=== PATIENT | male | born 1960 | race Caucasian/White ===

== ENCOUNTER 2017-07-21 03:07 | Inpatient (IN) | payer MEDICAID, OTHER ==
[~2017-07-21] VITALS: Ht 180.3 cm; Wt 60.1 kg
[~2017-07-21 03:07] MED LIST: COMBAER INH; COUM10TA PO; HYDR12.56 PO; IBUP-238 PO; METO100T PO; PRIL40CA PO
[2017-07-21 03:18] VITALS: BP 138/74; PULSE 88; RESP 22; O2SAT 100
--- NOTE | 2017-07-21 03:24 | PD ---
HPI Chief Complaint: Miller act Time Seen by Provider: 03:22 Travel History International Travel<30 days: No Contact w/Intl Traveler<30days: No Traveled to known affect area: No History of Present Illness HPI 56-year-old male presents under Miller act initiated by the Police Department. According to his paperwork the patient was seen in a parking lot. The patient said that he has been out of his medication and he has been having auditory hallucinations which have been telling him to kill himself. He has also had visual hallucinations in which she sees viral area was chasing him. He reportedly said that he was going to cut his throat with a knife. The patient was initially transported to [facility] but because he is on lifelong Coumadin he was felt to be outside of their scope of care. His only medical complaint at this time is of a productive cough with green sputum production for the past 2-3 days. He has no other complaints at this time. PFSH Past Medical History Arthritis: No Asthma: No Autoimmune Disease: No Blood Disorders: Yes (CLOTTING DISORDERS) Bipolar Disorder: Yes Anxiety: Yes Depression: Yes Heart Rhythm Problems: No Cancer: No Cardiovascular Problems: No High Cholesterol: No Chemotherapy: No Chest Pain: No Congestive Heart Failure: No COPD: Yes Cerebrovascular Accident: No Diabetes: No Diminished Hearing: Yes (PT STS BILATERAL) Endocrine: No Gastrointestinal Disorders: Yes (RECENT GASTRITIS) GERD: Yes Glaucoma: No Genitourinary: No Headaches: No Hepatitis: No Hiatal Hernia: No Hypertension: Yes Immune Disorder: No Kidney Stones: No Musculoskeletal: No Neurologic: No Psychiatric: Yes Reproductive: No Respiratory: Yes (STS HAD A COLLAPSED LUNG REPAIRED.) Migraines: No Myocardial Infarction: No Radiation Therapy: No Renal Failure: No Schizophrenia: Yes Seizures: No Sickle Cell Disease: No Sleep Apnea: No Thyroid Disease: No Ulcer: No Past Surgical History Abdominal Surgery: No AICD: No Appendectomy: No Arteriovenous Shunt: No Cholecystectomy: No Ear Surgery: No Endocrine Surgery: No Eye Surgery: No Genitourinary Surgery: No Gynecologic Surgery: No Insulin Pump: No Joint Replacement: No Oral Surgery: No Pacemaker: No Thoracic Surgery: Yes (STS HAD A COLLAPSED LUNG) Other Surgery: Yes (AMPUTATION OF FINGERS OF LEFT HAND) Social History Alcohol Use: Yes (12 PACK A DAY) Tobacco Use: Yes (PT STS 1 PPD) Substance Use: Yes (CRACK COCAINE RECENT 10 DAYS AGO) Allergies-Medications (Allergen,Severity, Reaction): Coded Allergies: morphine (Unverified Allergy, Unknown, STS MAKES HIM SICK, 03/22/17) Reported Meds & Prescriptions Reported Meds & Active Scripts Active Reported Zoloft (Sertraline HCl) 25 Mg Tab 20 Mg PO DAILY Latuda (Lurasidone) 60 Mg Tab 60 Mg PO DAILY Atrovent HFA 12.9 GM Inh (Ipratropium [place]) 17 Mcg/Actuation Aer 2 Puff INH Q6HR PRN Symbicort Inh (Budesonide/Formoterol Fumarate) 160-4.5 Mcg/Act Aero 2 Puff INH Q12HR Folic Acid 1 Mg Tablet PO DAILY Nitroglycerin SL (Nitroglycerin) 0.4 Mg Subl 0.4 Mg SL DIRECTED PRN ONE TABLET UNDER THE TONGUE NEEDED FOR CHEST PAIN, MAY REPEAT EVERY FIVE MINUTES FOR A TOTAL OF 3 DOSES OR CALL 911 IF NO RELIEF Atorvastatin (Atorvastatin Calcium) 20 Mg Tab 20 Mg PO HS Hydrochlorothiazide 12.5 Mg Cap 12.5 Mg PO DAILY Trazodone (Trazodone HCl) 100 Mg Tablet 200 Mg PO HS Diltiazem ER 24 HR 240 Mg Caper 120 Mg PO DAILY Aspirin 81 Mg Chew 81 Mg CHEW DAILY Omeprazole 40 Mg Cap 40 Mg PO DAILY Warfarin 5 Mg Tab 5 Mg PO DAILY Oxycodone (Oxycodone HCl) 5 Mg Cap 5 Mg PO Q6H PRN Lisinopril 5 Mg Tab 5 Mg PO DAILY Review of Systems Except as stated in HPI: all other systems reviewed are Neg Physical Exam Narrative GENERAL: Well-developed well-nourished male in no acute distress SKIN: Warm and dry. HEAD: Atraumatic. Normocephalic. EYES: Pupils equal and round. No scleral icterus. No injection or drainage. ENT: No nasal bleeding or discharge. Mucous membranes pink and moist. NECK: Trachea midline. No JVD. CARDIOVASCULAR: Regular rate and rhythm. No murmur appreciated. RESPIRATORY: No accessory muscle use. Clear to auscultation. Breath sounds equal bilaterally. GASTROINTESTINAL: Abdomen soft, non-tender, nondistended. Hepatic and splenic margins not palpable. MUSCULOSKELETAL: Previous left hand surgery noted. NEUROLOGICAL: Awake and alert. No obvious cranial nerve deficits. Motor grossly within normal limits. Normal speech. PSYCHIATRIC: Appropriate mood and affect Data Data Last Documented VS Vital Signs Date Time Temp Pulse Resp B/P (MAP) Pulse Ox O2 Delivery O2 Flow Rate FiO2 07/21/17 03:18 88 22 138/74 (95) 100 Orders Orders Complete Blood Count With Diff (07/21/17 03:21) Comprehensive Metabolic Panel (07/21/17 03:21) Psych Screen (07/21/17 03:21) Drug Screen, Random Urine (07/21/17 03:21) Alcohol (Ethanol) (07/21/17 03:21) Chest, Single Ap (07/21/17 ) Prothrombin Time / Inr (Pt) (07/21/17 03:21) Potassium Chloride (Kcl) (07/21/17 05:00) Warfarin (Coumadin) (07/21/17 05:00) Labs Laboratory Tests Test 07/21/17 03:45 White Blood Count 11.0 TH/MM3 Red Blood Count 4.62 MIL/MM3 Hemoglobin 14.6 GM/DL Hematocrit 43.3 % Mean Corpuscular Volume 93.8 FL Mean Corpuscular Hemoglobin 31.6 PG Mean Corpuscular Hemoglobin Concent 33.7 % Red Cell Distribution Width 15.4 % Platelet Count 223 TH/MM3 Mean Platelet Volume 7.3 FL Neutrophils (%) (Auto) 94.1 % Lymphocytes (%) (Auto) 4.7 % Monocytes (%) (Auto) 1.0 % Eosinophils (%) (Auto) 0.1 % Basophils (%) (Auto) 0.1 % Neutrophils # (Auto) 10.3 TH/MM3 Lymphocytes # (Auto) 0.5 TH/MM3 Monocytes # (Auto) 0.1 TH/MM3 Eosinophils # (Auto) 0.0 TH/MM3 Basophils # (Auto) 0.0 TH/MM3 CBC Comment AUTO DIFF Differential Comment AUTO DIFF CONFIRMED Platelet Estimate NORMAL Platelet Morphology Comment NORMAL Prothrombin Time 13.2 SEC Prothromb Time International Ratio 1.3 RATIO Blood Urea Nitrogen 7 MG/DL Creatinine 0.75 MG/DL Random Glucose 119 MG/DL Total Protein 7.3 GM/DL Albumin 3.4 GM/DL Calcium Level 8.5 MG/DL Alkaline Phosphatase 201 U/L Aspartate Amino Transf (AST/SGOT) 278 U/L Alanine Aminotransferase (ALT/SGPT) 738 U/L Total Bilirubin 0.4 MG/DL Sodium Level 135 MEQ/L Potassium Level 3.2 MEQ/L Chloride Level 100 MEQ/L Carbon Dioxide Level 28.6 MEQ/L Anion Gap 6 MEQ/L Estimat Glomerular Filtration Rate 108 ML/MIN Ethyl Alcohol Level 169 MG/DL MDM Medical Decision Making Medical Screen Exam Complete: Yes Emergency Medical Condition: Yes Medical Record Reviewed: Yes Differential Diagnosis Substance induced mood disorder, acute psychosis, schizophrenia, schizoaffective disorder, adjustment reaction, major depressive disorder Narrative Course 56-year-old male here under Miller act for psychiatric evaluation. Lab work is been reviewed. Potassium 3.2, oral potassium has been ordered. Elevated liver enzymes, he has a history of hepatitis C. Alcohol level is elevated at 169. INR subtherapeutic at 1.3, he reports that he has been compliant with his Coumadin, last use yesterday. Mental health screening discussed with the patient. Psychiatric screen ordered. Likely he will require medicine consultation during his hospitalization. Medically cleared for psychiatric disposition. Diagnosis Primary Impression: Medical clearance for psychiatric admission Antoine Conway Jul 21, 2017 03:24
[2017-07-21] MEDS ORDERED: ASPI-516 CHEW (03:29)
[2017-07-21] MEDS ORDERED: FOLI1TAB6 PO (03:29)
[2017-07-21] MEDS ORDERED: IPRA17I INH (03:29)
[2017-07-21] MEDS ORDERED: OMEP40CA2 PO (03:29)
[2017-07-21] MEDS ORDERED: NITR1SUB3 SL (03:29)
[2017-07-21] MEDS ORDERED: TRAZ100T10 PO (03:29)
[2017-07-21] MEDS ORDERED: LISI-519 PO (03:29)
[2017-07-21] MEDS ORDERED: SYMB160A INH (03:29)
[2017-07-21] MEDS ORDERED: DILT-48 PO (03:29)
[2017-07-21] MEDS ORDERED: WARF-23 PO (03:29)
[2017-07-21] MEDS ORDERED: ATOR20TA15 PO (03:29)
[2017-07-21] MEDS ORDERED: HYDR12.57 PO (03:29)
[2017-07-21] MEDS ORDERED: OXYC1CAP PO (03:29)
[2017-07-21] MEDS ORDERED: LURA1TAB2 PO (03:30)
[2017-07-21] MEDS ORDERED: ZOLO25TA PO (03:30)
[2017-07-21 04:04] LABS: AUTOMATED NEUTROPHIL # 10.3 TH/MM3 (1.8-7.7); BASOPHIL % 0.1 % (0.0-2.0); EOSINOPHIL % 0.1 % (0.0-4.0); HEMATOCRIT 43.3 % (39.0-51.0); LYMPH % 4.7 % (9.0-44.0); LYMPHOCYTE # 0.5 TH/MM3 (1.0-4.8); MEAN CELL VOLUME 93.8 FL (80.0-100.0); MEAN CORPUSCULAR HEMOGLOBIN 31.6 PG (27.0-34.0); MEAN CORPUSCULAR HGB CONC 33.7 % (32.0-36.0); NEUT % 94.1 % (16.0-70.0); PLATELET COUNT 223 TH/MM3 (150-450); RED BLOOD COUNT 4.62 MIL/MM3 (4.50-5.90); RED CELL DISTRIBUTION WIDTH 15.4 % (11.6-17.2)
[2017-07-21 04:05] LABS: HEMO FLAGS AUTO DIFF
[2017-07-21 04:14] LABS: INTERNATIONAL NORMALIZED RATIO 1.3 RATIO; PROTHROMBIN TIME - PATIENT 13.2 SEC (9.8-11.6)
--- NOTE | 2017-07-21 04:17 | RADRPT ---
EXAM DATE/TIME: 07/21/2017 03:50 [place] COMPARISON: No previous studies available for comparison. INDICATIONS : Shortness of breath, cough for 3 days MEDICAL HISTORY : Chronic obstructive pulmonary disease. SURGICAL HISTORY : Stent placement ENCOUNTER: Initial ACUITY: 3 days PAIN SCORE: 0/10 LOCATION: Bilateral chest FINDINGS: A single view of the chest demonstrates the lungs to be symmetrically aerated without evidence of mas s, infiltrate or effusion. No evidence of pneumothorax. The cardiomediastinal contours are unremark able. Osseous structures are intact. CONCLUSION: The lungs are clear. Manish Neal MD on July 21, 2017 at 4:15 Board Certified Radiologist. This report was verified electronically.
[2017-07-21 04:28] LABS: ALT (GPT) 738 U/L (12-78); ANION GAP 6 MEQ/L (5-15); AST (GOT) 278 U/L (15-37); BICARBONATE 28.6 MEQ/L (21.0-32.0); BLOOD UREA NITROGEN 7 MG/DL (7-18); CHLORIDE 100 MEQ/L (98-107); GLOMERULAR FILTRATION RATE 108 ML/MIN (>89); POTASSIUM 3.2 MEQ/L (3.5-5.1); SODIUM (NA) 135 MEQ/L (136-145)
[2017-07-21 04:30] LABS: ALKALINE PHOSPHATASE 201 U/L (45-117); TOTAL BILIRUBIN ADULT 0.4 MG/DL (0.2-1.0)
[2017-07-21 04:31] LABS: ALCOHOL 169 MG/DL (0-5)
[2017-07-21 04:51] LABS: PLATELET ESTIMATE SMEAR NORMAL (NORMAL); PLATELET MORPHOLOGY NORMAL (NORMAL); SCAN/DIFF AUTO DIFF CONFIRMED
[2017-07-21] MEDS ORDERED: WARFARIN SOD 5 MG TAB PO ONE (05:00)
[2017-07-21] MEDS ORDERED: POTASSIUM CHLORIDE 20 MEQ CONTROLLED RELEASE TAB PO ONE (05:00)
[2017-07-21] MEDS ORDERED: traMADol HCL 50 MG TAB PO ONE (05:45)
[2017-07-21 06:44] VITALS: BP 120/74; PULSE 100; RESP 16; TEMP 96.8; O2SAT 100
[2017-07-21 10:00] VITALS: BP 118/61; PULSE 103; RESP 18
[2017-07-21] MEDS ORDERED: FLUMAZENIL 0.5 MG/5 ML VIAL IV PUSH PRN (16:00)
[2017-07-21] MEDS ORDERED: diphenhydrAMINE HCL 50 MG CAP PO PRN (16:00)
[2017-07-21] MEDS ORDERED: LORazepam 2 MG TAB PO PRN (16:00)
[2017-07-21] MEDS ORDERED: MAGNESIUM HYDROXIDE SUSP 30 ML CUP PO PRN (16:00)
[2017-07-21] MEDS ORDERED: ALUMINUM/MAGNESIUM/SIMETH 30 ML CUP PO PRN (16:00)
[2017-07-21] MEDS ORDERED: LORazepam 1 MG TAB PO PRN (16:00)
[2017-07-21] MEDS ORDERED: diphenhydrAMINE HCL 50 MG/ML VIAL IM PRN (16:00)
[2017-07-21] MEDS: WARFARIN SOD 5 MG TAB PO SCH (16:15)
[2017-07-21] MEDS ORDERED: IPRATROPIUM BROMIDE 17 MCG/ACT 12.9 GM INHALER INH PRN (16:15)
[2017-07-21] MEDS ORDERED: NITROGLYCERIN 0.4 MG SL 25 TABS/BTL SL PRN (16:15)
--- NOTE | 2017-07-21 16:17 | HHI.HP ---
Provisional Diagnosis Admission Date Jul 21, 2017 at 16:00 [place] I. Schizoaffective disorder, depressive type Certification of Person's Competence To Provide Express and Informed Consent I have personally examined Raheel Tamez , a person being served at [facility] on, Jul 21, 2017 16:06. Express and informed consent means consent voluntarily given in writing, by a competent person, after sufficient explanation and disclosure of the subject matter involved to enable the person to make a knowing and willful decision without any element of force, fraud, deceit, duress, or other form of constraint or coercion. This person is 18 years of age or older, is not now known to be incompetent to consent to treatment with a guardian advocate, and does not have a health care surrogate or proxy currently making medical treatment decisions. I have found this person to be one of the following: [X] Competent to provide express and informed consent, as defined above, for voluntary admission to this facility and is competent to provide express and informed consent for treatment. He/she has the consistent capacity to make well reasoned, willful, and knowing decisions concerning his or her medical or mental health treatment. The person fully and consistently understands the purpose of the admission for examination/placement and is fully capable of personally exercising all rights [place] Incompetent to provide express and informed consent to voluntary admission, and this is incompetent to provide express and informed consent to treatment. The person must be transferred to involuntary status and a petition for a guardian advocate filed with the Circuit Court. [] Refusing to provide express and informed consent to voluntary admission but is competent to provide express and informed consent for treatment. The person must be discharged or transferred to involuntary status. Form shall be completed within 24 hours of a person's arrival at the receiving facility and filed in the clinical record of each person: 1. Admitted on a voluntary basis 2. Permitted to provide express and informed consent to his/her own treatment 3. Allowed to transfer from involuntary to voluntary status 4. Prior to permitting a person to consent to his or her own treatment after having been previously found incompetent to consent to treatment. History of Present Illness Capacity: Has Capacity HPI 56-year-old male brought in under a Miller act for suicidal ideation with plan. Patient describes a multiyear history of psychotic illness which has been variously described as schizophrenia or schizoaffective disorder or bipolar disorder. He is normally treated on an outpatient basis at [facility], and [facility]. He was unable to make his last appointment there due to transportation problems and he has run out of antipsychotic and antidepressant medications. He states over the last several days he has been increasingly depressed with increasing frequency of auditory hallucinations. The auditory hallucinations are telling him to kill himself and he has ideas of cutting his own throat. Apparently he was evaluated by law enforcement and the parking lot and Miller acted to this hospital. He is on anticoagulant therapy for a blood clotting disorder and cannot be treated at [facility]. In addition to the suicidal complaints, the patient also states he is being chased by fiery arrows. He believes this is "an illusion". He does continue to describe auditory hallucinations telling him to kill himself. He describes multiple symptoms of depression, including depressed mood, anhedonia, anxiety, feelings of hopelessness and helplessness, diminished energy, diminished self- esteem, insomnia, loss of appetite, etc. He has reportedly been self- medicating with alcohol. He is currently homeless but believes this will be a temporary situation. Review of Systems Psychiatric: COMPLAINS OF: Anxiety, Depression, Hallucinations, Suicidal Ideation Except as stated in HPI: all other systems reviewed are Neg Past Psych History Psychological trauma history Denied for psychological trauma. Violence risk - others (6 mos) Minimal Violence risk - self (6 mos) High Substance Abuse History Drugs/Alcohol past 12 months Patient admits to self medication with alcohol over the last 2 weeks. Alcohol level 169 when tested in this emergency department. Past Family Social History Coded Allergies: morphine (Unverified Allergy, Unknown, STS MAKES HIM SICK, 03/22/17) Reported Medications Sertraline (Zoloft) 25 Mg Tab, 20 MG PO DAILY, #30 TAB 0 Refills 07/21/17 Lurasidone (Latuda) 60 Mg Tab, 60 MG PO DAILY, #30 TAB 0 Refills 07/21/17 Ipratropium HFA 12.9 GM Inh (Atrovent HFA 12.9 GM Inh) 17 Mcg/Actuation Aer, 2 PUFF INH Q6HR Y for SHORTNESS OF BREATH, #1 INHALER 0 Refills 07/21/17 Budesonide-Formoterol Inh (Symbicort Inh) 160-4.5 Mcg/Act Aero, 2 PUFF INH Q12HR , #1 INHALER 0 Refills 07/21/17 Folic Acid (Folic Acid) 1 Mg Tablet, PO DAILY 07/21/17 Nitroglycerin SL (Nitroglycerin SL) 0.4 Mg Subl, 0.4 MG SL DIRECTED Y for CHEST PAIN, #100 TAB.SL 0 Refills ONE TABLET UNDER THE TONGUE NEEDED FOR CHEST PAIN, MAY REPEAT EVERY FIVE MINUTES FOR A TOTAL OF 3 DOSES OR CALL 911 IF NO RELIEF 07/21/17 Atorvastatin (Atorvastatin) 20 Mg Tab, 20 MG PO HS for Cholesterol Management, # 30 TAB 0 Refills 07/21/17 Hydrochlorothiazide (Hydrochlorothiazide) 12.5 Mg Cap, 12.5 MG PO DAILY, #30 CAP 0 Refills 07/21/17 Trazodone (Trazodone) 100 Mg Tablet, 200 MG PO HS for Control Depression, #30 TAB 0 Refills 07/21/17 Diltiazem ER 24 HR (Diltiazem ER 24 HR) 240 Mg Caper, 120 MG PO DAILY, #30 CAP 0 Refills 07/21/17 Aspirin (Aspirin) 81 Mg Chew, 81 MG CHEW DAILY, TAB 0 Refills 07/21/17 Omeprazole (Omeprazole) 40 Mg Cap, 40 MG PO DAILY, #30 CAP 0 Refills 07/21/17 Warfarin (Warfarin) 5 Mg Tab, 5 MG PO DAILY for Blood Clot Prevention, #30 TAB 0 Refills 07/21/17 Oxycodone (Oxycodone) 5 Mg Cap, 5 MG PO Q6H Y for PAIN, CAP 0 Refills 07/21/17 Lisinopril (Lisinopril) 5 Mg Tab, 5 MG PO DAILY for Blood Pressure Management, # 30 TAB 0 Refills 07/21/17 Current Medications Medications (Trade) Dose Ordered Sig/Sara Route Start Time Stop Time Status Last Admin (Benadryl) 50 mg Q6H PRN PO 07/21/17 16:00 UNV (Benadryl Inj) 50 mg Q6H PRN IM 07/21/17 16:00 UNV (Tylenol) 650 mg Q4H PRN PO 07/21/17 16:00 UNV (Milk Of Magnesia Liq) 30 ml DAILY PRN PO 07/21/17 16:00 UNV (Mag-Al Plus Susp Liq) 30 ml Q6H PRN PO 07/21/17 16:00 UNV (Desyrel) 50 mg HS PRN PO 07/21/17 16:00 UNV (Atarax) 50 mg Q6H PRN PO 07/21/17 16:00 UNV (Romazicon Inj) 0.2 mg Q1M PRN IV PUSH 07/21/17 16:00 UNV (Ativan) 1 mg Q4H PRN PO 07/21/17 16:00 UNV (Ativan) 2 mg Q2H PRN PO 07/21/17 16:00 UNV Family Psych History Unknown to patient. Social History Unemployed. Receives Social Security disability. Currently homeless. Minimal family support. Does abuse alcohol. Patient's Strengths (min. 2) Verbal and has access to healthcare. Physical Exam GENERAL: SKIN: Warm and dry. HEAD: Normocephalic. EYES: No scleral icterus. No injection or drainage. NECK: Supple, trachea midline. No JVD or lymphadenopathy. CARDIOVASCULAR: Regular rate and rhythm without murmurs, gallops, or rubs. RESPIRATORY: Breath sounds equal bilaterally. No accessory muscle use. GASTROINTESTINAL: Abdomen soft, non-tender, nondistended. MUSCULOSKELETAL: No cyanosis, or edema. BACK: Nontender without obvious deformity. No CVA tenderness. Vital Signs Vital Signs Date Time Temp Pulse Resp B/P (MAP) Pulse Ox O2 Delivery O2 Flow Rate FiO2 07/21/17 10:00 103 18 118/61 (80) Room Air 07/21/17 06:44 96.8 100 Lab Results Test 07/21/17 03:45 07/21/17 05:10 White Blood Count 11.0 TH/MM3 Red Blood Count 4.62 MIL/MM3 Hemoglobin 14.6 GM/DL Hematocrit 43.3 % Mean Corpuscular Volume 93.8 FL Mean Corpuscular Hemoglobin 31.6 PG Mean Corpuscular Hemoglobin Concent 33.7 % Red Cell Distribution Width 15.4 % Platelet Count 223 TH/MM3 Mean Platelet Volume 7.3 FL Neutrophils (%) (Auto) 94.1 % Lymphocytes (%) (Auto) 4.7 % Monocytes (%) (Auto) 1.0 % Eosinophils (%) (Auto) 0.1 % Basophils (%) (Auto) 0.1 % Neutrophils # (Auto) 10.3 TH/MM3 Lymphocytes # (Auto) 0.5 TH/MM3 Monocytes # (Auto) 0.1 TH/MM3 Eosinophils # (Auto) 0.0 TH/MM3 Basophils # (Auto) 0.0 TH/MM3 CBC Comment AUTO DIFF Differential Comment AUTO DIFF CONFIRMED Platelet Estimate NORMAL Platelet Morphology Comment NORMAL Prothrombin Time 13.2 SEC Prothromb Time International Ratio 1.3 RATIO Blood Urea Nitrogen 7 MG/DL Creatinine 0.75 MG/DL Random Glucose 119 MG/DL Total Protein 7.3 GM/DL Albumin 3.4 GM/DL Calcium Level 8.5 MG/DL Alkaline Phosphatase 201 U/L Aspartate Amino Transf (AST/SGOT) 278 U/L Alanine Aminotransferase (ALT/SGPT) 738 U/L Total Bilirubin 0.4 MG/DL Sodium Level 135 MEQ/L Potassium Level 3.2 MEQ/L Chloride Level 100 MEQ/L Carbon Dioxide Level 28.6 MEQ/L Anion Gap 6 MEQ/L Estimat Glomerular Filtration Rate 108 ML/MIN Ethyl Alcohol Level 169 MG/DL Urine Opiates Screen NEG Urine Barbiturates Screen NEG Urine Amphetamines Screen NEG Urine Benzodiazepines Screen NEG Urine Cocaine Screen NEG Urine Cannabinoids Screen NEG Mental Status Examination Appearance: Disheveled Consciousness: Alert Orientation: x4 Motor Activity: Normal gait Speech: Unremarkable Language: Adequate Fund of Knowledge: Adequate Attention and Concentration: Adequate Memory: Unremarkable Mood: Sad, Anxious Affect: Appropriate, Anxious Thought Process & Associations: Loose associations Thought Content: Hallucinations Hallucination Type: Auditory, Visual Delusion Type: None Suicidal Ideation: Yes Suicidal Plan: Yes Suicidal Intention: No Homicidal Ideation: No Homicidal Plan: No Homicidal Intention: No Insight: Fair Judgment: Impulsive Assessment & Plan Problem List: (1) Schizoaffective disorder, depressive type ICD Codes: F25.1 - Schizoaffective disorder, depressive type Assessment & Plan Estimated LOS: days. 56-year-old male who presents under a Miller act for suicidal ideation with command auditory hallucinations telling him to kill himself. Patient has thoughts and plan of cutting his own throat. He has a history of psychotic illness and is generally treated at [facility]. Ran out of medication and his symptoms have become crap progressively worse. At this point he is felt to be at high risk for self-harm and therefore being admitted for evaluation and treatment. This physician placed the patient back on his antipsychotic medication even though it is a relatively low dose. He was also placed back on a multitude of non-psychotropic medicines, including warfarin, due to a history of blood clotting. A hospitalist consult was also ordered to assist with patient management. Furthermore, this physician ordered a CBC and comprehensive metabolic panel to determine if any infectious process or metabolic process is causing or contributing to the patient's depression and psychosis. Additionally , this physician ordered thyroid stimulating hormone level, vitamin B-12 level and vitamin D level, again to determine if any deficiency in these areas is causing or contributing to the patient's depression and psychosis. An EKG is being ordered to assist with the evaluation of the patient's cardiac conduction system as his psychotropic medicines and adversely effect the electrical system of his heart. This physician spoke with the patient's nurse, Olvin, regarding his recent behavior. Lastly, case management will be involved to assist with further information gathering and disposition planning. Ronan Aleman MD Jul 21, 2017 16:17
[2017-07-21 16:36] VITALS: BP 118/61; PULSE 103; RESP 18
[2017-07-21] MEDS ORDERED: RESP: IPRATROPIUM 0.5 MG/2.5 ML NEB NEB PRN ×2 (16:45)
[2017-07-21] MEDS ORDERED: PILL SPLITTER OTHER PRN (17:15)
--- NOTE | 2017-07-21 17:36 | PD.CONS ---
HPI Service [facility] Consult Requested By Primary Care Physician No Primary Care Physician Diagnoses: Review of Systems Except as stated in HPI: all other systems reviewed are Neg Past Family Social History Allergies: Coded Allergies: morphine (Unverified Allergy, Unknown, STS MAKES HIM SICK, 03/22/17) Physical Exam Vital Signs Vital Signs Date Time Temp Pulse Resp B/P (MAP) Pulse Ox O2 Delivery O2 Flow Rate FiO2 07/21/17 16:36 103 18 118/61 (80) Room Air 07/21/17 10:00 103 18 118/61 (80) Room Air 07/21/17 06:44 96.8 100 16 120/74 (89) 100 Room Air 07/21/17 03:18 88 22 138/74 (95) 100 Physical Exam GENERAL: This is a well-nourished, well-developed patient, in no apparent distress. SKIN: No rashes, ecchymoses or lesions. Cool and dry. HEAD: Atraumatic. Normocephalic. No temporal or scalp tenderness. EYES: No scleral icterus. No injection or drainage. ENT: Nose without bleeding, purulent drainage or septal hematoma. Airway patent. NECK: Trachea midline. No JVD CARDIOVASCULAR: Regular rate and rhythm without murmurs, gallops, or rubs. RESPIRATORY: Clear to auscultation. Breath sounds equal bilaterally. No wheezes , rales, or rhonchi. GASTROINTESTINAL: Abdomen soft, non-tender, nondistended. No guarding. EXTREMITIES: no calf asymmetry or edema; Right hand amputation of digits from [place] complication NEUROLOGICAL: Awake and alert. Motor and sensory grossly within normal limits. Normal speech. Laboratory Laboratory Tests Test 07/21/17 03:45 07/21/17 05:10 White Blood Count 11.0 Red Blood Count 4.62 Hemoglobin 14.6 Hematocrit 43.3 Mean Corpuscular Volume 93.8 Mean Corpuscular Hemoglobin 31.6 Mean Corpuscular Hemoglobin Concent 33.7 Red Cell Distribution Width 15.4 Platelet Count 223 Mean Platelet Volume 7.3 Neutrophils (%) (Auto) 94.1 Lymphocytes (%) (Auto) 4.7 Monocytes (%) (Auto) 1.0 Eosinophils (%) (Auto) 0.1 Basophils (%) (Auto) 0.1 Neutrophils # (Auto) 10.3 Lymphocytes # (Auto) 0.5 Monocytes # (Auto) 0.1 Eosinophils # (Auto) 0.0 Basophils # (Auto) 0.0 CBC Comment AUTO DIFF Differential Comment AUTO DIFF CONFIRMED Platelet Estimate NORMAL Platelet Morphology Comment NORMAL Prothrombin Time 13.2 Prothromb Time International Ratio 1.3 Blood Urea Nitrogen 7 Creatinine 0.75 Random Glucose 119 Total Protein 7.3 Albumin 3.4 Calcium Level 8.5 Alkaline Phosphatase 201 Aspartate Amino Transf (AST/SGOT) 278 Alanine Aminotransferase (ALT/SGPT) 738 Total Bilirubin 0.4 Sodium Level 135 Potassium Level 3.2 Chloride Level 100 Carbon Dioxide Level 28.6 Anion Gap 6 Estimat Glomerular Filtration Rate 108 Ethyl Alcohol Level 169 Urine Opiates Screen NEG Urine Barbiturates Screen NEG Urine Amphetamines Screen NEG Urine Benzodiazepines Screen NEG Urine Cocaine Screen NEG Urine Cannabinoids Screen NEG Result Diagram: 07/21/17 0345 07/21/17 0345 Assessment and Plan Assessment and Plan bipolar dx house act herpes oralis pain - chronic htn aaa Jelly Berg MD Jul 21, 2017 17:35
[2017-07-21] MEDS: ENOXAPARIN SODIUM 80 MG/0.8 ML SYRINGE SQ SCH (18:00)
[2017-07-21 18:17] VITALS: BP 165/90; PULSE 102; RESP 16; TEMP 97.1; O2SAT 98
[2017-07-21] MEDS: ATORVASTATIN 20 MG TAB PO SCH (20:50)
[2017-07-21] MEDS: traZODone HCL 50 MG TAB PO PRN (21:53)
[2017-07-21] MEDS: BUDESONIDE-FORMOTEROL 160/4.5 MCG INHALER INH SCH (21:53)
[2017-07-21] MEDS: ACYCLOVIR 5% OINT 15 APPLIC/15 GM TUBE TOPICAL SCH (21:53)
[2017-07-21] MEDS: ACETAMINOPHEN 325 MG TAB PO PRN (21:54)
[2017-07-21] MEDS ORDERED: ACYCLOVIR 5% OINT 5 APPLIC/5 GM TUBE TOPICAL SCH (22:00)
[2017-07-22] MEDS: ACYCLOVIR 5% OINT 15 APPLIC/15 GM TUBE TOPICAL SCH ×5 (04:47→22:03)
[2017-07-22] MEDS: hydrOXYzine HCL 50 MG TAB PO PRN (04:48)
[2017-07-22] MEDS: ENOXAPARIN SODIUM 80 MG/0.8 ML SYRINGE SQ SCH ×2 (04:48→18:12)
[2017-07-22 05:12] VITALS: BP 141/87; PULSE 96; RESP 16; TEMP 97.4; O2SAT 99
[2017-07-22 07:18] LABS: AUTOMATED NEUTROPHIL # 15.4 TH/MM3 (1.8-7.7); BASOPHIL % 0.3 % (0.0-2.0); EOSINOPHIL % 0.1 % (0.0-4.0); HEMO FLAGS DIFF FINAL; LYMPH % 9.2 % (9.0-44.0); LYMPHOCYTE # 1.6 TH/MM3 (1.0-4.8); MEAN CELL VOLUME 94.6 FL (80.0-100.0); MEAN CORPUSCULAR HEMOGLOBIN 31.9 PG (27.0-34.0); MEAN CORPUSCULAR HGB CONC 33.7 % (32.0-36.0); MONO % 3.7 % (0.0-8.0); NEUT % 86.7 % (16.0-70.0); PLATELET COUNT 219 TH/MM3 (150-450); RED BLOOD COUNT 4.23 MIL/MM3 (4.50-5.90); RED CELL DISTRIBUTION WIDTH 15.3 % (11.6-17.2); WHITE BLOOD COUNT 17.8 TH/MM3 (4.0-11.0)
[2017-07-22 08:04] LABS: ANION GAP 6 MEQ/L (5-15); AST (GOT) 89 U/L (15-37); BICARBONATE 27.9 MEQ/L (21.0-32.0); BLOOD UREA NITROGEN 15 MG/DL (7-18); CHLORIDE 100 MEQ/L (98-107); GLOMERULAR FILTRATION RATE 119 ML/MIN (>89); POTASSIUM 4.1 MEQ/L (3.5-5.1); SODIUM (NA) 134 MEQ/L (136-145)
[2017-07-22] MEDS: LURASIDONE 40 MG TAB PO SCH (08:32)
[2017-07-22] MEDS: HYDROCHLOROTHIAZIDE 12.5 MG CAP PO SCH (08:33)
[2017-07-22] MEDS: PANTOPRAZOLE SOD 40 MG DELAYED RELEASE TAB PO SCH (08:33)
[2017-07-22] MEDS: ASPIRIN 81 MG CHEW TAB CHEW SCH (08:33)
[2017-07-22] MEDS: LISINOPRIL 5 MG TAB PO SCH (08:33)
[2017-07-22] MEDS: BUDESONIDE-FORMOTEROL 160/4.5 MCG INHALER INH SCH ×2 (08:34→22:02)
[2017-07-22] MEDS: ACETAMINOPHEN 325 MG TAB PO PRN ×2 (08:42→22:17)
[2017-07-22 08:43] LABS: ALKALINE PHOSPHATASE 159 U/L (45-117); ALT (GPT) 450 U/L (12-78); LDL CHOLESTEROL 90 MG/DL (0-99); TOTAL BILIRUBIN ADULT 0.3 MG/DL (0.2-1.0)
[2017-07-22] MEDS ORDERED: NON-FORMULARY DRUG (Omeprazole 40 MG) PO SCH (09:00)
[2017-07-22] MEDS: DILTIAZEM-CD 120 MG CAP ER PO SCH (10:32)
--- NOTE | 2017-07-22 11:54 | HHI.PYPN ---
Subjective Remarks Patient admitted by Dr. Ronan Aleman's initial psychiatric assessment reviewed and agreed with. I have completed the admission psychiatric template orders. I reviewed the medication reconciliation. Of interest patient is seen by me in July 2010 for similar episode related to alcohol use. Review of Systems Constitutional: DENIES: Diaphoretic episodes, Fatigue, Fever, Weight gain, Weight loss, Chills, Dizziness, Change in appetite, Night Sweats Endocrine: DENIES: Heat/cold intolerance, Polydipsia, Polyuria, Polyphagia Eyes: DENIES: Blurred vision, Diplopia, Eye inflammation, Eye pain, Vision loss , Photosensitivity, Double Vision Ears, nose, mouth, throat: DENIES: Tinnitus, Hearing loss, Vertigo, Nasal discharge, Oral lesions, Throat pain, Hoarseness, Ear Pain, Running Nose, Epistaxis, Sinus Pain, Toothache, Odynophagia Respiratory: DENIES: Apneas, Cough, Snoring, Wheezing, Hemoptysis, Sputum production, Shortness of breath Cardiovascular: DENIES: Chest pain, Palpitations, Syncope, Dyspnea on Exertion , PND, Lower Extremity Edema, Orthopnea, Claudication Gastrointestinal: DENIES: Abdominal pain, Black stools, Bloody stools, Constipation, Diarrhea, Nausea, Vomiting, Difficulty Swallowing, Anorexia Genitourinary: DENIES: Sexual dysfunction, Urinary frequency, Urinary incontinence, Urgency, Hematuria, Dysuria, Nocturia, Penile Discharge, Testicular Pain, Testicular Swelling Musculoskeletal: DENIES: Joint pain, Muscle aches, Stiffness, Joint Swelling, Back pain, Neck pain Integumentary: DENIES: Abnormal pigmentation, Nail changes, Pruritus, Rash Hematologic/lymphatic: DENIES: Bruising, Lymphadenopathy Immunologic/allergic: DENIES: Eczema, Urticaria Neurologic: DENIES: Abnormal gait, Headache, Localized weakness, Paresthesias, Seizures, Speech Problems, Tremor, Poor Balance Psychiatric: COMPLAINS OF: Anxiety, Depression, Hallucinations (vague a), Suicidal Ideation (vague) Mental Status Examination Appearance: Disheveled Consciousness: Alert Orientation: x4 Motor Activity: Normal gait Speech: Unremarkable Language: Adequate Fund of Knowledge: Adequate Attention and Concentration: Adequate Memory: Unremarkable Mood: Sad, Anxious Affect: Appropriate, Anxious Thought Process & Associations: Loose associations Thought Content: Hallucinations Hallucination Type: Auditory, Visual Delusion Type: None Suicidal Ideation: Yes Suicidal Plan: Yes Suicidal Intention: No Homicidal Ideation: No Homicidal Plan: No Homicidal Intention: No Insight: Fair Judgment: Impulsive Results Labs Test 07/22/17 05:57 07/22/17 11:25 White Blood Count 17.8 TH/MM3 Red Blood Count 4.23 MIL/MM3 Hemoglobin 13.5 GM/DL Hematocrit 40.0 % Mean Corpuscular Volume 94.6 FL Mean Corpuscular Hemoglobin 31.9 PG Mean Corpuscular Hemoglobin Concent 33.7 % Red Cell Distribution Width 15.3 % Platelet Count 219 TH/MM3 Mean Platelet Volume 7.7 FL Neutrophils (%) (Auto) 86.7 % Lymphocytes (%) (Auto) 9.2 % Monocytes (%) (Auto) 3.7 % Eosinophils (%) (Auto) 0.1 % Basophils (%) (Auto) 0.3 % Neutrophils # (Auto) 15.4 TH/MM3 Lymphocytes # (Auto) 1.6 TH/MM3 Monocytes # (Auto) 0.7 TH/MM3 Eosinophils # (Auto) 0.0 TH/MM3 Basophils # (Auto) 0.0 TH/MM3 CBC Comment DIFF FINAL Differential Comment Blood Urea Nitrogen 15 MG/DL Creatinine 0.69 MG/DL Random Glucose 106 MG/DL Total Protein 6.3 GM/DL Albumin 2.9 GM/DL Calcium Level 8.9 MG/DL Alkaline Phosphatase 159 U/L Aspartate Amino Transf (AST/SGOT) 89 U/L Alanine Aminotransferase (ALT/SGPT) 450 U/L Total Bilirubin 0.3 MG/DL Sodium Level 134 MEQ/L Potassium Level 4.1 MEQ/L Chloride Level 100 MEQ/L Carbon Dioxide Level 27.9 MEQ/L Anion Gap 6 MEQ/L Estimat Glomerular Filtration Rate 119 ML/MIN Triglycerides Level 119 MG/DL Cholesterol Level 169 MG/DL LDL Cholesterol 90 MG/DL HDL Cholesterol 55.0 MG/DL Cholesterol/HDL Ratio 3.07 RATIO Vitamin B12 Level 452 PG/ML 25-Hydroxy Vitamin D Total 27.1 ng/ML Thyroid Stimulating Hormone 3rd Gen 0.946 uIU/ML Vitals/IOs Vital Signs Date Time Temp Pulse Resp B/P (MAP) Pulse Ox O2 Delivery O2 Flow Rate FiO2 07/22/17 05:12 97.4 96 16 141/87 (105) 99 07/21/17 16:36 Room Air Assessment & Plan Problem List: (1) Schizoaffective disorder, depressive type ICD Codes: F25.1 - Schizoaffective disorder, depressive type (2) Alcohol abuse with intoxication ICD Codes: F10.129 - Alcohol abuse with intoxication, unspecified Assessment & Plan Estimated LOS: days patient continues depressed with vague auditory hallucinations of voices. He does somewhat minimizes the his alcohol use. The fact that he is homeless at the present time. Justification for Cont. Inpt. At this time patient will decompensate if placed in the lower level of care Discharge Planning Patient right now homeless has no funds until the first of the month. Placement may be problematic Request HC Surrog/Guard Advoc?: No Sonny Carney MD Jul 22, 2017 11:54
[2017-07-22 12:00] LABS: INTERNATIONAL NORMALIZED RATIO 1.9 RATIO; PROTHROMBIN TIME - PATIENT 18.8 SEC (9.8-11.6)
--- NOTE | 2017-07-22 14:45 | HHI.PR ---
Subjective Remarks Follow up on patient with Hep C, HTN, COPD, Buerger's disease. Patient seen and examined. Patient complaining of neck pain and is asking for Percocet. He has a history of RPR reactive and states he has gotten shots in the past but cannot give me any specifics. He is on Coumadin for his coagulopathy. He denies any complaints of fever or chills. Denies any chest pain or dyspnea. Denies any nausea, vomiting or abdominal pain. Objective Vitals Vital Signs Date Time Temp Pulse Resp B/P (MAP) Pulse Ox O2 Delivery O2 Flow Rate FiO2 07/22/17 05:12 97.4 96 16 141/87 (105) 99 07/21/17 18:17 97.1 102 16 165/90 (115) 98 07/21/17 16:36 103 18 118/61 (80) Room Air Result Diagram: 07/22/17 0557 07/22/17 0557 Imaging Last Impressions Chest X-Ray 07/21/17 0000 Signed Impressions: Service Date/Time: July 03:50 - CONCLUSION: The lungs are clear. Manish Neal MD Objective Remarks GENERAL: Thin, somewhat cachetic appearing male in no acute distress. Awake and alert. SKIN: Warm and dry. HEAD: Atraumatic. Normocephalic. EYES: Pupils equal and round. No scleral icterus. No injection or drainage. ENT: No nasal bleeding or discharge. Mucous membranes pink and moist. Herpetic lesions noted in mouth. NECK: Trachea midline. No JVD. CARDIOVASCULAR: Regular rate and rhythm. No murmur appreciated. RESPIRATORY: Nonlabored. Tight with poor air entry. GASTROINTESTINAL: Abdomen soft, non-tender, nondistended. (+)BS x 4 quadrants. MUSCULOSKELETAL: Previous left hand surgery/amputations. No lower extremity edema. NEUROLOGICAL: Awake and alert. No obvious cranial nerve deficits. Motor grossly within normal limits. Normal speech. PSYCHIATRIC: Appropriate mood and affect. Calm and cooperative. Medications and IVs Current Medications Medications (Trade) Dose Ordered Sig/Sara Route Start Time Stop Time Status Last Admin (Benadryl) 50 mg Q6H PRN PO 07/21/17 16:00 (Benadryl Inj) 50 mg Q6H PRN IM 07/21/17 16:00 (Tylenol) 650 mg Q4H PRN PO 07/21/17 16:00 07/22/17 08:42 (Milk Of Magnesia Liq) 30 ml DAILY PRN PO 07/21/17 16:00 (Mag-Al Plus Susp Liq) 30 ml Q6H PRN PO 07/21/17 16:00 (Desyrel) 50 mg HS PRN PO 07/21/17 16:00 07/21/17 21:53 (Atarax) 50 mg Q6H PRN PO 07/21/17 16:00 07/22/17 04:48 (Romazicon Inj) 0.2 mg Q1M PRN IV PUSH 07/21/17 16:00 (Ativan) 1 mg Q4H PRN PO 07/21/17 16:00 (Ativan) 2 mg Q2H PRN PO 07/21/17 16:00 07/21/17 21:54 (Aspirin Chew) 81 mg DAILY CHEW 07/22/17 09:00 07/22/17 08:33 (Lipitor) 20 mg HS PO 07/21/17 21:00 07/21/17 20:50 (Symbicort 160-4.5 Mcg Inh) 2 puff Q12HR INH 07/21/17 21:00 07/22/17 08:34 (Cardizem Cd) 120 mg DAILY PO 07/22/17 09:00 07/22/17 10:32 (Microzide) 12.5 mg DAILY PO 07/22/17 09:00 07/22/17 08:33 (Prinivil) 5 mg DAILY PO 07/22/17 09:00 07/22/17 08:33 (Latuda) 60 mg DAILY PO 07/22/17 09:00 07/22/17 08:32 (Nitrostat Sl) 0.4 mg 5 TIMES A DAY PRN SL 07/21/17 16:15 (Coumadin) 5 mg DAILY@1600 PO 07/21/17 16:15 07/21/17 16:15 (Protonix) 40 mg DAILY PO 07/22/17 09:00 07/22/17 08:33 (Atrovent Neb) 0.5 mg Q6HR NEB PRN NEB 07/21/17 16:45 (Pill Splitter) 1 ea UNSCH PRN OTHER 07/21/17 17:15 (Lovenox Inj) 70 mg Q12H SQ 07/21/17 18:00 07/22/17 04:48 (Roxicodone) 5 mg Q6H PRN PO 07/21/17 17:45 07/22/17 10:32 (Zovirax 5% Oint (15 Gm)) 1 applic 5 TIMES A DAY TOPICAL 07/21/17 22:00 07/22/17 13:07 Pharmacy Profile Note 0 ml @ 0 mls/hr UNSCH OTHER 07/22/17 08:15 A/P Assessment and Plan 56yo male admitted to inpatient psychiatry for psychosis and asked to be seen in consultation by hospitalist for medical management. Psychosis Bipolar disorder - Management per psychiatric team Hypertension - patient on Diltiazem 120mg daily, Lisinopril 5mg daily, HCTZ 12.5mg daily - continue to monitor BP and adjust tx accordingly Leukocytosis - Uncertain etiology. Possibly late steroid reaction. - Patient does not appear septic. He is afebrile. - Chest x-ray, which is personally reviewed, no acute process - Obtain UA - Trend white count, repeat CBC in a.m. 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 Pharmacy to dose. Continue on Lovenox bridge. - continue to follow INR - Discussed importance of smoking cessation Herpes oralis - continue on Acyclovir Transaminitis Hepatitis C, treatment brad ppr - Ethyl alcohol 169 - LFTs trending down - obtain Liver US - hep profile ordered - trend LFTs History of RPR reactive - obtain RPR with reflex to FTA ABS Dyslipidemia - hold statin therapy for now, may be able to resume if LFTs improve Vitamin D deficiency - start patient on po vitamin D supplementation - follow up with PCP as outpatient to monitor Gastritis GERD - PPI DVT prophylaxis - Patient is ambulatory Discussed with patient, nursing staff and Selina Perla Jul 22, 2017 14:45
--- NOTE | 2017-07-22 14:56 | EKG ---
Date Performed: 07/22/2017 Time Performed: 13:28:50 PTAGE: 56 years EKG: Sinus rhythm NORMAL ECG PREVIOUS TRACING : 06/10/2010 15.06 No significant change from previous tracing noted. DOCTOR: Jose Alberto Pelayo Interpretating Date/Time 07/22/2017 14:56:11
[2017-07-22] MEDS: WARFARIN SOD 5 MG TAB PO SCH (16:09)
[2017-07-22 16:19] LABS: HEMOGLOBIN A1a 1.4 %; HEMOGLOBIN A1b 0.9 %; HEMOGLOBIN Ao 84.8 %; HEMOGLOBIN F 1.1 %; HEMOGLOBIN P3 3.7 %
[2017-07-22 16:38] LABS: BLOOD, URINE NEG (NEG); GLUCOSE,URINE NEG (NEG); KETONE, URINE NEG (NEG); NITRITE,URINE NEG (NEG); URINE COLOR LIGHT-YELLOW (YELLW/STRAW)
[2017-07-22 16:40] LABS: COMMENT (UR) CULT NOT INDICATED; CULTURE IF INDICATED CULT NOT INDICATED
[2017-07-22 17:26] VITALS: BP 136/77; PULSE 91; RESP 16; TEMP 98.3; O2SAT 99
[2017-07-22] MEDS: RESP: ALBUTEROL 2.5 MG/IPRATROPIUM 0.5 MG NEB (SCH) NEB (20:38)
[2017-07-22] MEDS: ATORVASTATIN 20 MG TAB PO SCH (22:03)
[2017-07-22] MEDS: traZODone HCL 50 MG TAB PO PRN (22:20)
[2017-07-23] MEDS: ENOXAPARIN SODIUM 80 MG/0.8 ML SYRINGE SQ SCH ×2 (04:59→17:53)
[2017-07-23] MEDS: ACYCLOVIR 5% OINT 15 APPLIC/15 GM TUBE TOPICAL SCH ×5 (05:00→21:56)
[2017-07-23 05:47] VITALS: BP 109/64; PULSE 96; RESP 16; TEMP 98.2; O2SAT 100
[2017-07-23] MEDS: RESP: ALBUTEROL 2.5 MG/IPRATROPIUM 0.5 MG NEB (SCH) NEB ×3 (07:31→22:59)
--- NOTE | 2017-07-23 08:03 | RADRPT ---
EXAM DATE/TIME: 07/23/2017 07:17 [facility] COMPARISON: No previous studies available for comparison. INDICATIONS : Increased lab values. MEDICAL HISTORY : Hypercholesterolemia. Hypertension. Chronic obstructive pulmonary disease. Gastritis. Ulcer. GERD. Sc hizophrenia. Bipolar disorder. Buerger's disease. SURGICAL HISTORY : Left hand surgery. ENCOUNTER: Initial ACUITY: 1 month PAIN SCORE: 3/10 LOCATION: Bilateral upper quadrant MEASUREMENTS: LIVER: 13.6 cm length COMMON DUCT: 5 mm RIGHT KIDNEY: 9.5 x 5.2 x 4.4 cm SPLEEN: 10.7 cm length FINDINGS: LIVER: Normal echotexture without focal lesion or ductal dilatation. COMMON DUCT: No intraluminal mass or stone visualized. GALLBLADDER: Mild gallbladder wall thickening is noted. Contains no stones, demonstrates no pericholecystic fluid. No sonographic Peña's sign is noted. PANCREAS: The visualized portions are within normal limits. RIGHT KIDNEY: No hydronephrosis, stone or mass. SPLEEN: No focal lesion. MISC: Abdominal aortic aneurysm is noted measuring 3.8 cm in greatest dimension. CONCLUSION: 1. Mild gallbladder wall thickening without pericholecystic fluid, stones or sonographic Peña's sig n. If there is clinical concern for mild acute cholecystitis, a hepatobiliary scan may be helpful to rule out cystic duct obstruction. 2. Abdominal aortic aneurysm measuring 3.8 cm in greatest dimension. Christopher Butcher MD on July 23, 2017 at 7:57 Board Certified Radiologist. This report was verified electronically.
[2017-07-23] MEDS: PANTOPRAZOLE SOD 40 MG DELAYED RELEASE TAB PO SCH (09:13)
[2017-07-23] MEDS: HYDROCHLOROTHIAZIDE 12.5 MG CAP PO SCH (09:13)
[2017-07-23] MEDS: LURASIDONE 40 MG TAB PO SCH (09:14)
[2017-07-23] MEDS: LISINOPRIL 5 MG TAB PO SCH (09:15)
[2017-07-23] MEDS: DILTIAZEM-CD 120 MG CAP ER PO SCH (09:15)
[2017-07-23] MEDS: ASPIRIN 81 MG CHEW TAB CHEW SCH (09:15)
[2017-07-23] MEDS: BUDESONIDE-FORMOTEROL 160/4.5 MCG INHALER INH SCH ×2 (09:17→21:56)
[2017-07-23] MEDS ORDERED: RESP: ALBUTEROL 2.5 MG/IPRATROPIUM 0.5 MG NEB (PRN) NEB (10:15)
--- NOTE | 2017-07-23 10:22 | HHI.PR ---
Subjective Remarks Follow up on patient with Hep C, HTN, COPD, Buerger's disease. Patient seen and examined. Patient complaining of hurting all over but most specifically over left side of neck and left shoulder. He reports a fall on the left shoulder in the past. Requesting "Perc 10s". He denies any fever or chills. Denies any chest pain or shortness of breath. Denies any nausea, vomiting or abdominal pain. Objective Vitals Vital Signs Date Time Temp Pulse Resp B/P (MAP) Pulse Ox O2 Delivery O2 Flow Rate FiO2 07/23/17 05:47 98.2 96 16 109/64 (79) 100 07/22/17 17:26 98.3 91 16 136/77 (96) 99 I/O 07/22/17 07/22/17 07/22/17 07/23/17 07/23/17 07/23/17 07:00 15:00 23:00 07:00 15:00 23:00 Intake Total 360 ml Balance 360 ml Intake Oral 360 ml Result Diagram: 07/22/17 0557 07/22/17 0557 Imaging Last Impressions Liver Ultrasound 07/23/17 0000 Signed Impressions: Service Date/Time: Sunday, July 23, 2017 07:17 - CONCLUSION: 1. Mild gallbladder wall thickening without pericholecystic fluid, stones or sonographic Peña's sign. If there is clinical concern for mild acute cholecystitis, a hepatobiliary scan may be helpful to rule out cystic duct obstruction. 2. Abdominal aortic aneurysm measuring 3.8 cm in greatest dimension. Christopher Butcher MD Chest X-Ray 07/21/17 0000 Signed Impressions: Service Date/Time: July 03:50 - CONCLUSION: The lungs are clear. Manish Neal MD Objective Remarks GENERAL: Thin, somewhat cachetic appearing male in no acute distress. Awake and alert. Sitting in day room. SKIN: Warm and dry. HEAD: Atraumatic. Normocephalic. EYES: Pupils equal and round. No scleral icterus. No injection or drainage. ENT: No nasal bleeding or discharge. Mucous membranes pink and moist. Herpetic lesions noted in mouth. NECK: Trachea midline. No JVD. CARDIOVASCULAR: Regular rate and rhythm. No murmur appreciated. RESPIRATORY: Nonlabored. Fair air entry, clear to auscultation. GASTROINTESTINAL: Abdomen soft, non-tender, nondistended. (+)BS x 4 quadrants. MUSCULOSKELETAL: Previous left hand surgery/amputation. No lower extremity edema. (+)tenderness to palpation over left sided cervical paraspinous muscles and diffusely over left shoulder. ROM good in all planes of cervical spine. Decreased ROM with limited abduction to 90 degrees in left shoulder. (+) Impingement. NEUROLOGICAL: Awake and alert. Able to move all extremities spontaneously. Normal speech. PSYCHIATRIC: Appropriate mood and affect. Calm and cooperative. Medications and IVs Current Medications Medications (Trade) Dose Ordered Sig/Sara Route Start Time Stop Time Status Last Admin (Benadryl) 50 mg Q6H PRN PO 07/21/17 16:00 (Benadryl Inj) 50 mg Q6H PRN IM 07/21/17 16:00 (Tylenol) 650 mg Q4H PRN PO 07/21/17 16:00 07/22/17 22:17 (Milk Of Magnesia Liq) 30 ml DAILY PRN PO 07/21/17 16:00 (Mag-Al Plus Susp Liq) 30 ml Q6H PRN PO 07/21/17 16:00 (Desyrel) 50 mg HS PRN PO 07/21/17 16:00 07/22/17 22:20 (Atarax) 50 mg Q6H PRN PO 07/21/17 16:00 07/22/17 04:48 (Romazicon Inj) 0.2 mg Q1M PRN IV PUSH 07/21/17 16:00 (Ativan) 1 mg Q4H PRN PO 07/21/17 16:00 (Ativan) 2 mg Q2H PRN PO 07/21/17 16:00 07/21/17 21:54 (Aspirin Chew) 81 mg DAILY CHEW 07/22/17 09:00 07/23/17 09:15 (Lipitor) 20 mg HS PO 07/21/17 21:00 07/22/17 22:03 (Symbicort 160-4.5 Mcg Inh) 2 puff Q12HR INH 07/21/17 21:00 07/23/17 09:17 (Cardizem Cd) 120 mg DAILY PO 07/22/17 09:00 07/23/17 09:15 (Microzide) 12.5 mg DAILY PO 07/22/17 09:00 07/23/17 09:13 (Prinivil) 5 mg DAILY PO 07/22/17 09:00 07/23/17 09:15 (Latuda) 60 mg DAILY PO 07/22/17 09:00 07/23/17 09:14 (Nitrostat Sl) 0.4 mg 5 TIMES A DAY PRN SL 07/21/17 16:15 (Coumadin) 5 mg DAILY@1600 PO 07/21/17 16:15 07/22/17 16:09 (Protonix) 40 mg DAILY PO 07/22/17 09:00 07/23/17 09:13 (Atrovent Neb) 0.5 mg Q6HR NEB PRN NEB 07/21/17 16:45 (Pill Splitter) 1 ea UNSCH PRN OTHER 07/21/17 17:15 (Lovenox Inj) 70 mg Q12H SQ 07/21/17 18:00 07/23/17 04:59 (Roxicodone) 5 mg Q6H PRN PO 07/21/17 17:45 07/23/17 04:59 (Zovirax 5% Oint (15 Gm)) 1 applic 5 TIMES A DAY TOPICAL 07/21/17 22:00 07/23/17 09:20 Pharmacy Profile Note 0 ml @ 0 mls/hr UNSCH OTHER 07/22/17 08:15 (Duoneb Neb) 1 ampule Q6HR WHILE AWAKE NEB NEB 07/22/17 20:00 07/24/17 19:59 07/23/17 07:31 A/P Assessment and Plan 56yo male admitted to inpatient psychiatry for psychosis and asked to be seen in consultation by hospitalist for medical management. Psychosis Bipolar disorder - Management per psychiatric team Hypertension - patient on Diltiazem 120mg daily, Lisinopril 5mg daily, HCTZ 12.5mg daily. BP 109/64 this am. Hold HCTZ for now. - continue to monitor BP and adjust tx accordingly Leukocytosis - Uncertain etiology. Possibly late steroid reaction. - Patient does not appear septic. He is afebrile. 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 Pharmacy to dose. Continue on Lovenox bridge. - continue to follow INR/today's lab pending - Discussed importance of smoking cessation Herpes oralis - continue on Acyclovir Transaminitis Hepatitis C, treatment brad ppr - Ethyl alcohol 169 - LFTs trending down - Liver US normal appearing liver - hep profile (+)Hep C reactive. Standard precautions. Recommend patient follow up with rug inspector as outpatient. - trend LFTs/today's lab pending History of RPR reactive - RPR reactive with reflex to FTA ABS pending AAA - incidental finding of 3.8cm abdominal aortic aneurysm - recommend patient follow up with vascular surgeon as outpatient Dyslipidemia - hold statin therapy for now, may be able to resume if LFTs improve Vitamin D deficiency - continue patient on po vitamin D supplementation - follow up with PCP as outpatient to monitor Gastritis GERD - PPI DVT prophylaxis - Patient is ambulatory Discussed with patient, nursing staff and Selina Perla Jul 23, 2017 10:22
[2017-07-23] MEDS: DOCUSATE SODIUM 50 MG/SENNA 8.6 MG TAB PO SCH ×2 (11:00→21:57)
[2017-07-23] MEDS: LIDOCAINE HCL 5% PATCH T-DERMAL SCH (11:01)
[2017-07-23 11:24] LABS: AUTOMATED NEUTROPHIL # 5.3 TH/MM3 (1.8-7.7); BASOPHIL # 0.1 TH/MM3 (0-0.2); BASOPHIL % 0.7 % (0.0-2.0); EOSINOPHIL % 0.2 % (0.0-4.0); HEMATOCRIT 39.8 % (39.0-51.0); HEMO FLAGS DIFF FINAL; LYMPH % 29.5 % (9.0-44.0); LYMPHOCYTE # 2.4 TH/MM3 (1.0-4.8); MEAN CELL VOLUME 95.2 FL (80.0-100.0); MEAN CORPUSCULAR HEMOGLOBIN 31.7 PG (27.0-34.0); MEAN CORPUSCULAR HGB CONC 33.4 % (32.0-36.0); MONO % 5.2 % (0.0-8.0); NEUT % 64.4 % (16.0-70.0); PLATELET COUNT 215 TH/MM3 (150-450); RED BLOOD COUNT 4.18 MIL/MM3 (4.50-5.90); RED CELL DISTRIBUTION WIDTH 15.1 % (11.6-17.2); WHITE BLOOD COUNT 8.2 TH/MM3 (4.0-11.0)
[2017-07-23 11:33] LABS: PROTHROMBIN TIME - PATIENT 19.8 SEC (9.8-11.6)
[2017-07-23 11:48] LABS: ALT (GPT) 314 U/L (12-78); ANION GAP 8 MEQ/L (5-15); AST (GOT) 42 U/L (15-37); BICARBONATE 28.5 MEQ/L (21.0-32.0); BLOOD UREA NITROGEN 14 MG/DL (7-18); CHLORIDE 99 MEQ/L (98-107); GLOMERULAR FILTRATION RATE 102 ML/MIN (>89); POTASSIUM 3.7 MEQ/L (3.5-5.1); SODIUM (NA) 135 MEQ/L (136-145)
[2017-07-23 11:50] LABS: ALKALINE PHOSPHATASE 133 U/L (45-117); TOTAL BILIRUBIN ADULT 0.4 MG/DL (0.2-1.0)
--- NOTE | 2017-07-23 14:47 | HHI.PYPN ---
Subjective Remarks This is a request for second opinion. Admission note was reviewed and I agree with the contents. Case was discussed with nursing and patient was evaluated. Patient is diagnosed with schizoaffective disorder and he notes a long history of auditory hallucinations. Since becoming homeless a week ago the voices are gone worse and continue today to tell him to hurt himself. Denies any intent of doing so. Affect is blunted and attitude is somewhat guarded. Is alert and oriented 3. Mental Status Examination Appearance: Disheveled Consciousness: Alert Orientation: x4 Motor Activity: Normal gait Speech: Unremarkable Language: Adequate Fund of Knowledge: Adequate Attention and Concentration: Adequate Memory: Unremarkable Mood: Sad, Anxious Affect: Appropriate, Anxious Thought Process & Associations: Disorganized Thought Content: Hallucinations Hallucination Type: Auditory (to hurt himself), Visual Delusion Type: None Suicidal Ideation: No Suicidal Plan: No Suicidal Intention: No Homicidal Ideation: No Homicidal Plan: No Homicidal Intention: No Insight: Fair Judgment: Impulsive Results Labs Test 07/22/17 16:00 07/23/17 09:41 Urine Color LIGHT-YELLOW Urine Turbidity CLEAR Urine pH 7.0 Urine Specific [place] 1.007 Urine Protein NEG mg/dL Urine Glucose (UA) NEG mg/dL Urine Ketones NEG mg/dL Urine Occult Blood NEG Urine Nitrite NEG Urine Bilirubin NEG Urine Urobilinogen LESS THAN 2.0 MG/DL Urine Leukocyte Esterase NEG Microscopic Urinalysis Comment CULT NOT INDICATED White Blood Count 8.2 TH/MM3 Red Blood Count 4.18 MIL/MM3 Hemoglobin 13.3 GM/DL Hematocrit 39.8 % Mean Corpuscular Volume 95.2 FL Mean Corpuscular Hemoglobin 31.7 PG Mean Corpuscular Hemoglobin Concent 33.4 % Red Cell Distribution Width 15.1 % Platelet Count 215 TH/MM3 Mean Platelet Volume 7.6 FL Neutrophils (%) (Auto) 64.4 % Lymphocytes (%) (Auto) 29.5 % Monocytes (%) (Auto) 5.2 % Eosinophils (%) (Auto) 0.2 % Basophils (%) (Auto) 0.7 % Neutrophils # (Auto) 5.3 TH/MM3 Lymphocytes # (Auto) 2.4 TH/MM3 Monocytes # (Auto) 0.4 TH/MM3 Eosinophils # (Auto) 0.0 TH/MM3 Basophils # (Auto) 0.1 TH/MM3 CBC Comment DIFF FINAL Differential Comment Prothrombin Time 19.8 SEC Prothromb Time International Ratio 2.0 RATIO Blood Urea Nitrogen 14 MG/DL Creatinine 0.79 MG/DL Random Glucose 118 MG/DL Total Protein 6.3 GM/DL Albumin 3.0 GM/DL Calcium Level 8.7 MG/DL Alkaline Phosphatase 133 U/L Aspartate Amino Transf (AST/SGOT) 42 U/L Alanine Aminotransferase (ALT/SGPT) 314 U/L Total Bilirubin 0.4 MG/DL Sodium Level 135 MEQ/L Potassium Level 3.7 MEQ/L Chloride Level 99 MEQ/L Carbon Dioxide Level 28.5 MEQ/L Anion Gap 8 MEQ/L Estimat Glomerular Filtration Rate 102 ML/MIN Vitals/IOs Vital Signs Date Time Temp Pulse Resp B/P (MAP) Pulse Ox O2 Delivery O2 Flow Rate FiO2 07/23/17 05:47 98.2 96 16 109/64 (79) 100 07/21/17 16:36 Room Air Intake and Output 07/23/17 07/23/17 07/24/17 08:00 16:00 00:00 Intake Total 360 ml 360 ml Balance 360 ml 360 ml Assessment & Plan Problem List: (1) Schizoaffective disorder, depressive type ICD Codes: F25.1 - Schizoaffective disorder, depressive type (2) Alcohol abuse with intoxication ICD Codes: F10.129 - Alcohol abuse with intoxication, unspecified Assessment & Plan DC Ativan given he is on opiates. It has not been given for the past 2 days. I agree with the first opinion to continue petition. Criteria include acute psychosis and suicidal ideation at admission Justification for Cont. Inpt. Patient would decompensate in a less restrictive setting Request HC Surrog/Guard Advoc?: No Jack Campos DO Jul 23, 2017 14:47
[2017-07-23] MEDS: WARFARIN SOD 5 MG TAB PO SCH (16:25)
--- NOTE | 2017-07-23 17:58 | RADRPT ---
EXAM DATE/TIME: 07/23/2017 17:24 [facility] COMPARISON: CHEST SINGLE AP, July 21, 2017, 3:50. INDICATIONS : Neck pain left side. Fell 2 days ago. MEDICAL HISTORY : Hypercholesterolemia. Hypertension. Chronic obstructive pulmonary disease. Gastritis. Ulcer. GERD. Sc hizophrenia. Bipolar disorder. Buerger's disease. SURGICAL HISTORY : Stent placement ENCOUNTER: Subsequent ACUITY: 2 days PAIN SCORE: 7/10 LOCATION: Left Cervical FINDINGS: Two projection examination was performed. There is normal alignment and curvature of the vertebral b odies down to the level of C7. No evidence of fracture or subluxation. Vertebral body height is annette ntained. The disc spaces are maintained. The prevertebral soft tissues are of normal thickness. Th e atlanto-axial articulation is intact. CONCLUSION: 1. No acute fracture or subluxation. Gen Coulter MD on July 23, 2017 at 17:55 Board Certified Radiologist. This report was verified electronically.
--- NOTE | 2017-07-23 18:10 | RADRPT ---
EXAM DATE/TIME: 07/23/2017 17:30 [facility] COMPARISON: No previous studies available for comparison. INDICATIONS : Shoulder pain. MEDICAL HISTORY : Hypercholesterolemia. Hypertension. Chronic obstructive pulmonary disease. Gastritis. Ulcer. GERD. Sc hizophrenia. Bipolar disorder. Buerger's disease. SURGICAL HISTORY : Stent Placement. Left hand surgery. ENCOUNTER: Subsequent ACUITY: 2 days PAIN SCORE: 10/10 LOCATION: Left Shoulder FINDINGS: Two view examination of the left shoulder demonstrates no acute fracture or dislocation. No bony dest ructive changes. CONCLUSION: 1. No acute findings left shoulder radiographs. Jeremias Wright MD on July 23, 2017 at 18:06 Board Certified Radiologist. This report was verified electronically.
[2017-07-23 18:22] VITALS: BP 105/79; PULSE 109; RESP 18; TEMP 98.6; O2SAT 99
[2017-07-23] MEDS: REMOVE OLD PATCH T-DERMAL SCH (21:00)
[2017-07-23] MEDS: ACETAMINOPHEN 325 MG TAB PO PRN (21:57)
[2017-07-23] MEDS: traZODone HCL 50 MG TAB PO PRN (21:57)
[2017-07-24 06:00] VITALS: BP 117/67; PULSE 99; RESP 17; TEMP 98; O2SAT 100
[2017-07-24] MEDS: ACYCLOVIR 5% OINT 15 APPLIC/15 GM TUBE TOPICAL SCH ×5 (06:22→21:30)
[2017-07-24] MEDS: ENOXAPARIN SODIUM 80 MG/0.8 ML SYRINGE SQ SCH ×2 (06:22→17:19)
[2017-07-24 08:06] LABS: INTERNATIONAL NORMALIZED RATIO 1.9 RATIO; PROTHROMBIN TIME - PATIENT 19.2 SEC (9.8-11.6)
[2017-07-24] MEDS: ASPIRIN 81 MG CHEW TAB CHEW SCH (08:42)
[2017-07-24] MEDS: DILTIAZEM-CD 120 MG CAP ER PO SCH (08:42)
[2017-07-24] MEDS: PANTOPRAZOLE SOD 40 MG DELAYED RELEASE TAB PO SCH (08:43)
[2017-07-24] MEDS: LISINOPRIL 5 MG TAB PO SCH (08:44)
[2017-07-24] MEDS: DOCUSATE SODIUM 50 MG/SENNA 8.6 MG TAB PO SCH ×2 (08:44→21:29)
[2017-07-24] MEDS: LURASIDONE 40 MG TAB PO SCH (08:45)
[2017-07-24] MEDS: BUDESONIDE-FORMOTEROL 160/4.5 MCG INHALER INH SCH ×2 (08:50→21:28)
[2017-07-24] MEDS: LIDOCAINE HCL 5% PATCH T-DERMAL SCH ×2 (08:53→12:30)
[2017-07-24] MEDS: RESP: ALBUTEROL 2.5 MG/IPRATROPIUM 0.5 MG NEB (SCH) NEB ×3 (09:50→18:02)
--- NOTE | 2017-07-24 11:43 | HHI.PYPN ---
Subjective Remarks Patient was seen and case discussed with nursing. Patient continues to be followed by the medical team. With me he is very perseverative on his shoulder pain claiming it is a 10 out of 10. He is walking around comfortably in sitting down and eating lunch. He is open to a lidocaine patch. He is asking about discharge. Insight remains poor Mental Status Examination Appearance: Disheveled Consciousness: Alert Orientation: x4 Motor Activity: Normal gait Speech: Unremarkable Language: Adequate Fund of Knowledge: Adequate Attention and Concentration: Adequate Memory: Unremarkable Mood: Sad, Anxious Affect: Appropriate, Anxious Thought Process & Associations: Disorganized Thought Content: Hallucinations Hallucination Type: Auditory (denies today) Delusion Type: None Suicidal Ideation: No Suicidal Plan: No Suicidal Intention: No Homicidal Ideation: No Homicidal Plan: No Homicidal Intention: No Insight: Fair Judgment: Impulsive Results Labs Test 07/24/17 07:45 Prothrombin Time 19.2 SEC Prothromb Time International Ratio 1.9 RATIO Vitals/IOs Vital Signs Date Time Temp Pulse Resp B/P (MAP) Pulse Ox O2 Delivery O2 Flow Rate FiO2 07/24/17 06:00 98.0 99 17 117/67 (84) 100 07/21/17 16:36 Room Air Assessment & Plan Problem List: (1) Schizoaffective disorder, depressive type ICD Codes: F25.1 - Schizoaffective disorder, depressive type (2) Alcohol abuse with intoxication ICD Codes: F10.129 - Alcohol abuse with intoxication, unspecified Assessment & Plan Continue current treatment plan. Lidocaine patch ordered for shoulder Justification for Cont. Inpt. Patient will decompensate in a less restrictive setting Request HC Surrog/Guard Advoc?: No Jack Campos DO Jul 24, 2017 11:43
[2017-07-24] MEDS ORDERED: WARFARIN SOD 2 MG TAB PO SCH (16:00)
[2017-07-24] MEDS: WARFARIN SOD 5 MG TAB PO SCH (16:26)
[2017-07-24] MEDS ORDERED: WARFARIN SOD 2 MG TAB PO ONE (16:30)
[2017-07-24 18:27] VITALS: BP 113/54; PULSE 106; RESP 18; TEMP 98.7; O2SAT 100
[2017-07-24] MEDS: REMOVE OLD PATCH T-DERMAL SCH (21:00)
[2017-07-24] MEDS: traZODone HCL 50 MG TAB PO PRN (21:38)
[2017-07-25] MEDS: ENOXAPARIN SODIUM 80 MG/0.8 ML SYRINGE SQ SCH ×2 (05:21→18:05)
[2017-07-25] MEDS: ACYCLOVIR 5% OINT 15 APPLIC/15 GM TUBE TOPICAL SCH ×5 (05:23→21:21)
[2017-07-25 06:05] VITALS: BP 117/61; PULSE 92; RESP 17; TEMP 98.1
[2017-07-25 07:59] LABS: INTERNATIONAL NORMALIZED RATIO 1.4 RATIO; PROTHROMBIN TIME - PATIENT 14.3 SEC (9.8-11.6)
[2017-07-25] MEDS: DOCUSATE SODIUM 50 MG/SENNA 8.6 MG TAB PO SCH ×2 (09:00→21:21)
[2017-07-25] MEDS: LISINOPRIL 5 MG TAB PO SCH (10:52)
[2017-07-25] MEDS: ASPIRIN 81 MG CHEW TAB CHEW SCH (10:53)
[2017-07-25] MEDS: PANTOPRAZOLE SOD 40 MG DELAYED RELEASE TAB PO SCH (10:53)
[2017-07-25] MEDS: DILTIAZEM-CD 120 MG CAP ER PO SCH (10:53)
[2017-07-25] MEDS: LURASIDONE 40 MG TAB PO SCH (10:54)
[2017-07-25] MEDS: LIDOCAINE HCL 5% PATCH T-DERMAL SCH ×2 (10:56→11:01)
[2017-07-25] MEDS: BUDESONIDE-FORMOTEROL 160/4.5 MCG INHALER INH SCH ×2 (10:57→21:24)
--- NOTE | 2017-07-25 13:52 | PD.TTN ---
Patient Problems 1. Discharge planning 2. Medication compliance 3. Knowledge deficit 4. Lack of coping skills Progress Toward Goals Provider Present: Dr. Leobardo Carney Provider Input: 07/25/17 Patient arrived over the weekend and Dr. Carney will review patient's progress notes. Psychiatric Counselors Present: GAGAN Nava Psych Therapist Input: 07/25/17 This is a new patient and counselor will visit him today for assessment. Group Spec/RT/OT/SCOTT Present: AYDEN Contreras Group Spec/RT/OT/SCOTT Input: 07/25/17 Patient has attended very few activities since his admission on 07/21/17. Isolates to self. Documentation Scribe: GAGAN Nava Date Resolved: Jul 25, 2017 Stefania Castro Jul 25, 2017 13:52
--- NOTE | 2017-07-25 14:09 | HHI.PYPN ---
Subjective Remarks Patient seen in [facility] with nurse Rueda chart review, patient compliant medications. Of interest patient's INR this morning was 1.4. Medical service is aware of this and is continuing to treat. Patient himself is feeling better he now denies suicidality homicidality voices or visions. However he is also aware of his INR levels and with a mean. At this time patient still is in need of medical management. Thus I am unable to discharge him. He needs to be medically cleared. Will ask medicine if they can medically clear him within the next 24 hours Review of Systems Except as stated in HPI: all other systems reviewed are Neg Mental Status Examination Appearance: Disheveled Consciousness: Alert Orientation: x4 Motor Activity: Normal gait Speech: Unremarkable Language: Adequate Fund of Knowledge: Adequate Attention and Concentration: Adequate Memory: Unremarkable Mood: Sad, Anxious Affect: Appropriate, Anxious Thought Process & Associations: Disorganized Thought Content: Hallucinations Hallucination Type: Auditory (denies today) Delusion Type: None Suicidal Ideation: No Suicidal Plan: No Suicidal Intention: No Homicidal Ideation: No Homicidal Plan: No Homicidal Intention: No Insight: Fair Judgment: Impulsive Results Labs Test 07/25/17 06:54 Prothrombin Time 14.3 SEC Prothromb Time International Ratio 1.4 RATIO Vitals/IOs Vital Signs Date Time Temp Pulse Resp B/P (MAP) Pulse Ox O2 Delivery O2 Flow Rate FiO2 07/25/17 06:05 98.1 92 17 117/61 (79) 07/24/17 18:27 100 07/21/17 16:36 Room Air Intake and Output 07/25/17 07/25/17 07/26/17 08:00 16:00 00:00 Intake Total 240 ml Balance 240 ml Assessment & Plan Problem List: (1) Schizoaffective disorder, depressive type ICD Codes: F25.1 - Schizoaffective disorder, depressive type (2) Alcohol abuse with intoxication ICD Codes: F10.129 - Alcohol abuse with intoxication, unspecified Assessment & Plan Estimated LOS: days patient's mood is lifting now denying suicidality homicidality voices or visions. However his INR remains low. We need the medicine service to do appropriate adjustments with his medications and consider discharge tomorrow if baby medically cleared by that time Justification for Cont. Inpt. Patient still needs medical clearance Discharge Planning Patient states he has a place to live until he get into the [facility] he is making a commitment to sobriety Request HC Surrog/Guard Advoc?: No Sonny Carney MD Jul 25, 2017 14:09
[2017-07-25] MEDS: WARFARIN SOD 5 MG TAB PO SCH (15:24)
[2017-07-25] MEDS ORDERED: WARFARIN SOD 2.5 MG TAB PO ONE (16:00)
[2017-07-25 17:47] VITALS: BP 121/68; PULSE 105; RESP 18; TEMP 97.2; O2SAT 99
[2017-07-25] MEDS: REMOVE OLD PATCH T-DERMAL SCH (21:00)
[2017-07-25] MEDS: traZODone HCL 50 MG TAB PO PRN (22:14)
[2017-07-26 06:05] VITALS: BP 103/64; PULSE 87; RESP 16; TEMP 98.2; O2SAT 99
[2017-07-26] MEDS: ACYCLOVIR 5% OINT 15 APPLIC/15 GM TUBE TOPICAL SCH ×3 (06:09→13:53)
[2017-07-26] MEDS: ENOXAPARIN SODIUM 80 MG/0.8 ML SYRINGE SQ SCH ×2 (06:09→17:21)
[2017-07-26] MEDS: DOCUSATE SODIUM 50 MG/SENNA 8.6 MG TAB PO SCH ×2 (08:48→21:36)
[2017-07-26] MEDS: DILTIAZEM-CD 120 MG CAP ER PO SCH (08:48)
[2017-07-26] MEDS: ASPIRIN 81 MG CHEW TAB CHEW SCH (08:48)
[2017-07-26] MEDS: LISINOPRIL 5 MG TAB PO SCH (08:48)
[2017-07-26] MEDS: PANTOPRAZOLE SOD 40 MG DELAYED RELEASE TAB PO SCH (08:48)
[2017-07-26] MEDS: LURASIDONE 40 MG TAB PO SCH (08:48)
[2017-07-26] MEDS: LIDOCAINE HCL 5% PATCH T-DERMAL SCH ×2 (08:54)
[2017-07-26] MEDS: BUDESONIDE-FORMOTEROL 160/4.5 MCG INHALER INH SCH ×2 (08:54→21:00)
--- NOTE | 2017-07-26 10:51 | HHI.PYPN ---
Subjective Remarks Patient seen today with nurse Melchor, chart reviewed, patient continues compliant medication. We are still awaiting word from the hospitalist concerning discharge medications and treatment with his anticoagulants. Otherwise patient is alert oriented calm cooperative denying suicidality homicidality voices or visions. And wishing discharge. At this time the only impediment to discharge is medical cleared's Review of Systems Except as stated in HPI: all other systems reviewed are Neg Mental Status Examination Appearance: Disheveled Consciousness: Alert Orientation: x4 Motor Activity: Normal gait Speech: Unremarkable Language: Adequate Fund of Knowledge: Adequate Attention and Concentration: Adequate Memory: Unremarkable Mood: Sad, Anxious Affect: Appropriate, Anxious Thought Process & Associations: Disorganized Thought Content: Hallucinations Hallucination Type: Auditory (denies today) Delusion Type: None Suicidal Ideation: No Suicidal Plan: No Suicidal Intention: No Homicidal Ideation: No Homicidal Plan: No Homicidal Intention: No Insight: Fair Judgment: Impulsive Results Vitals/IOs Vital Signs Date Time Temp Pulse Resp B/P (MAP) Pulse Ox O2 Delivery O2 Flow Rate FiO2 07/26/17 06:05 98.2 87 16 103/64 (77) 99 Assessment & Plan Problem List: (1) Schizoaffective disorder, depressive type ICD Codes: F25.1 - Schizoaffective disorder, depressive type (2) Alcohol abuse with intoxication ICD Codes: F10.129 - Alcohol abuse with intoxication, unspecified Assessment & Plan Estimated LOS: days patient continues to improve, this time he is ready for discharge once she is medically cleared we'll await word from the hospitalist Justification for Cont. Inpt. Patient to be discharged once she is medically cleared by hospitalist Discharge Planning Patient to be discharged once he is medically cleared by hospitalist Request HC Surrog/Guard Advoc?: No Sonny Carney MD Jul 26, 2017 10:51
--- NOTE | 2017-07-26 13:12 | HHI.PR ---
Subjective Remarks Follow up on patient with Hep C, HTN, COPD, Buerger's disease. Patient seen and examined. Patient denies any new medical complaints. Patient is hoping to be discharged today. He states his goal INR is 2.5-3.0. He follows with PCP Dr. Vaughan in [place] and has an upcoming appointment on August 04. Informed patient of his AAA which he was already aware of and states he follows with a vascular surgeon. Objective Vitals Vital Signs Date Time Temp Pulse Resp B/P (MAP) Pulse Ox O2 Delivery O2 Flow Rate FiO2 07/26/17 06:05 98.2 87 16 103/64 (77) 99 07/25/17 17:47 97.2 105 18 121/68 (85) 99 I/O 07/25/17 07/25/17 07/25/17 07/26/17 07/26/17 07/26/17 07:00 15:00 23:00 07:00 15:00 23:00 Intake Total 240 ml 240 ml Balance 240 ml 240 ml Intake Oral 240 ml 240 ml Result Diagram: 07/23/17 0941 07/23/17 0941 Imaging Last Impressions Shoulder X-Ray 07/23/17 0000 Signed Impressions: Service Date/Time: Sunday, July 23, 2017 17:30 - CONCLUSION: 1. No acute findings left shoulder radiographs. Jeremias Wright MD Liver Ultrasound 07/23/17 0000 Signed Impressions: Service Date/Time: Sunday, July 23, 2017 07:17 - CONCLUSION: 1. Mild gallbladder wall thickening without pericholecystic fluid, stones or sonographic Peña's sign. If there is clinical concern for mild acute cholecystitis, a hepatobiliary scan may be helpful to rule out cystic duct obstruction. 2. Abdominal aortic aneurysm measuring 3.8 cm in greatest dimension. Christopher Butcher MD Cervical Spine X-Ray 07/23/17 0000 Signed Impressions: Service Date/Time: Sunday, July 23, 2017 17:24 - CONCLUSION: 1. No acute fracture or subluxation. Gen Coulter MD Chest X-Ray 07/21/17 0000 Signed Impressions: Service Date/Time: July 03:50 - CONCLUSION: The lungs are clear. Manish Neal MD Objective Remarks GENERAL: Thin, somewhat cachetic appearing male in no acute distress. Awake and alert. Lying in bed. SKIN: Warm and dry. HEAD: Atraumatic. Normocephalic. EYES: Pupils equal and round. No scleral icterus. No injection or drainage. ENT: No nasal bleeding or discharge. Mucous membranes pink and moist. NECK: Trachea midline. No JVD. CARDIOVASCULAR: Regular rate and rhythm. No murmur appreciated. RESPIRATORY: Nonlabored. Fair air entry, clear to auscultation. GASTROINTESTINAL: Abdomen soft, non-tender, nondistended. (+)BS x 4 quadrants. MUSCULOSKELETAL: Previous left hand surgery/amputation. No lower extremity edema. NEUROLOGICAL: Awake and alert. Able to move all extremities spontaneously. Normal speech. PSYCHIATRIC: Appropriate mood and affect. Calm and cooperative. Medications and IVs Current Medications Medications (Trade) Dose Ordered Sig/Sara Route Start Time Stop Time Status Last Admin (Benadryl) 50 mg Q6H PRN PO 07/21/17 16:00 (Benadryl Inj) 50 mg Q6H PRN IM 07/21/17 16:00 (Tylenol) 650 mg Q4H PRN PO 07/21/17 16:00 07/23/17 21:57 (Milk Of Magnesia Liq) 30 ml DAILY PRN PO 07/21/17 16:00 (Mag-Al Plus Susp Liq) 30 ml Q6H PRN PO 07/21/17 16:00 (Desyrel) 50 mg HS PRN PO 07/21/17 16:00 07/25/17 22:14 (Atarax) 50 mg Q6H PRN PO 07/21/17 16:00 07/22/17 04:48 (Romazicon Inj) 0.2 mg Q1M PRN IV PUSH 07/21/17 16:00 (Aspirin Chew) 81 mg DAILY CHEW 07/22/17 09:00 07/26/17 08:48 (Lipitor) 20 mg HS PO 07/21/17 21:00 Future Hold 07/22/17 22:03 (Symbicort 160-4.5 Mcg Inh) 2 puff Q12HR INH 07/21/17 21:00 07/26/17 08:54 (Cardizem Cd) 120 mg DAILY PO 07/22/17 09:00 07/26/17 08:48 (Microzide) 12.5 mg DAILY PO 07/22/17 09:00 Future Hold 07/23/17 09:13 (Prinivil) 5 mg DAILY PO 07/22/17 09:00 07/25/17 10:52 (Latuda) 60 mg DAILY PO 07/22/17 09:00 07/26/17 08:48 (Nitrostat Sl) 0.4 mg 5 TIMES A DAY PRN SL 07/21/17 16:15 (Coumadin) 5 mg DAILY@1600 PO 07/21/17 16:15 07/25/17 15:24 (Protonix) 40 mg DAILY PO 07/22/17 09:00 07/26/17 08:48 (Atrovent Neb) 0.5 mg Q6HR NEB PRN NEB 07/21/17 16:45 (Pill Splitter) 1 ea UNSCH PRN OTHER 07/21/17 17:15 (Lovenox Inj) 70 mg Q12H SQ 07/21/17 18:00 07/26/17 06:09 (Roxicodone) 5 mg Q6H PRN PO 07/21/17 17:45 07/26/17 06:10 (Zovirax 5% Oint (15 Gm)) 1 applic 5 TIMES A DAY TOPICAL 07/21/17 22:00 07/26/17 13:53 Pharmacy Profile Note 0 ml @ 0 mls/hr UNSCH OTHER 07/22/17 08:15 (Lidoderm 5% Patch.12 Hr) 1 patch DAILY T-DERMAL 07/23/17 11:00 07/26/17 08:54 (Duoneb Neb) 1 ampule Q4HR NEB PRN NEB 07/23/17 10:15 Miscellaneous Information 1 HS T-DERMAL 07/23/17 21:00 07/25/17 21:00 (Miladis-Colace) 1 tab BID PO 07/23/17 10:30 07/26/17 08:48 (Lidoderm 5% Patch.12 Hr) 1 patch DAILY T-DERMAL 07/24/17 12:00 07/26/17 08:54 A/P Assessment and Plan 56yo male admitted to inpatient psychiatry for psychosis and asked to be seen in consultation by hospitalist for medical management. Psychosis Bipolar disorder - Management per psychiatric team Hypertension - patient on Diltiazem 120mg daily, Lisinopril 5mg daily, HCTZ 12.5mg daily. BP 109/64 this am. Hold HCTZ for now. - continue to monitor BP and adjust tx accordingly Leukocytosis, resolved - Uncertain etiology. Possibly late steroid reaction. - Patient does not appear septic. He is afebrile. - Chest x-ray, which is personally reviewed, no acute process. UA negative. Left shoulder pain with hx of fall Left sided neck pain - continue on Roxicodone 5mg q6h prn pain - xray left shoulder and cervical spine showing no acute process - trial of Lidoderm patch COPD with ongoing tobaccoism - discussed with patient smoking cessation - continue on Symbicort - Duonebs q6 while awake x 2 days then prn - monitor respiratory status Buerger's disease on chronic anticoagulation with Coumadin with goal INR 2.5-3.0 - INR subtherapeutic, continue on Coumadin. Pharmacy to dose. Continue on Lovenox bridge. INR 1.5. Give extra 7.5mg dose of Warfarin today. Repeat INR in am. - Discussed importance of smoking cessation Transaminitis Hepatitis C, treatment brad ppr Alcohol use - Ethyl alcohol 169 - Liver US normal appearing liver - hep profile (+)Hep C reactive. Standard precautions. Recommend patient follow up with appliance repairer as outpatient. - LFTs trending down, follow up with PCP for continued monitoring. Recommended complete alcohol cessation. History of RPR reactive - RPR reactive with reflex to FTA ABS pending/follow up with PCP as outpatient AAA - incidental finding of 3.8cm abdominal aortic aneurysm - Discussed findings with patient, he is aware, already follows with vascular surgeon as outpatient Dyslipidemia - hold statin therapy for now, may be able to resume if LFTs improve Vitamin D deficiency - continue patient on po vitamin D supplementation - follow up with PCP as outpatient to monitor Gastritis GERD - PPI DVT prophylaxis - Patient is ambulatory Discussed with patient, nursing staff and Dr. Carney and Selina Sorensen Jul 26, 2017 13:12
[2017-07-26 15:04] LABS: INTERNATIONAL NORMALIZED RATIO 1.5 RATIO; PROTHROMBIN TIME - PATIENT 15.4 SEC (9.8-11.6)
[2017-07-26] MEDS ORDERED: WARFARIN SOD 5 MG TAB PO ONE (15:45)
[2017-07-26] MEDS: WARFARIN SOD 5 MG TAB PO SCH (16:00)
[2017-07-26 18:22] VITALS: BP 125/78; PULSE 93; RESP 18; TEMP 98.2; O2SAT 99
[2017-07-26] MEDS: REMOVE OLD PATCH T-DERMAL SCH (21:00)
[2017-07-26] MEDS: hydrOXYzine HCL 50 MG TAB PO PRN (21:36)
[2017-07-27] MEDS: ENOXAPARIN SODIUM 80 MG/0.8 ML SYRINGE SQ SCH ×2 (05:01→18:00)
[2017-07-27 06:18] VITALS: BP 146/82; PULSE 120; RESP 16; TEMP 98.3
[2017-07-27] MEDS: LISINOPRIL 5 MG TAB PO SCH (09:39)
[2017-07-27] MEDS: LURASIDONE 40 MG TAB PO SCH (09:39)
[2017-07-27] MEDS: DILTIAZEM-CD 120 MG CAP ER PO SCH (09:39)
[2017-07-27] MEDS: DOCUSATE SODIUM 50 MG/SENNA 8.6 MG TAB PO SCH (09:39)
[2017-07-27] MEDS: ASPIRIN 81 MG CHEW TAB CHEW SCH (09:40)
[2017-07-27] MEDS: PANTOPRAZOLE SOD 40 MG DELAYED RELEASE TAB PO SCH (09:40)
[2017-07-27] MEDS: LIDOCAINE HCL 5% PATCH T-DERMAL SCH ×2 (09:41→09:42)
[2017-07-27] MEDS: BUDESONIDE-FORMOTEROL 160/4.5 MCG INHALER INH SCH (09:43)
[2017-07-27 12:13] LABS: INTERNATIONAL NORMALIZED RATIO 1.6 RATIO; PROTHROMBIN TIME - PATIENT 16.6 SEC (9.8-11.6)
[2017-07-27] MEDS ORDERED: WARFARIN SOD 5 MG TAB PO ONE ×2 (13:30→16:00)
--- NOTE | 2017-07-27 14:37 | PD.TTN ---
Patient Problems 1. Discharge planning 2. Medication compliance 3. Knowledge deficit 4. Lack of coping skills Progress Toward Goals Provider Present: Dr. Leobardo Carney Provider Input: 07/25/17 Patient arrived over the weekend and Dr. Carney will review patient's progress notes. 07/27/17 Patient is doing better psychiatrically cleared, but needs to be medically cleared for discharge. Nurse(s) Input: 07/27/17 Patient's nurse Corinne reports patient is compliant with medication, has chronic pain. Utilizes pain medication. Speech is clear and congruent with underlying irritability. Denies suicidal and homicidal ideation. Patent reports no delusional content. Psychiatric Counselors Present: GAGAN Gage, GAGAN Nava Psych Therapist Input: 07/25/17 This is a new patient and counselor will visit him today for assessment. 07/27/17 Patient presents calm, pleasant, cooperative, affect appropriate. patient's speech was clear, and organized. Patient made good eye contact. Patient denies suicidal and homicidal ideation. Patient is psychiatrically clear but needs to be medically cleared to be discharged. Patient has court tomorrow. Group Spec/RT/OT/SCOTT Present: AYDEN Contreras Group Spec/RT/OT/SCOTT Input: 07/25/17 Patient has attended very few activities since his admission on 07/21/17. Isolates to self. 07/27/17 Patient attends [facility], independently and appropriately. Documentation Scribe: GAGAN Nava Date Resolved: Jul 25, 2017 Elba Hinojosa Jul 27, 2017 14:37
[2017-07-27] MEDS ORDERED: OXYC1CAP PO (14:49)
[2017-07-27] MEDS ORDERED: FOLI1TAB6 PO (14:49)
[2017-07-27] MEDS ORDERED: NITR1SUB3 SL (14:49)
[2017-07-27] MEDS ORDERED: TRAZ50TA12 PO (14:49)
[2017-07-27] MEDS ORDERED: SYMB160A INH (14:49)
[2017-07-27] MEDS ORDERED: ATOR20TA15 PO (14:49)
[2017-07-27] MEDS ORDERED: LURA1TAB2 PO (14:49)
[2017-07-27] MEDS ORDERED: HYDR12.57 PO (14:49)
[2017-07-27] MEDS ORDERED: IPRA17I INH (14:49)
[2017-07-27] MEDS ORDERED: LISI-519 PO (14:49)
[2017-07-27] MEDS ORDERED: WARF-23 PO (14:49)
[2017-07-27] MEDS ORDERED: DILT-48 PO (14:49)
[2017-07-27] MEDS ORDERED: ASPI-516 CHEW (14:49)
--- NOTE | 2017-07-27 14:56 | HHI.DS ---
Psychiatry Discharge Summary Inpatient Psychiatric care?: Yes Advance Directive: No Reason Not Provided: has none Mental Health AdvanceDirective: No Health Care Proxy: No Admission Admission Date Jul 21, 2017 at 16:00 Admission Diagnosis: (1) Alcohol abuse with intoxication ICD Code: F10.129 - Alcohol abuse with intoxication, unspecified (2) Schizoaffective disorder, depressive type ICD Code: F25.1 - Schizoaffective disorder, depressive type Brief History 56-year-old male brought in under a [place] act for suicidal ideation with plan. Patient describes a multiyear history of psychotic illness which has been variously described as schizophrenia or schizoaffective disorder or bipolar disorder. He is normally treated on an outpatient basis at [facility], and [facility]. He was unable to make his last appointment there due to transportation problems and he has run out of antipsychotic and antidepressant medications. He states over the last several days he has been increasingly depressed with increasing frequency of auditory hallucinations. The auditory hallucinations are telling him to kill himself and he has ideas of cutting his own throat. Apparently he was evaluated by law enforcement and the parking lot and Miller acted to this hospital. He is on anticoagulant therapy for a blood clotting disorder and cannot be treated at [facility]. In addition to the suicidal complaints, the patient also states he is being chased by fiery arrows. He believes this is "an illusion". He does continue to describe auditory hallucinations telling him to kill himself. He describes multiple symptoms of depression, including depressed mood, anhedonia, anxiety, feelings of hopelessness and helplessness, diminished energy, diminished self- esteem, insomnia, loss of appetite, etc. He has reportedly been self- medicating with alcohol. He is currently homeless but believes this will be a temporary situation. Tobacco Use In Past 30 Days: 5 or More Cigarettes/Day Alcohol Use: 4 or More Times Per Week Hospital Course Patient's hospital course was uneventful, showing cooperation with the medication from day 1. Initially was somewhat isolating. And at times mildly irritable. He was also cooperative with the medical service adjustment of his anticoagulation treatment. He did have a good past weekend. Patient had some difficulty with his INR levels. There Philemon stabilize the point where his been medically cleared today for discharge. Patient denies suicidality homicidality voices or visions. States is a place to go with a friend of his until his check comes in the end of this month and he can make ranges to go to get [place] which is sober living facility. Thus patient be discharged today. He states his appointment with his primary care doctor for further anticoagulation management and treatment on about 1227 at 1228 Results Blood Pressure 146 / 82 Vital Signs Date Time Temp Pulse Resp B/P (MAP) Pulse Ox O2 Delivery O2 Flow Rate FiO2 07/27/17 06:18 98.3 120 16 146/82 (103) 07/26/17 18:22 99 Laboratory Tests Test 07/25/17 06:54 07/26/17 13:49 07/27/17 11:20 Prothrombin Time 14.3 SEC (9.8-11.6) 15.4 SEC (9.8-11.6) 16.6 SEC (9.8-11.6) Laboratory Results Test 07/22/17 05:57 Cholesterol Level 169 MG/DL (120-200) HDL Cholesterol 55.0 MG/DL (40.0-60.0) Hemoglobin A1c 5.7 % (4.3-6.0) LDL Cholesterol 90 MG/DL (0-99) Triglycerides Level 119 MG/DL (42-150) Summary of Procedures None done Imaging Last Impressions Shoulder X-Ray 07/23/17 0000 Signed Impressions: Service Date/Time: Sunday, July 23, 2017 17:30 - CONCLUSION: 1. No acute findings left shoulder radiographs. Jeremias Wright MD Liver Ultrasound 07/23/17 0000 Signed Impressions: Service Date/Time: Sunday, July 23, 2017 07:17 - CONCLUSION: 1. Mild gallbladder wall thickening without pericholecystic fluid, stones or sonographic Peña's sign. If there is clinical concern for mild acute cholecystitis, a hepatobiliary scan may be helpful to rule out cystic duct obstruction. 2. Abdominal aortic aneurysm measuring 3.8 cm in greatest dimension. Christopher Butcher MD Cervical Spine X-Ray 07/23/17 0000 Signed Impressions: Service Date/Time: Sunday, July 23, 2017 17:24 - CONCLUSION: 1. No acute fracture or subluxation. Gen Coulter MD Chest X-Ray 07/21/17 0000 Signed Impressions: Service Date/Time: July 03:50 - CONCLUSION: The lungs are clear. Manish Neal MD Pending results at discharge: No Medications # of Antipsychotic meds at D/C: 1 Approp Antipsych med options 1 - Minimum of three failed multiple trials of monotherapy. 2 - Documented plan to taper to monotherapy due to previous use of multiple meds OR cross-taper in progress at D/C. 3 - Documentation of augmentation of Clozapine. 4 - Justification other than those listed in allowable values 1-3, document here : Discharge Discharge Date: Jul 27, 2017 Discharge Diagnosis: (1) Alcohol abuse with intoxication Diagnosis: Secondary ICD Code: F10.129 - Alcohol abuse with intoxication, unspecified (2) Schizoaffective disorder, depressive type Diagnosis: Principal (follow-up PCP next week for continued anticoagulation treatment) ICD Code: F25.1 - Schizoaffective disorder, depressive type Pt Condition on Discharge: Stable Discharge Disposition: Discharge Home Discharge Instructions Diet Instructions: Heart Healthy Diet Activities you can perform: Regular-No Restrictions Scheduled Appointment: Jani Smith Discharge Time > 30 minutes Mental Status Examination Appearance: Disheveled Consciousness: Alert Orientation: x4 Motor Activity: Normal gait Speech: Unremarkable Language: Adequate Fund of Knowledge: Adequate Attention and Concentration: Adequate Memory: Unremarkable Mood: Sad, Anxious Affect: Appropriate, Anxious Thought Process & Associations: Disorganized Thought Content: Hallucinations Hallucination Type: Auditory (denies today) Delusion Type: None Suicidal Ideation: No Suicidal Plan: No Suicidal Intention: No Homicidal Ideation: No Homicidal Plan: No Homicidal Intention: No Insight: Fair Judgment: Impulsive Discharge/Advance Care Plan Health Problems: (1) Schizoaffective disorder, depressive type (2) Alcohol abuse with intoxication Goals to promote your health * To prevent worsening of your condition and complications * To maintain your health at the optimal level Directions to meet your goals Take your medications as prescribed Follow your dietary instruction Follow activity as directed Keep your appointments as scheduled Take your immunizations and boosters as scheduled If your symptoms worsen call your PCP, if no PCP go to Urgent Care Center or Emergency Room For 28/02 questions related to your inpatient stay or results of tests pending at discharge, please contact Dr. Sonny Carney at Smoking is Dangerous to Your Health. Avoid second hand smoking Sonny Carney MD Jul 27, 2017 14:56
[2017-07-27] MEDS: WARFARIN SOD 5 MG TAB PO SCH (16:00)
== END 2017-07-27 18:45 | disposition home or self-care (01) | DRG 885 ==
LOC: NEPD 03:07 → NEDA 16:00 → H260 17:45
PROVIDERS: ADMIT Psychiatry & Neurology Psychiatry; ATTEND Psychiatry & Neurology Psychiatry
DX: F25.1 Schizoaffective disorder, depressive type (principal); R64 Cachexia; D68.9 Coagulation defect, unspecified; I73.1 Thromboangiitis obliterans [Buerger's disease]; B00.89 Other herpesviral infection; Z68.1 Body mass index [BMI] 19.9 or less, adult; R74.0 Nonspecific elevation of levels of transaminase and lactic acid dehydrogenase [LDH]; Z59.0 Homelessness; F10.129 Alcohol abuse with intoxication, unspecified; Y90.6 Blood alcohol level of 120-199 mg/100 ml; Z79.01 Long term (current) use of anticoagulants; B19.20 Unspecified viral hepatitis C without hepatic coma; I10 Essential (primary) hypertension; F17.200 Nicotine dependence, unspecified, uncomplicated; E78.5 Hyperlipidemia, unspecified; E55.9 Vitamin D deficiency, unspecified; K21.9 Gastro-esophageal reflux disease without esophagitis; M25.512 Pain in left shoulder; M54.2 Cervicalgia; I71.4 Abdominal aortic aneurysm, without rupture
CPT/HCPCS: 71010; 72040; 73030; 76705; 80053; 80061; 80074; 80307; 81001; 82306; 82607; 83036; 84443; 85025; 85610; 86592; 86593; 86780; 93005; 94640; 94664; 99285; J1650

== ENCOUNTER 2017-08-12 06:25 | Inpatient (IN) | payer MEDICAID ==
[~2017-08-12] VITALS: Ht 180.3 cm; Wt 60.0 kg
[~2017-08-12 06:25] MED LIST changes: +ASPI-516 CHEW; +ATOR20TA15 PO; -COMBAER INH; -COUM10TA PO; +DILT-48 PO; +FOLI1TAB6 PO; -HYDR12.56 PO; +HYDR12.57 PO; -IBUP-238 PO; +IPRA17I INH; +LISI-519 PO; +LURA1TAB2 PO; -METO100T PO; +NITR1SUB3 SL; +OXYC1CAP PO; -PRIL40CA PO; +SYMB160A INH; +TRAZ50TA12 PO; +WARF-23 PO
[2017-08-12 06:44] VITALS: BP 173/92; PULSE 113; RESP 18; TEMP 96.2; O2SAT 96
--- NOTE | 2017-08-12 08:18 | PD ---
HPI Chief Complaint: Psychiatric Symptoms Time Seen by Provider: 07:28 Travel History International Travel<30 days: No Contact w/Intl Traveler<30days: No Traveled to known affect area: No History of Present Illness HPI 56-year-old male presents to the emergency department around [place]. According to the law enforcement report the patient "was being kicked out of his friend's apartment and stated he was going to "lay down and ." " The patient was seen at [facility] in [place] prior to going to [facility] where they would not accept him secondary to his lifetime use of Coumadin. Reports being suicidal. Has a plan to slit his throat with a knife. Denies auditory or visual hallucinations. Denies illicit drug use. Reports alcohol use. Onset of symptoms was earlier this morning. Symptoms are constant. Character symptoms of suicidal thoughts. Severity of symptoms as moderate to severe. Kicked out of the house exacerbated the symptoms. No known relieving factors. Has not taken any medications or drainage to alleviate his symptoms. Allergies to morphine. History of COPD, blood clots. Currently complaining of feeling short of breath. Is asking for his Spiriva and Atrovent inhalers. Inhalers will be provided. He is in no acute respiratory distress without retractions or tachypnea. His lungs are clear and equal throughout. He has no other emergent medical complaints. No other modifying factors or associated signs and symptoms. PFSH Past Medical History Arthritis: No Asthma: Yes Autoimmune Disease: No Blood Disorders: Yes (CLOTTING DISORDERS) Bipolar Disorder: Yes Anxiety: Yes Depression: Yes Heart Rhythm Problems: No Cancer: No Cardiovascular Problems: Yes High Cholesterol: Yes Chemotherapy: No Chest Pain: No Congestive Heart Failure: No COPD: Yes Cerebrovascular Accident: No Diabetes: No Diminished Hearing: Yes (PT STS BILATERAL) Endocrine: No Gastrointestinal Disorders: Yes (RECENT GASTRITIS) GERD: Yes Glaucoma: No Genitourinary: No Headaches: No Hepatitis: No Hiatal Hernia: No Hypertension: Yes Immune Disorder: No Kidney Stones: No Musculoskeletal: Yes Neurologic: No Psychiatric: Yes (Schizoaffective Disorder, Depressive Type) Reproductive: No Respiratory: Yes (STS HAD A COLLAPSED LUNG REPAIRED.) Migraines: No Myocardial Infarction: No Radiation Therapy: No Renal Failure: No Schizophrenia: Yes Seizures: No Sickle Cell Disease: No Sleep Apnea: No Thyroid Disease: No Triglycerides - High: Yes Ulcer: Yes Past Surgical History Abdominal Surgery: No AICD: No Appendectomy: No Arteriovenous Shunt: No Cholecystectomy: No Ear Surgery: No Endocrine Surgery: No Eye Surgery: No Genitourinary Surgery: No Gynecologic Surgery: No Insulin Pump: No Joint Replacement: No Oral Surgery: No Pacemaker: No Thoracic Surgery: Yes (STS HAD A COLLAPSED LUNG) Other Surgery: Yes (AMPUTATION OF FINGERS OF LEFT HAND) Social History Alcohol Use: Yes (few times a week) Tobacco Use: Yes (quit 07/20/17) Substance Use: Yes Allergies-Medications (Allergen,Severity, Reaction): Coded Allergies: morphine (Unverified Allergy, Unknown, STS MAKES HIM SICK, 03/22/17) Reported Meds & Prescriptions Reported Meds & Active Scripts Active Trazodone (Trazodone HCl) 50 Mg Tab 50 Mg PO HS PRN Latuda (Lurasidone) 60 Mg Tab 60 Mg PO DAILY Atrovent HFA 12.9 GM Inh (Ipratropium [place]) 17 Mcg/Actuation Aer 2 Puff INH Q6HR PRN Symbicort Inh (Budesonide/Formoterol Fumarate) 160-4.5 Mcg/Act Aero 2 Puff INH Q12HR Folic Acid 1 Mg Tablet 1 Mg PO DAILY Nitroglycerin SL (Nitroglycerin) 0.4 Mg Subl 0.4 Mg SL DIRECTED PRN ONE TABLET UNDER THE TONGUE NEEDED FOR CHEST PAIN, MAY REPEAT EVERY FIVE MINUTES FOR A TOTAL OF 3 DOSES OR CALL 911 IF NO RELIEF Atorvastatin (Atorvastatin Calcium) 20 Mg Tab 20 Mg PO HS Hydrochlorothiazide 12.5 Mg Cap 12.5 Mg PO DAILY Diltiazem ER 24 HR 240 Mg Caper 120 Mg PO DAILY Aspirin 81 Mg Chew 81 Mg CHEW DAILY Warfarin 5 Mg Tab 5 Mg PO DAILY Lisinopril 5 Mg Tab 5 Mg PO DAILY Review of Systems Except as stated in HPI: all other systems reviewed are Neg Physical Exam Narrative GENERAL: Well-nourished, well-developed male patient, in no acute distress; appears older than stated age SKIN: Warm and dry. HEAD: Atraumatic. Normocephalic. EYES: Pupils equal and round. ENT: Mucosa pink and moist. NECK: Supple. Trachea midline. CARDIOVASCULAR: Regular rate and rhythm. No murmur appreciated. RESPIRATORY: No accessory muscle use. Clear to auscultation. Breath sounds equal bilaterally. GASTROINTESTINAL: Abdomen soft, non-tender, nondistended. Hepatic and splenic margins not palpable. Bowel sounds are active 4 quadrants. MUSCULOSKELETAL: No obvious deformities. No clubbing. No cyanosis. No edema. NEUROLOGICAL: Awake and alert. Oriented 3. No obvious cranial nerve deficits. Motor grossly within normal limits. Normal speech. Moves all extremities. 5/5 strength to all extremities. PSYCHIATRIC: No delusional thought processes. No hallucinations. Data Data Last Documented VS Vital Signs Date Time Temp Pulse Resp B/P (MAP) Pulse Ox O2 Delivery O2 Flow Rate FiO2 08/12/17 10:22 108 18 156/84 (108) 100 08/12/17 08:51 99.4 08/12/17 06:44 Room Air Orders Orders Diet Regular Basic (08/12/17 Breakfast) Psych Screen (08/12/17 07:28) Prothrombin Time / Inr (Pt) (08/12/17 07:28) Albuterol Hfa Inh (Proair Hfa Inh) (08/12/17 08:30) Budeson-Formot 160-4.5 Mcg Inh (Symbicor (08/12/17 09:00) Warfarin (Coumadin) (08/12/17 16:00) Chest, Single Ap (08/12/17 08:58) Diet Diabetic (08/12/17 Lunch) Amoxicillin (Trimox) (08/12/17 10:45) Admit To Inpatient Psych (08/12/17 ) Vital Signs (Adult) SAM.Q12H.E (08/12/17 10:57) Activity Oob Ad Renetta (08/12/17 10:57) Level Of Observation (Psych) (08/12/17 10:57) Lorazepam (Ativan) (08/12/17 11:00) Lorazepam Inj (Ativan Inj) (08/12/17 11:00) Acetaminophen (Tylenol) (08/12/17 11:00) Magnesium Hydroxide Liq (Milk Of Magnesi (08/12/17 11:00) Al-Mag Hy-Si 40-40-4 Mg/Ml Liq (Mag-Al P (08/12/17 11:00) Trazodone (Desyrel) (08/12/17 11:00) Complete Blood Count With Diff (08/13/17 06:00) Comprehensive Metabolic Panel (08/13/17 06:00) Thyroid Stimulating Hormone (08/13/17 06:00) Lipid Profile (08/13/17 06:00) Hemoglobin (Hgb) A1c (08/13/17 06:00) Vitamin D, 25-Hydroxy (08/13/17 06:00) Vitamin B12 (08/13/17 06:00) Ot Request For Service (08/12/17 10:57) Consult Hospitalist (08/12/17 ) Electrocardiogram (08/13/17 ) MDM Medical Decision Making Medical Screen Exam Complete: Yes Emergency Medical Condition: Yes Medical Record Reviewed: Yes Differential Diagnosis Medical clearance for psychiatric admission, suicidal threat, COPD exacerbation , sinusitis Narrative Course Patient presents under a Miller act. Physical examination and vital signs are essentially unremarkable. Patient was seen at [facility] this morning and he had labs drawn. I reviewed the labs from the hospital and CBC, CMP, acetaminophen level, salicylate level all unremarkable. Blood alcohol 259. I do not feel it is necessary to have labs drawn again at this time. He is complaining of shortness of breath and asking for his scheduled inhalers. Spiriva and Ventolin provided to the patient.. He has history of COPD. Psych screen has been ordered. 0858: Susana Frazier, RN says the patient is complaining of coughing up sputum and she saw some yellowish/brown sputum on the patient's bed. His temp recheck is 99.4. I will order chest x-ray to rule out pneumonia. 1036: Chest x-ray with no acute findings. Azithromycin ordered for suspected sinusitis. 1355: INR 2.5. If the laboratory results are unremarkable, the patient will be medically cleared for psychiatric evaluation and disposition. Diagnosis Primary Impression: Medical clearance for psychiatric admission Additional Impression: Sinusitis Qualified Codes: J32.9 - Chronic sinusitis, unspecified Condition: Stable Corazon Mcclelland Aug 12, 2017 08:18
[2017-08-12 08:51] VITALS: TEMP 99.4
[2017-08-12] MEDS ORDERED: BUDESONIDE-FORMOTEROL 160/4.5 MCG INHALER INH SCH (09:00)
[2017-08-12] MEDS: ALBUTEROL SULFATE 90 MCG/ACT HFA 8 GM INHALER INH PRN (10:07)
--- NOTE | 2017-08-12 10:09 | RADRPT ---
EXAM DATE/TIME: 08/12/2017 09:06 [facility] COMPARISON: CHEST SINGLE AP, July 21, 2017, 3:50. INDICATIONS : Short of breath. MEDICAL HISTORY : Hypercholesterolemia. Hypertension. Chronic obstructive pulmonary disease. SURGICAL HISTORY : hand surgery ENCOUNTER: Initial ACUITY: 2 days PAIN SCORE: 2/10 LOCATION: upper chest FINDINGS: The heart and mediastinal structures are stable. The pulmonary vascular pattern is normal. The lungs are clear. An old fracture involving the left posterior seventh rib is noted. CONCLUSION: No acute cardiopulmonary disease. Christopher Butcher MD on August 12, 2017 at 10:04 Board Certified Radiologist. This report was verified electronically.
[2017-08-12 10:22] VITALS: BP 156/84; PULSE 108; RESP 18; O2SAT 100
[2017-08-12] MEDS ORDERED: LORazepam 1 MG TAB PO PRN ×2 (11:00→11:15)
[2017-08-12] MEDS ORDERED: NITROGLYCERIN 0.4 MG SL 25 TABS/BTL SL PRN (11:00)
[2017-08-12] MEDS ORDERED: LORazepam 2 MG/ML VIAL IM PRN ×4 (11:00→11:15)
[2017-08-12] MEDS ORDERED: MAGNESIUM HYDROXIDE SUSP 30 ML CUP PO PRN (11:00)
[2017-08-12] MEDS ORDERED: IPRATROPIUM BROMIDE 17 MCG/ACT 12.9 GM INHALER INH PRN (11:00)
[2017-08-12] MEDS ORDERED: ALUMINUM/MAGNESIUM/SIMETH 30 ML CUP PO PRN (11:00)
[2017-08-12] MEDS ORDERED: FLUMAZENIL 0.5 MG/5 ML VIAL IV PUSH PRN (11:15)
[2017-08-12] MEDS ORDERED: LORazepam 2 MG TAB PO PRN (11:15)
[2017-08-12] MEDS ORDERED: LORazepam 2 MG/ML VIAL IV PUSH PRN (11:15)
--- NOTE | 2017-08-12 11:17 | HHI.HP ---
Provisional Diagnosis Admission Date [place] I. Major depression Certification of Person's Competence To Provide Express and Informed Consent I have personally examined Raheel Tamez , a person being served at [facility] on, Aug 12, 2017 11:03. Express and informed consent means consent voluntarily given in writing, by a competent person, after sufficient explanation and disclosure of the subject matter involved to enable the person to make a knowing and willful decision without any element of force, fraud, deceit, duress, or other form of constraint or coercion. This person is 18 years of age or older, is not now known to be incompetent to consent to treatment with a guardian advocate, and does not have a health care surrogate or proxy currently making medical treatment decisions. I have found this person to be one of the following: [X] Competent to provide express and informed consent, as defined above, for voluntary admission to this facility and is competent to provide express and informed consent for treatment. He/she has the consistent capacity to make well reasoned, willful, and knowing decisions concerning his or her medical or mental health treatment. The person fully and consistently understands the purpose of the admission for examination/placement and is fully capable of personally exercising all rights assured [place] Incompetent to provide express and informed consent to voluntary admission, and this is incompetent to provide express and informed consent to treatment. The person must be transferred to involuntary status and a petition for a guardian advocate filed with the Circuit Court. [] Refusing to provide express and informed consent to voluntary admission but is competent to provide express and informed consent for treatment. The person must be discharged or transferred to involuntary status. Form shall be completed within 24 hours of a person's arrival at the receiving facility and filed in the clinical record of each person: 1. Admitted on a voluntary basis 2. Permitted to provide express and informed consent to his/her own treatment 3. Allowed to transfer from involuntary to voluntary status 4. Prior to permitting a person to consent to his or her own treatment after having been previously found incompetent to consent to treatment. History of Present Illness Capacity: Has Capacity HPI 56-year-old male with numerous medical issues, presents under a Miller act due to suicidal ideation with plan. Patient was transferred here from [facility] after he told their staff he would "lay down and ". The patient continues to have suicidal ideation with plan of lying down in the street, being run over by a car, etc. Apparently this was precipitated by the patient being kicked out of his residence his roommate. The patient describes multiple symptoms of depression including depressed mood, anhedonia, anxiety, feelings of hopelessness and helplessness, suicidal ideation with plan, diminished energy, diminished concentration, sleep disturbance, appetite loss, social withdrawal, etc. The patient has a number of medical issues including hypertension, cardiovascular disease, the amputation of one hand, COPD, and he takes blood thinners. He admits to being noncompliant with his medications recently, both psychotropic and nonpsychotropic medicines. He also admits to smoking one pack of cigarettes per day and drinking approximately a 12 pack of beer per day. Review of Systems ROS Limitations: Clinical Condition Psychiatric: COMPLAINS OF: Mood changes, Suicidal Ideation Except as stated in HPI: all other systems reviewed are Neg Past Psych History Psychological trauma history Unknown psychological trauma. Patient has been admitted previously with diagnoses of depression and schizoaffective disorder Violence risk - others (6 mos) Minimal Violence risk - self (6 mos) High Substance Abuse History Drugs/Alcohol past 12 months Patient has been abusing alcohol. Toxicology screen was not positive for anything else. Past Family Social History Coded Allergies: morphine (Unverified Allergy, Unknown, STS MAKES HIM SICK, 03/22/17) Active Scripts Trazodone (Trazodone) 50 Mg Tab, 50 MG PO HS Y for INSOMNIA, #30 TAB 0 Refills Prov:Sonny Carney MD 07/27/17 Lurasidone (Latuda) 60 Mg Tab, 60 MG PO DAILY for health, #30 TAB 0 Refills Prov:Sonny Carney MD 07/27/17 Ipratropium HFA 12.9 GM Inh (Atrovent HFA 12.9 GM Inh) 17 Mcg/Actuation Aer, 2 PUFF INH Q6HR Y for SHORTNESS OF BREATH, #1 INHALER 0 Refills Prov:Sonny Carney MD 07/27/17 Budesonide-Formoterol Inh (Symbicort Inh) 160-4.5 Mcg/Act Aero, 2 PUFF INH Q12HR for health, #1 INHALER 0 Refills Prov:Sonny Carney MD 07/27/17 Folic Acid (Folic Acid) 1 Mg Tablet, 1 MG PO DAILY for health, #30 TAB 0 Refills Prov:Sonny Carney MD 07/27/17 Nitroglycerin SL (Nitroglycerin SL) 0.4 Mg Subl, 0.4 MG SL DIRECTED Y for CHEST PAIN, #100 TAB.SL 0 Refills ONE TABLET UNDER THE TONGUE NEEDED FOR CHEST PAIN, MAY REPEAT EVERY FIVE MINUTES FOR A TOTAL OF 3 DOSES OR CALL 911 IF NO RELIEF Prov:Sonny Carney MD 07/27/17 Atorvastatin (Atorvastatin) 20 Mg Tab, 20 MG PO HS for Cholesterol Management, # 30 TAB 0 Refills Prov:Sonny Carney MD 07/27/17 Hydrochlorothiazide (Hydrochlorothiazide) 12.5 Mg Cap, 12.5 MG PO DAILY for health, #30 CAP 0 Refills Prov:Sonny Carney MD 07/27/17 Diltiazem ER 24 HR (Diltiazem ER 24 HR) 240 Mg Caper, 120 MG PO DAILY for health , #30 CAP 0 Refills Prov:Sonny Carney MD 07/27/17 Aspirin (Aspirin) 81 Mg Chew, 81 MG CHEW DAILY for health, #30 TAB 0 Refills Prov:Sonny Carney MD 07/27/17 Warfarin (Warfarin) 5 Mg Tab, 5 MG PO DAILY for Blood Clot Prevention, #30 TAB 0 Refills Prov:Sonny Carney MD 07/27/17 Lisinopril (Lisinopril) 5 Mg Tab, 5 MG PO DAILY for Blood Pressure Management, # 30 TAB 0 Refills Prov:Sonny Carney MD 07/27/17 Discontinued Scripts Oxycodone (Oxycodone) 5 Mg Cap, 5 MG PO Q6H Y for PAIN, #15 CAP 0 Refills Prov:Sonny Carney MD 07/27/17 Current Medications Medications (Trade) Dose Ordered Sig/Sara Route Start Time Stop Time Status Last Admin (Proair Hfa Inh) 2 puff Q4HR PRN INH 08/12/17 08:30 (Symbicort 160-4.5 Mcg Inh) 2 puff Q12HR INH 08/12/17 09:00 (Coumadin) 5 mg DAILY@1600 PO 08/12/17 16:00 (Trimox) 500 mg BID PO 08/12/17 10:45 08/22/17 10:44 (Ativan) 1 mg Q6H PRN PO 08/12/17 11:00 (Ativan Inj) 1 mg Q6H PRN IM 08/12/17 11:00 UNV (Tylenol) 650 mg Q4H PRN PO 08/12/17 11:00 UNV (Milk Of Magnesia Liq) 30 ml DAILY PRN PO 08/12/17 11:00 (Mag-Al Plus Susp Liq) 30 ml Q6H PRN PO 08/12/17 11:00 (Desyrel) 50 mg HS PRN PO 08/12/17 11:00 Family Psych History Patient feels others in his family have suffered from depression. Social History Patient is unemployed and apparently disabled from work. He is currently homeless. He has been self-medicating with alcohol. He smokes one pack of cigarettes per day. He has virtually no family support at this time. Patient's Strengths (min. 2) Verbal and has access to healthcare. Physical Exam GENERAL: SKIN: Warm and dry. HEAD: Normocephalic. EYES: No scleral icterus. No injection or drainage. NECK: Supple, trachea midline. No JVD or lymphadenopathy. CARDIOVASCULAR: Regular rate and rhythm without murmurs, gallops, or rubs. RESPIRATORY: Breath sounds equal bilaterally. No accessory muscle use. GASTROINTESTINAL: Abdomen soft, non-tender, nondistended. MUSCULOSKELETAL: No cyanosis, or edema. BACK: Nontender without obvious deformity. No CVA tenderness. Vital Signs Vital Signs Date Time Temp Pulse Resp B/P (MAP) Pulse Ox O2 Delivery O2 Flow Rate FiO2 08/12/17 10:22 108 18 156/84 (108) 100 08/12/17 08:51 99.4 08/12/17 06:44 Room Air Mental Status Examination Appearance: Disheveled Consciousness: Alert Orientation: x4 Motor Activity: Normal gait Speech: Hesitant Language: Adequate Fund of Knowledge: Adequate Attention and Concentration: Easily Distracted Memory: Unremarkable Mood: Sad, Anxious Affect: Sad, Anxious Thought Process & Associations: Intact Thought Content: Appropriate Hallucination Type: None Delusion Type: None Suicidal Ideation: Yes Suicidal Plan: Yes Suicidal Intention: No Homicidal Ideation: No Homicidal Plan: No Homicidal Intention: No Insight: Fair Judgment: Impulsive Assessment & Plan Problem List: (1) Severe major depression, single episode, without psychotic features ICD Codes: F32.2 - Major depressive disorder, single episode, severe without psychotic features Assessment & Plan Estimated LOS: days. 56-year-old male brought in under a Miller act with suicidal ideation and plan. Patient is felt to be at high risk for self-harm due to the following factors: He is currently homeless, jobless and without family support. He has multiple medical conditions which she is not taking care of and in fact is noncompliant with his medicines. He has been self- medicating with alcohol. He has multiple symptoms of depression, a history of psychiatric hospitalizations and suicidality with plan. For these reasons he is being admitted for further evaluation and treatment. This physician has ordered a CBC and comprehensive metabolic panel to determine if any infectious process or metabolic process is causing or contributing to his depression. Conversely, his lipids and hemoglobin A1c will be checked as psychotropic medicines can increase his potential for diabetes, high cholesterol , etc. He will also be placed on a CIWA protocol due to the possibility of alcohol withdrawal symptoms. Furthermore, this physician ordered a hep us consult to assist with management of the patient's multiple medical issues. Thyroid-stimulating hormone, vitamin B-12 and vitamin D levels were also ordered to determine if deficiencies in these areas might also be contributing to the patient's depression. An EKG was ordered as the patient has a history of cardiovascular disease and psychotropic medicines can adversely affect the electrical system of his heart. This physician discussed the patient's care with nurse Meza. Lastly, case management will be involved to assist with further information gathering and disposition planning. Ronan Aleman MD Aug 12, 2017 11:17
[2017-08-12] MEDS: AMOXICILLIN (TRIHYDRATE) 500 MG CAP PO SCH ×2 (11:29→21:00)
[2017-08-12 11:47] LABS: INTERNATIONAL NORMALIZED RATIO 2.5 RATIO; PROTHROMBIN TIME - PATIENT 25.4 SEC (9.8-11.6)
[2017-08-12] MEDS ORDERED: WARFARIN SOD 5 MG TAB PO SCH (16:00)
--- NOTE | 2017-08-12 16:11 | PD.CONS ---
[facility] By Dr. Aleman Reason for Consult medical management. Primary Care Physician No Primary Care Physician Diagnoses: History of Present Illness This is a 56 y/o M with bipolar disorder and recent inpatient hospitalization who was Miller Act. [facility] consulted for medical management. Patient stated only concern is chronic pain in lower back and shoulder. I asked patient what he takes for it he stated percocet. I told patient if he gets pain medication chronically then I will restart medication. He then stated that he gets it from the ER and not chronically. He stated that he he was told by his PCP he has to see pain management. He stated his PCP does not give her any mediation for his pain. Psych nurse technician at the bedside during the interview. All other review of system reviewed and negative. Past Family Social History Allergies: Coded Allergies: morphine (Unverified Allergy, Unknown, STS MAKES HIM SICK, 03/22/17) Past Medical History Hypertension COPD Buerger's disease Severe PAD AAA, according to patient Hepatitis C GERD Depression Past Surgical History Amputation of left hand digits Collapsed lung surgery Reported Medications Reported Meds & Active Scripts Active Trazodone (Trazodone HCl) 50 Mg Tab 50 Mg PO HS PRN Latuda (Lurasidone) 60 Mg Tab 60 Mg PO DAILY Atrovent HFA 12.9 GM Inh (Ipratropium [place]) 17 Mcg/Actuation Aer 2 Puff INH Q6HR PRN Symbicort Inh (Budesonide/Formoterol Fumarate) 160-4.5 Mcg/Act Aero 2 Puff INH Q12HR Folic Acid 1 Mg Tablet 1 Mg PO DAILY Nitroglycerin SL (Nitroglycerin) 0.4 Mg Subl 0.4 Mg SL DIRECTED PRN ONE TABLET UNDER THE TONGUE NEEDED FOR CHEST PAIN, MAY REPEAT EVERY FIVE MINUTES FOR A TOTAL OF 3 DOSES OR CALL 911 IF NO RELIEF Atorvastatin (Atorvastatin Calcium) 20 Mg Tab 20 Mg PO HS Hydrochlorothiazide 12.5 Mg Cap 12.5 Mg PO DAILY Diltiazem ER 24 HR 240 Mg Caper 120 Mg PO DAILY Aspirin 81 Mg Chew 81 Mg CHEW DAILY Warfarin 5 Mg Tab 5 Mg PO DAILY Lisinopril 5 Mg Tab 5 Mg PO DAILY Active Ordered Medications Current Medications Albuterol Sulfate (Proair Hfa Inh) 2 puff Q4HR PRN INH SOB/WHEEZING; Start 08/12 at 08:30 Budesonide/ Formoterol Fumarate (Symbicort 160-4.5 Mcg Inh) 2 puff Q12HR INH ; Start 08/12/17 at 09:00; Stop 08/12/17 at 11:26; Status DC Warfarin Sodium (Coumadin) 5 mg DAILY@1600 PO Last administered on 08/12/17at 16: 20; Start 08/12/17 at 16:00; Stop 08/12/17 at 16:48; Status DC Amoxicillin (Trimox) 500 mg BID PO Last administered on 08/12/17at 11:29; Start 08/12/17 at 10:45; Stop 08/22/17 at 10:44 Lorazepam (Ativan) 1 mg Q6H PRN PO MODERATE TO SEVERE ANXIETY; Start 08/12/17 at 11:00; Stop 08/12/17 at 11:20; Status DC Lorazepam (Ativan Inj) 1 mg Q6H PRN IM MODERATE TO SEVERE ANXIETY; Start at 11:00; Stop 08/12/17 at 11:20; Status DC Acetaminophen (Tylenol) 650 mg Q4H PRN PO Pain 1-5 or Temp >101F Last administered on 08/12/17at 20:41; Start 08/12/17 at 11:00 Magnesium Hydroxide (Milk Of Magnesia Liq) 30 ml DAILY PRN PO CONSTIPATION; Start 08/12/17 at 11:00 Al Hydrox/Mg Hydrox/Simethicone (Mag-Al Plus Susp Liq) 30 ml Q6H PRN PO DYSPEPSIA; Start 08/12/17 at 11:00 Trazodone HCl (Desyrel) 50 mg HS PRN PO INSOMNIA Last administered on 08/12/17at 20:30; Start 08/12/17 at 11:00 Aspirin (Aspirin Chew) 81 mg DAILY CHEW ; Start 08/13/17 at 09:00 Atorvastatin Calcium (Lipitor) 20 mg HS PO Last administered on 08/12/17at 20:29 ; Start 08/12/17 at 21:00 Budesonide/ Formoterol Fumarate (Symbicort 160-4.5 Mcg Inh) 2 puff Q12HR INH ; Start 08/12/17 at 21:00 Diltiazem HCl (Cardizem Cd) 120 mg DAILY PO ; Start 08/13/17 at 09:00 Folic Acid (Folate) 1 mg DAILY PO ; Start 08/13/17 at 09:00 Hydrochlorothiazide (Microzide) 12.5 mg DAILY PO ; Start 08/13/17 at 09:00 Ipratropium [place] (Atrovent Hfa Inh) 2 puff Q6H PRN INH SHORTNESS OF BREATH; Start 08/12/17 at 11:00 Lisinopril (Prinivil) 5 mg DAILY PO ; Start 08/13/17 at 09:00 Lurasidone HCl (Latuda) 60 mg DAILY PO ; Start 08/13/17 at 09:00 Nitroglycerin (Nitrostat Sl) 0.4 mg 5 TIMES A DAY PRN SL CHEST PAIN; Start 08/12 at 11:00 Warfarin Sodium (Coumadin) 5 mg DAILY@1600 PO ; Start 08/13/17 at 16:00 Flumazenil (Romazicon Inj) 0.2 mg Q1M PRN IV PUSH SEE LABEL COMMENTS; Start 08/12/17 at 11:15 Lorazepam (Ativan) 1 mg Q4H PRN PO CIWA 8 - 10 Last administered on 08/12/17at 20 :30; Start 08/12/17 at 11:15 Lorazepam (Ativan Inj) 1 mg Q4H PRN IM CIWA 8 - 10; Start 08/12/17 at 11:15 Lorazepam (Ativan) 2 mg Q2H PRN PO CIWA 11-14; Start 08/12/17 at 11:15 Lorazepam (Ativan Inj) 2 mg Q2H PRN IM CIWA 11-14; Start 08/12/17 at 11:15 Lorazepam (Ativan Inj) 2 mg Q1H PRN IM CIWA 15-20; Start 08/12/17 at 11:15 Lorazepam (Ativan Inj) 2 mg Q15M PRN IV PUSH CIWA > 20; Start 08/12/17 at 11:15 Patient Medication Teaching (Coumadin Booklet) 1 ONCE ONCE OTHER ; Start at 16:00; Stop 08/13/17 at 16:01 Family History Mother with dementia and father with a stroke Social History smoke over 1PPD Denies any alcohol abuse or drug abuse. Physical Exam Vital Signs Vital Signs Date Time Temp Pulse Resp B/P (MAP) Pulse Ox O2 Delivery O2 Flow Rate FiO2 08/12/17 12:51 08/12/17 10:22 108 18 156/84 (108) 100 08/12/17 08:51 99.4 08/12/17 08:35 22 08/12/17 08:32 (119) 08/12/17 06:44 96.2 113 18 173/92 (119) 96 Room Air Physical Exam GENERAL: This is a thin male in no apparent distress. SKIN: No rashes, ecchymoses or lesions. Cool and dry. HEAD: Atraumatic. Normocephalic. No temporal or scalp tenderness. EYES: Pupils equal round and reactive. Extraocular motions intact. No scleral icterus. No injection or drainage. ENT: Nose without bleeding, purulent drainage or septal hematoma. Throat without erythema, tonsillar hypertrophy or exudate. Uvula midline. Airway patent. NECK: Trachea midline. No JVD or lymphadenopathy. Supple, nontender, no meningeal signs. CARDIOVASCULAR: Regular rate and rhythm without murmurs, gallops, or rubs. RESPIRATORY: Clear to auscultation. Breath sounds equal bilaterally. No wheezes , rales, or rhonchi. GASTROINTESTINAL: Abdomen soft, non-tender, nondistended. No hepato-splenomegaly , or palpable masses. No guarding. MUSCULOSKELETAL: left hand amputation NEUROLOGICAL: Awake and alert. Cranial nerves II through XII intact. Motor and sensory grossly within normal limits. Five out of 5 muscle strength in all muscle groups. Normal speech. Laboratory Laboratory Tests Test 08/12/17 11:20 Prothrombin Time 25.4 Prothromb Time International Ratio 2.5 Imaging Last Impressions Chest X-Ray 08/12/17 0858 Signed Impressions: Service Date/Time: Saturday, August 12, 2017 09:06 - CONCLUSION: No acute cardiopulmonary disease. Christopher Butcher MD Assessment and Plan Assessment and Plan 56yo male admitted to inpatient psychiatry for psychosis and asked to be seen in consultation by hospitalist for medical management. Bipolar disorder/MILLER ACT - Management per psychiatric team Hypertension - continue with Diltiazem 120mg daily, Lisinopril 5mg daily, HCTZ 12.5mg daily. chronic back pain -prior hospitalization patient was on roxicodone, but he has not been on medication since discharge. will give tylenol and lidoderm patch. COPD with ongoing tobaccoism - discussed with patient smoking cessation -continue home medication. 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 continue with home regimen. consult pharm to monitor. Hepatitis C, treatment brad ppr Alcohol use on prior admission - Recommend patient follow up with it professional as outpatient.. - History of RPR reactive - RPR reactive with reflex to FTA ABS reactive. consult ID. AAA - incidental finding of 3.8cm abdominal aortic aneurysm - patient f/u with vascular surgeon as outpatient Dyslipidemia - continue home medication. Vitamin D deficiency - continue patient on po vitamin D supplementation Gastritis GERD - PPI DVT prophylaxis - Patient is ambulatory Discussed Condition With patient Estrella Quiroga MD Aug 12, 2017 16:11
[2017-08-12 18:00] VITALS: BP 179/84; PULSE 112; RESP 18; TEMP 98.1; O2SAT 99
[2017-08-12] MEDS: ATORVASTATIN 20 MG TAB PO SCH (20:29)
[2017-08-12] MEDS: traZODone HCL 50 MG TAB PO PRN (20:30)
[2017-08-12] MEDS: ACETAMINOPHEN 325 MG TAB PO PRN (20:41)
[2017-08-12] MEDS: BUDESONIDE-FORMOTEROL 160/4.5 MCG INHALER INH SCH (21:00)
[2017-08-12] MEDS: REMOVE OLD LIDOCAINE PATCH T-DERMAL SCH (22:30)
[2017-08-13 05:44] VITALS: BP 169/82; PULSE 91; RESP 16; TEMP 97.3; O2SAT 95
--- NOTE | 2017-08-13 08:12 | HHI.PR ---
Subjective Remarks Receiving nebs. No wheezing or sob at this time. No fever or chills. No cough. Denies chest pain. No n/v/d/c. Objective Vitals Vital Signs Date Time Temp Pulse Resp B/P (MAP) Pulse Ox O2 Delivery O2 Flow Rate FiO2 08/13/17 05:44 97.3 91 16 169/82 (111) 95 08/12/17 18:00 98.1 112 18 179/84 (115) 99 08/12/17 12:51 08/12/17 10:22 108 18 156/84 (108) 100 08/12/17 08:51 99.4 08/12/17 08:35 22 08/12/17 08:32 (119) I/O 08/12/17 08/12/17 08/12/17 08/13/17 08/13/17 08/13/17 07:00 15:00 23:00 07:00 15:00 23:00 Intake Total 240 ml 240 ml 120 ml Balance 240 ml 240 ml 120 ml Intake Oral 240 ml 240 ml 120 ml # Voids 2 Imaging Last Impressions Chest X-Ray 08/12/17 0892 Signed Impressions: Service Date/Time: Saturday, August 12, 2017 09:06 - CONCLUSION: No acute cardiopulmonary disease. Christopher Butcher MD Objective Remarks GENERAL: This is a thin male in no apparent distress. CARDIOVASCULAR: Regular rate and rhythm without murmurs, gallops, or rubs. RESPIRATORY: Clear to auscultation. Breath sounds equal bilaterally. No wheezes , rales, or rhonchi. GASTROINTESTINAL: Abdomen soft, non-tender, nondistended. No hepato-splenomegaly , or palpable masses. No guarding. MUSCULOSKELETAL: left hand amputation NEUROLOGICAL: Awake and alert. Cranial nerves II through XII intact. Motor and sensory grossly within normal limits. Five out of 5 muscle strength in all muscle groups. Normal speech. A/P Assessment and Plan 56yo male admitted to inpatient psychiatry for psychosis and asked to be seen in consultation by hospitalist for medical management. Bipolar disorder/COE ACT - Management per psychiatric team Hypertension - continue with Diltiazem 120mg daily, Lisinopril 5mg daily, HCTZ 12.5mg daily. chronic back pain -prior hospitalization patient was on roxicodone, but he has not been on medication since discharge. will give tylenol and lidoderm patch. COPD with ongoing tobaccoism - discussed with patient smoking cessation -continue home medication. 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 continue with home regimen. consult pharm to monitor. Hepatitis C, treatment brad ppr Alcohol use on prior admission - Recommend patient follow up with thread separator as outpatient.. - History of RPR reactive - RPR reactive with reflex to FTA ABS reactive. consult ID. AAA - incidental finding of 3.8cm abdominal aortic aneurysm - patient f/u with vascular surgeon as outpatient Dyslipidemia - continue home medication. Vitamin D deficiency - continue patient on po vitamin D supplementation Gastritis GERD - PPI DVT prophylaxis - Patient is ambulatory Discussed Condition With patient, nurse Joann Bacon MD Aug 13, 2017 08:12
[2017-08-13 08:13] LABS: AUTOMATED NEUTROPHIL # 4.5 TH/MM3 (1.8-7.7); BASOPHIL # 0.1 TH/MM3 (0-0.2); EOSINOPHIL % 0.6 % (0.0-4.0); HEMATOCRIT 41.2 % (39.0-51.0); HEMOGLOBIN 14.4 GM/DL (13.0-17.0); LYMPH % 19.9 % (9.0-44.0); LYMPHOCYTE # 1.3 TH/MM3 (1.0-4.8); MEAN CELL VOLUME 93.2 FL (80.0-100.0); MEAN CORPUSCULAR HEMOGLOBIN 32.5 PG (27.0-34.0); MEAN CORPUSCULAR HGB CONC 34.9 % (32.0-36.0); MEAN PLATELET VOLUME 6.9 FL (7.0-11.0); MONOCYTE # 0.7 TH/MM3 (0-0.9); NEUT % 67.5 % (16.0-70.0); PLATELET COUNT 169 TH/MM3 (150-450); RED BLOOD COUNT 4.42 MIL/MM3 (4.50-5.90); RED CELL DISTRIBUTION WIDTH 17.1 % (11.6-17.2); WHITE BLOOD COUNT 6.7 TH/MM3 (4.0-11.0)
[2017-08-13 08:33] LABS: ALBUMIN 2.9 GM/DL (3.4-5.0); AST (GOT) 92 U/L (15-37); BICARBONATE 26.4 MEQ/L (21.0-32.0); BLOOD UREA NITROGEN 7 MG/DL (7-18); CALCIUM 8.7 MG/DL (8.5-10.1); CHLORIDE 102 MEQ/L (98-107); GLOMERULAR FILTRATION RATE 117 ML/MIN (>89); GLUCOSE,RANDOM 95 MG/DL (74-106); SODIUM (NA) 136 MEQ/L (136-145)
[2017-08-13 08:35] LABS: ALT (GPT) 179 U/L (12-78); CHOLESTEROL 177 MG/DL (120-200); TRIGLYCERIDES 98 MG/DL (42-150)
[2017-08-13] MEDS: AMOXICILLIN (TRIHYDRATE) 500 MG CAP PO SCH ×2 (08:42→20:28)
[2017-08-13] MEDS: ACETAMINOPHEN 325 MG TAB PO PRN ×3 (08:42→20:38)
[2017-08-13] MEDS: HYDROCHLOROTHIAZIDE 12.5 MG CAP PO SCH (08:42)
[2017-08-13] MEDS: LURASIDONE 40 MG TAB PO SCH (08:42)
[2017-08-13] MEDS: LISINOPRIL 5 MG TAB PO SCH (08:42)
[2017-08-13] MEDS: FOLIC ACID 1 MG TAB PO SCH (08:43)
[2017-08-13] MEDS: ASPIRIN 81 MG CHEW TAB CHEW SCH (08:43)
[2017-08-13] MEDS: DILTIAZEM-CD 120 MG CAP ER PO SCH (08:43)
[2017-08-13 09:00] LABS: ALKALINE PHOSPHATASE 161 U/L (45-117); CHOLESTEROL/ HDL RATIO 4.48 RATIO; HDL CHOLESTEROL 39.5 MG/DL (40.0-60.0); LDL CHOLESTEROL 118 MG/DL (0-99); TOTAL BILIRUBIN ADULT 0.7 MG/DL (0.2-1.0); TOTAL PROTEIN 6.5 GM/DL (6.4-8.2)
[2017-08-13] MEDS: BUDESONIDE-FORMOTEROL 160/4.5 MCG INHALER INH SCH ×2 (09:32→20:28)
[2017-08-13] MEDS: LIDOCAINE HCL 5% PATCH T-DERMAL SCH (09:32)
[2017-08-13 09:53] LABS: HEMOGLOBIN A1C 5.5 % (4.3-6.0)
--- NOTE | 2017-08-13 13:27 | HHI.PYPN ---
Subjective Remarks Patient sleeping and difficult to arouse. Review of Systems ROS Limitations: Clinical Condition Except as stated in HPI: all other systems reviewed are Neg Mental Status Examination Appearance: Disheveled Consciousness: Alert Orientation: x4 Motor Activity: Normal gait Speech: Hesitant Language: Adequate Fund of Knowledge: Adequate Attention and Concentration: Easily Distracted Memory: Unremarkable Mood: Sad, Anxious Affect: Sad, Anxious Thought Process & Associations: Intact Thought Content: Appropriate Hallucination Type: None Delusion Type: None Suicidal Ideation: Yes Suicidal Plan: Yes Suicidal Intention: No Homicidal Ideation: No Homicidal Plan: No Homicidal Intention: No Insight: Fair Judgment: Impulsive Results Labs Test 08/13/17 07:45 White Blood Count 6.7 TH/MM3 Red Blood Count 4.42 MIL/MM3 Hemoglobin 14.4 GM/DL Hematocrit 41.2 % Mean Corpuscular Volume 93.2 FL Mean Corpuscular Hemoglobin 32.5 PG Mean Corpuscular Hemoglobin Concent 34.9 % Red Cell Distribution Width 17.1 % Platelet Count 169 TH/MM3 Mean Platelet Volume 6.9 FL Neutrophils (%) (Auto) 67.5 % Lymphocytes (%) (Auto) 19.9 % Monocytes (%) (Auto) 11.0 % Eosinophils (%) (Auto) 0.6 % Basophils (%) (Auto) 1.0 % Neutrophils # (Auto) 4.5 TH/MM3 Lymphocytes # (Auto) 1.3 TH/MM3 Monocytes # (Auto) 0.7 TH/MM3 Eosinophils # (Auto) 0.0 TH/MM3 Basophils # (Auto) 0.1 TH/MM3 CBC Comment DIFF FINAL Differential Comment Blood Urea Nitrogen 7 MG/DL Creatinine 0.70 MG/DL Random Glucose 95 MG/DL Total Protein 6.5 GM/DL Albumin 2.9 GM/DL Calcium Level 8.7 MG/DL Alkaline Phosphatase 161 U/L Aspartate Amino Transf (AST/SGOT) 92 U/L Alanine Aminotransferase (ALT/SGPT) 179 U/L Total Bilirubin 0.7 MG/DL Sodium Level 136 MEQ/L Potassium Level 3.6 MEQ/L Chloride Level 102 MEQ/L Carbon Dioxide Level 26.4 MEQ/L Anion Gap 8 MEQ/L Estimat Glomerular Filtration Rate 117 ML/MIN Hemoglobin A1c 5.5 % Triglycerides Level 98 MG/DL Cholesterol Level 177 MG/DL LDL Cholesterol 118 MG/DL HDL Cholesterol 39.5 MG/DL Cholesterol/HDL Ratio 4.48 RATIO Vitamin B12 Level 490 PG/ML 25-Hydroxy Vitamin D Total 29.5 ng/ML Thyroid Stimulating Hormone 3rd Gen 0.487 uIU/ML Vitals/IOs Vital Signs Date Time Temp Pulse Resp B/P (MAP) Pulse Ox O2 Delivery O2 Flow Rate FiO2 08/13/17 09:42 18 08/13/17 05:44 97.3 91 169/82 (111) 95 08/12/17 06:44 Room Air Intake and Output 08/13/17 08/13/17 08/14/17 08:00 16:00 00:00 Intake Total 480 ml 240 ml Balance 480 ml 240 ml Assessment & Plan Problem List: (1) Severe major depression, single episode, without psychotic features ICD Codes: F32.2 - Major depressive disorder, single episode, severe without psychotic features Assessment & Plan Estimated LOS: days. Continue workup established by this physician. Reviewed recent labs. Consider antidepressant management when patient physically more stable, hydrated and fed. Continue to monitor patient's sleep and food intake. Justification for Cont. Inpt. Likely to decompensate physically and emotionally at lower level of care. Ronan Aleman MD Aug 13, 2017 13:27
[2017-08-13] MEDS: WARFARIN SOD 5 MG TAB PO SCH (15:01)
[2017-08-13] MEDS: ATORVASTATIN 20 MG TAB PO SCH (20:28)
[2017-08-13] MEDS: REMOVE OLD LIDOCAINE PATCH T-DERMAL SCH (20:29)
[2017-08-13] MEDS: traZODone HCL 50 MG TAB PO PRN (20:38)
[2017-08-14] MEDS: ACETAMINOPHEN 325 MG TAB PO PRN ×5 (03:44→20:40)
[2017-08-14 06:03] LABS: INTERNATIONAL NORMALIZED RATIO 1.8 RATIO; PROTHROMBIN TIME - PATIENT 18.6 SEC (9.8-11.6)
[2017-08-14 07:08] VITALS: BP 112/81; PULSE 80; RESP 18; TEMP 98.3; O2SAT 97
--- NOTE | 2017-08-14 09:29 | HHI.PR ---
Subjective Remarks NO NEW COMPLAINTS WANTS TO SHOWER TODAY Objective Vitals Vital Signs Date Time Temp Pulse Resp B/P (MAP) Pulse Ox O2 Delivery O2 Flow Rate FiO2 08/14/17 07:08 98.3 80 18 112/81 (91) 97 08/13/17 16:02 18 I/O 08/13/17 08/13/17 08/13/17 08/14/17 08/14/17 08/14/17 07:00 15:00 23:00 07:00 15:00 23:00 Intake Total 120 ml 600 ml 360 ml 360 ml Output Total 400 ml Balance 120 ml 600 ml -40 ml 360 ml Intake Oral 120 ml 600 ml 360 ml 360 ml Output Urine Total 400 ml # Voids 2 2 2 Result Diagram: 08/13/17 0745 08/13/17 0745 Other Results Laboratory Tests Test 08/12/17 11:20 08/13/17 07:45 08/14/17 05:34 Prothrombin Time 25.4 SEC 18.6 SEC Prothromb Time International Ratio 2.5 RATIO 1.8 RATIO White Blood Count 6.7 TH/MM3 Red Blood Count 4.42 MIL/MM3 Hemoglobin 14.4 GM/DL Hematocrit 41.2 % Mean Corpuscular Volume 93.2 FL Mean Corpuscular Hemoglobin 32.5 PG Mean Corpuscular Hemoglobin Concent 34.9 % Red Cell Distribution Width 17.1 % Platelet Count 169 TH/MM3 Mean Platelet Volume 6.9 FL Neutrophils (%) (Auto) 67.5 % Lymphocytes (%) (Auto) 19.9 % Monocytes (%) (Auto) 11.0 % Eosinophils (%) (Auto) 0.6 % Basophils (%) (Auto) 1.0 % Neutrophils # (Auto) 4.5 TH/MM3 Lymphocytes # (Auto) 1.3 TH/MM3 Monocytes # (Auto) 0.7 TH/MM3 Eosinophils # (Auto) 0.0 TH/MM3 Basophils # (Auto) 0.1 TH/MM3 CBC Comment DIFF FINAL Differential Comment Blood Urea Nitrogen 7 MG/DL Creatinine 0.70 MG/DL Random Glucose 95 MG/DL Total Protein 6.5 GM/DL Albumin 2.9 GM/DL Calcium Level 8.7 MG/DL Alkaline Phosphatase 161 U/L Aspartate Amino Transf (AST/SGOT) 92 U/L Alanine Aminotransferase (ALT/SGPT) 179 U/L Total Bilirubin 0.7 MG/DL Sodium Level 136 MEQ/L Potassium Level 3.6 MEQ/L Chloride Level 102 MEQ/L Carbon Dioxide Level 26.4 MEQ/L Anion Gap 8 MEQ/L Estimat Glomerular Filtration Rate 117 ML/MIN Hemoglobin A1c 5.5 % Triglycerides Level 98 MG/DL Cholesterol Level 177 MG/DL LDL Cholesterol 118 MG/DL HDL Cholesterol 39.5 MG/DL Cholesterol/HDL Ratio 4.48 RATIO Vitamin B12 Level 490 PG/ML 25-Hydroxy Vitamin D Total 29.5 ng/ML Thyroid Stimulating Hormone 3rd Gen 0.487 uIU/ML Imaging Last Impressions Chest X-Ray 08/12/17 0858 Signed Impressions: Service Date/Time: Saturday, August 12, 2017 09:06 - CONCLUSION: No acute cardiopulmonary disease. Christopher Butcher MD Objective Remarks GENERAL: AWAKE ALERT TALKATIVE AND COOPERATIVE AT THIS TIME SKIN: Warm and dry. HEAD: Atraumatic. Normocephalic. EYES: Pupils equal and round. No scleral icterus. No injection or drainage. EOMI ENT: No nasal bleeding or discharge. Mucous membranes pink and moist.TONGUE MIDLINE NECK: Trachea midline. No JVD. SUPPLE CARDIOVASCULAR: Regular rate and rhythm. S1, S2 NO S3 OR S4 RESPIRATORY: No accessory muscle use. Clear to auscultation. Breath sounds equal bilaterally. GASTROINTESTINAL: Abdomen soft, non-tender, nondistended. Hepatic and splenic margins not palpable. MUSCULOSKELETAL: Extremities without clubbing, cyanosis, or edema. No obvious deformities. LEFT HAND AMPUTATIONS NEUROLOGICAL: Awake and alert. No obvious cranial nerve deficits. Motor grossly within normal limits. Five out of 5 muscle strength in the arms and legs. Normal speech. PSYCHIATRIC: INAppropriate mood and affect; insight and judgment ABnormal. Medications and IVs Current Medications Albuterol Sulfate (Proair Hfa Inh) 2 puff Q4HR PRN INH SOB/WHEEZING; Start 08/12 at 08:30 Budesonide/ Formoterol Fumarate (Symbicort 160-4.5 Mcg Inh) 2 puff Q12HR INH ; Start 08/12/17 at 09:00; Stop 08/12/17 at 11:26; Status DC Warfarin Sodium (Coumadin) 5 mg DAILY@1600 PO Last administered on 08/12/17at 16: 20; Start 08/12/17 at 16:00; Stop 08/12/17 at 16:48; Status DC Amoxicillin (Trimox) 500 mg BID PO Last administered on 08/13/17 20:28; Start 08/12/17 at 10:45; Stop 08/22/17 at 10:44 Lorazepam (Ativan) 1 mg Q6H PRN PO MODERATE TO SEVERE ANXIETY; Start 08/12/17 at 11:00; Stop 08/12/17 at 11:20; Status DC Lorazepam (Ativan Inj) 1 mg Q6H PRN IM MODERATE TO SEVERE ANXIETY; Start at 11:00; Stop 08/12/17 at 11:20; Status DC Acetaminophen (Tylenol) 650 mg Q4H PRN PO Pain 1-5 or Temp >101F Last administered on 08/14/17 03:44; Start 08/12/17 at 11:00 Magnesium Hydroxide (Milk Of Magnesia Liq) 30 ml DAILY PRN PO CONSTIPATION; Start 08/12/17 at 11:00 Al Hydrox/Mg Hydrox/Simethicone (Mag-Al Plus Susp Liq) 30 ml Q6H PRN PO DYSPEPSIA; Start 08/12/17 at 11:00 Trazodone HCl (Desyrel) 50 mg HS PRN PO INSOMNIA Last administered on 08/13/17 20:38; Start 08/12/17 at 11:00 Aspirin (Aspirin Chew) 81 mg DAILY CHEW Last administered on 08/13/17 08:43; Start 08/13/17 at 09:00 Atorvastatin Calcium (Lipitor) 20 mg HS PO Last administered on 08/13/17 20:28 ; Start 08/12/17 at 21:00 Budesonide/ Formoterol Fumarate (Symbicort 160-4.5 Mcg Inh) 2 puff Q12HR INH Last administered on 08/13/17 20:28; Start 08/12/17 at 21:00 Diltiazem HCl (Cardizem Cd) 120 mg DAILY PO Last administered on 08/13/17 08:43 ; Start 08/13/17 at 09:00 Folic Acid (Folate) 1 mg DAILY PO Last administered on 08/13/17 08:43; Start at 09:00 Hydrochlorothiazide (Microzide) 12.5 mg DAILY PO Last administered on 1/6/18at 08:42; Start 08/13/17 at 09:00 Ipratropium [place] (Atrovent Hfa Inh) 2 puff Q6H PRN INH SHORTNESS OF BREATH; Start 08/12/17 at 11:00 Lisinopril (Prinivil) 5 mg DAILY PO Last administered on 08/13/17at 08:42; Start 08/13/17 at 09:00 Lurasidone HCl (Latuda) 60 mg DAILY PO Last administered on 08/13/17at 08:42; Start 08/13/17 at 09:00 Nitroglycerin (Nitrostat Sl) 0.4 mg 5 TIMES A DAY PRN SL CHEST PAIN; Start 08/12 at 11:00 Warfarin Sodium (Coumadin) 5 mg DAILY@1600 PO Last administered on 08/13/17at 15: 01; Start 08/13/17 at 16:00 Flumazenil (Romazicon Inj) 0.2 mg Q1M PRN IV PUSH SEE LABEL COMMENTS; Start 08/12/17 at 11:15 Lorazepam (Ativan) 1 mg Q4H PRN PO CIWA 8 - 10 Last administered on 08/12/17at 20 :30; Start 08/12/17 at 11:15 Lorazepam (Ativan Inj) 1 mg Q4H PRN IM CIWA 8 - 10; Start 08/12/17 at 11:15 Lorazepam (Ativan) 2 mg Q2H PRN PO CIWA 11-14; Start 08/12/17 at 11:15 Lorazepam (Ativan Inj) 2 mg Q2H PRN IM CIWA 11-14; Start 08/12/17 at 11:15 Lorazepam (Ativan Inj) 2 mg Q1H PRN IM CIWA 15-20; Start 08/12/17 at 11:15 Lorazepam (Ativan Inj) 2 mg Q15M PRN IV PUSH CIWA > 20; Start 08/12/17 at 11:15 Patient Medication Teaching (Coumadin Booklet) 1 ONCE ONCE OTHER Last administered on 08/13/17at 15:01; Start 08/13/17 at 16:00; Stop 08/13/17 at 16:01; Status DC Lidocaine HCl (Lidoderm 5% Patch.12 Hr) 1 patch DAILY T-DERMAL Last administered on 1/6/18at 09:32; Start 08/13/17 at 09:00 Pharmacy Profile Note 0 ml @ 0 mls/hr UNSCH OTHER ; Start 08/12/17 at 22:30 Miscellaneous Information 1 HS T-DERMAL ; Start 08/12/17 at 22:30 A/P Assessment and Plan Assessment and Plan 56yo male admitted to inpatient psychiatry for psychosis and asked to be seen in consultation by hospitalist for medical management. Bipolar disorder/COE ACT - Management per psychiatric team Hypertension - continue with Diltiazem 120mg daily, Lisinopril 5mg daily, HCTZ 12.5mg daily. chronic back pain -prior hospitalization patient was on roxicodone, but he has not been on medication since discharge. will give tylenol and lidoderm patch WAS MY [employer]' S PAIN MANAG[employer] COPD with ongoing tobaccoism - discussed with patient smoking cessation -continue home medication. NEEDS TO STOP WITH HX OF BUERGER'S DISEASE Buerger's disease on chronic anticoagulation with Coumadin with goal INR 2.5-3.0 - INR 2.5. continue with home regimen. consult pharm to monitor. Hepatitis C, treatment brad ppr Alcohol use on prior admission - Recommend patient follow up with model dresser as outpatient.. - History of RPR reactive - RPR reactive with reflex to FTA ABS reactive. consult ID. AAA - incidental finding of 3.8cm abdominal aortic aneurysm - patient f/u with vascular surgeon as outpatient Dyslipidemia - continue home medication. Vitamin D deficiency - continue patient on po vitamin D supplementation Gastritis GERD - PPI DVT prophylaxis - Patient is ambulatory Dayday Dudley DO Aug 14, 2017 09:29
[2017-08-14] MEDS: ASPIRIN 81 MG CHEW TAB CHEW SCH (10:05)
[2017-08-14] MEDS: FOLIC ACID 1 MG TAB PO SCH (10:06)
[2017-08-14] MEDS: DILTIAZEM-CD 120 MG CAP ER PO SCH (10:06)
[2017-08-14] MEDS: HYDROCHLOROTHIAZIDE 12.5 MG CAP PO SCH (10:07)
[2017-08-14] MEDS: AMOXICILLIN (TRIHYDRATE) 500 MG CAP PO SCH ×2 (10:07→20:37)
[2017-08-14] MEDS: LISINOPRIL 5 MG TAB PO SCH (10:07)
[2017-08-14] MEDS: LURASIDONE 40 MG TAB PO SCH (10:08)
[2017-08-14] MEDS: LIDOCAINE HCL 5% PATCH T-DERMAL SCH (10:16)
[2017-08-14] MEDS: BUDESONIDE-FORMOTEROL 160/4.5 MCG INHALER INH SCH ×2 (10:16→20:38)
--- NOTE | 2017-08-14 13:13 | MB ---
cc: CAL JEWELL MD, STEVEN DATE OF CONSULTATION: 08/14/2017 REASON FOR CONSULTATION: Positive syphilis test. HISTORY OF PRESENT ILLNESS This is a 56-year-old white male who is being treated here in the Psychiatric Department at [facility]. The patient was Miller Acted because of suicidal ideation with plan. During the last admission in July, here at [place] the patient had positive test for syphilis with RPR titer of 1:1, and the FTA antibody titer came back reactive. For this reason, Infectious Disease consultation is requested. The patient states that he is okay. He had a positive syphilis test back in 2009 with a titer of 1:32 here at [place]. He tells me that he was treated with penicillin. He tells me he was also treated again a couple of years ago. He notes that at the time when the test was positive here at [place] he did not have any lesion, or any symptoms of syphilis. The patient is afebrile. He has no headache, visual problems or neurologic problems. He is awake, alert, oriented and converses with me logically. He does not recall having any unusual skin lesions. PAST MEDICAL HISTORY: 1. Hypertension. 2. COPD. 3. Buerger's disease. 4. Peripheral arterial disease. 5. Hepatitis C. 6. Gastroesophageal reflux disease. 7. Depression. 8. History of collapsed lung. ALLERGIES: MORPHINE MEDICATIONS: 1. Coumadin. 2. Aspirin. 3. Cardizem. 4. Folate. 5. Hydrochlorothiazide. 6. Prinivil. 7. Latuda. 8. Lipitor. 9. Ativan. 10. Tylenol. 11. Desyrel 12. Amoxicillin. SOCIAL HISTORY Positive alcohol use. No tobacco. Positive substance abuse in the form of crack and methamphetamine. The patient is homeless. FAMILY HISTORY: Noncontributory. REVIEW OF SYSTEMS: Negative except for easy bruising. PHYSICAL EXAMINATION This is a thin, frail-appearing male who is in no acute distress. He is awake and alert and oriented. Vital signs: Temperature 98.3, BP 112/81, respirations 18, heart rate 80. HEENT: Head is atraumatic. Extraocular movements grossly intact, pupils reactive to light. No icterus. Oropharynx: moist mucosa. The patient has blisters and cracking of the oral area in the corner of the lips. Neck: Supple without adenopathy. Lungs: Clear breath sounds. Heart: Regular rate and rhythm without murmurs. Abdomen: Bowel sounds present, soft, nontender. Rectal: Not performed. : Normal genitalia without lesions. Extremities: No clubbing, cyanosis or edema. Multiple areas with superficial bruising of the legs and the forearms. Skin: No diffuse rash. Neuro: No gross focal findings. The patient is alert and oriented. Psychiatric: The patient is calm and cooperative. His thought pattern appears lucid. LABORATORY DATA WBC 6.7, platelets 169, hemoglobin 14.4, estimated GFR 117, AST 92, ALT 179, Alk phos 161. IMPRESSION Positive RPR and FTA antibody test for syphilis in a patient who has been treated approximately seven years ago when the titer was as high as 1:32. The patient without neurologic or ocular signs of syphilis. He notes that he had sexual activity only one time in the past two years and that was about six weeks ago. However, there is no documentation of HIV test having been done on the patient here in the medical records of [place]. RECOMMENDATIONS Obtain HIV testing on this patient. Follow the HIV test and if it is negative, I would not treat him for syphilis since the titer is extremely low and prior treatment was given in the past. If the HIV test is positive, we may want to consider treating him for latent syphilis with IM penicillin. I will order the HIV test. Please reconsult if the HIV test comes back positive, otherwise, I will not be following this patient. Cal Jewell MD FD/GIOVANNA /11:51 AM /12:39 PM
--- NOTE | 2017-08-14 13:56 | EKG ---
Date Performed: 08/13/2017 Time Performed: 12:21:33 PTAGE: 56 years EKG: SINUS TACHYCARDIA WITH OCCASIONAL SUPRAVENTRICULAR PREMATURE COMPLEXES POSSIBLE RIGHT ATRIA L ENLARGEMENT ABNORMAL RHYTHM ECG PREVIOUS TRACING : 07/22/2017 13.28 Since previous tracing, the PACs are new. DOCTOR: Ronan Up Interpretating Date/Time 08/14/2017 13:55:45
[2017-08-14] MEDS: ACYCLOVIR 5% OINT 5 APPLIC/5 GM TUBE TOPICAL SCH ×4 (15:03→20:40)
[2017-08-14] MEDS: WARFARIN SOD 5 MG TAB PO SCH (15:04)
[2017-08-14 18:56] VITALS: BP 136/57; PULSE 98; RESP 18; TEMP 98.2; O2SAT 98
[2017-08-14] MEDS: traZODone HCL 50 MG TAB PO PRN (20:37)
[2017-08-14] MEDS: ATORVASTATIN 20 MG TAB PO SCH (20:38)
[2017-08-14] MEDS: REMOVE OLD LIDOCAINE PATCH T-DERMAL SCH (20:39)
[2017-08-15] MEDS: ACETAMINOPHEN 325 MG TAB PO PRN ×4 (05:27→20:32)
[2017-08-15] MEDS: ACYCLOVIR 5% OINT 5 APPLIC/5 GM TUBE TOPICAL SCH ×5 (05:27→20:05)
[2017-08-15 07:01] LABS: INTERNATIONAL NORMALIZED RATIO 1.6 RATIO; PROTHROMBIN TIME - PATIENT 16.2 SEC (9.8-11.6)
[2017-08-15] MEDS: LISINOPRIL 5 MG TAB PO SCH (10:07)
[2017-08-15] MEDS: LURASIDONE 40 MG TAB PO SCH (10:07)
[2017-08-15] MEDS: HYDROCHLOROTHIAZIDE 12.5 MG CAP PO SCH (10:07)
[2017-08-15] MEDS: FOLIC ACID 1 MG TAB PO SCH (10:07)
[2017-08-15] MEDS: BUDESONIDE-FORMOTEROL 160/4.5 MCG INHALER INH SCH ×2 (10:07→20:05)
[2017-08-15] MEDS: DILTIAZEM-CD 120 MG CAP ER PO SCH (10:07)
[2017-08-15] MEDS: AMOXICILLIN (TRIHYDRATE) 500 MG CAP PO SCH ×2 (10:08→20:05)
[2017-08-15] MEDS: ASPIRIN 81 MG CHEW TAB CHEW SCH (10:08)
[2017-08-15] MEDS: LIDOCAINE HCL 5% PATCH T-DERMAL SCH (10:12)
--- NOTE | 2017-08-15 10:59 | HHI.PYPN ---
Subjective Remarks Patient remains lethargic with diminished energy, hypersomnia but evidencing no withdrawal symptoms. Vital signs reviewed and remainder of laboratory results reviewed. He does not appear to be going through a difficult withdrawal from alcohol or drugs. Review of Systems ROS Limitations: Clinical Condition Except as stated in HPI: all other systems reviewed are Neg Mental Status Examination Appearance: Disheveled Consciousness: Lethargic Orientation: x4 Motor Activity: Normal gait Speech: Hesitant Language: Adequate Fund of Knowledge: Adequate Attention and Concentration: Easily Distracted Memory: Unremarkable Mood: Sad, Anxious Affect: Sad, Anxious Thought Process & Associations: Intact Thought Content: Appropriate Hallucination Type: None Delusion Type: None Suicidal Ideation: Yes Suicidal Plan: Yes Suicidal Intention: No Homicidal Ideation: No Homicidal Plan: No Homicidal Intention: No Insight: Fair Judgment: Impulsive Results Labs Test 08/15/17 06:33 Prothrombin Time 16.2 SEC Prothromb Time International Ratio 1.6 RATIO Vitals/IOs Vital Signs Date Time Temp Pulse Resp B/P (MAP) Pulse Ox O2 Delivery O2 Flow Rate FiO2 08/14/17 18:56 98.2 98 18 136/57 (83) 98 08/12/17 06:44 Room Air Intake and Output 08/15/17 08/15/17 08/16/17 08:00 16:00 00:00 Intake Total 760 ml 240 ml Balance 760 ml 240 ml Assessment & Plan Problem List: (1) Severe major depression, single episode, without psychotic features ICD Codes: F32.2 - Major depressive disorder, single episode, severe without psychotic features Assessment & Plan Estimated LOS: days. Start antidepressant therapy tomorrow. This physician wanted to wait for any physical withdrawal symptoms or autonomic nervous system instability to stabilize prior to starting antidepressant. This appears to be the case so far. Justification for Cont. Inpt. Likely to decompensate at lower level of care. Ronan Aleman MD Aug 15, 2017 10:59
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
--- NOTE | 2017-08-15 12:25 | HHI.PR ---
Subjective Remarks Follow up for Buerger's disease, hypertension. Patient is currently doing well. Denies any acute concerns. However he reports chronic pain. He says he takes Percocet at home. No fever or chills. Objective Vitals Vital Signs Date Time Temp Pulse Resp B/P (MAP) Pulse Ox O2 Delivery O2 Flow Rate FiO2 08/14/17 18:56 98.2 98 18 136/57 (83) 98 I/O 08/14/17 08/14/17 08/14/17 08/15/17 08/15/17 08/15/17 07:00 15:00 23:00 07:00 15:00 23:00 Intake Total 360 ml 960 ml 1600 ml 240 ml Balance 360 ml 960 ml 1600 ml 240 ml Intake Oral 360 ml 960 ml 1600 ml 240 ml # Voids 2 4 Result Diagram: 08/13/17 0745 08/13/17 0745 Imaging Last Impressions Chest X-Ray 08/12/17 0858 Signed Impressions: Service Date/Time: Saturday, August 12, 2017 09:06 - CONCLUSION: No acute cardiopulmonary disease. Christopher Butcher MD Objective Remarks GENERAL: Alert, oriented 3, NAD SKIN: Warm and dry. HEAD: Normocephalic. EYES: No scleral icterus. No injection or drainage. NECK: Supple, trachea midline. No JVD or lymphadenopathy. CARDIOVASCULAR: Regular rate and rhythm without murmurs, gallops, or rubs. RESPIRATORY: Breath sounds equal bilaterally. No accessory muscle use. GASTROINTESTINAL: Abdomen soft, non-tender, nondistended. MUSCULOSKELETAL: No cyanosis, or edema. Left hand amputation BACK: Nontender without obvious deformity. No CVA tenderness. Procedures None A/P Assessment and Plan 56yo male admitted to inpatient psychiatry for psychosis and asked to be seen in consultation by hospitalist for medical management. Bipolar disorder/COE ACT - Management per psychiatric team Hypertension - continue with Diltiazem 120mg daily, Lisinopril 5mg daily, HCTZ 12.5mg daily. chronic back pain -prior hospitalization patient was on Roxicodone, but he has not been on medication since discharge. will give tylenol and lidoderm patch COPD with ongoing tobaccoism - discussed with patient smoking cessation especially given his diagnosis of Buerger's disease - continue home medication. Buerger's disease on chronic anticoagulation with Coumadin with goal INR 2.5-3.0 - INR 1.6. continue with home regimen. Pharmacy consulted for dosage adjustment - There is really no indication to treat with Warfarin for Buerger's disease. However, patient has been on Warfarin for more than 12-15 years. - Patient could not tell me any other indication for warfarin (such as DVT, PE, Afib). - Since he has been on Warfarin for a long time, I would recommend him to discuss with his Vascular surgeon to see if Warfarin can be stopped. Hepatitis C, treatment brad ppr Alcohol use on prior admission - Recommend patient follow up with mine deputy as outpatient.. - History of RPR reactive - RPR reactive with reflex to FTA ABS reactive. - ID consult appreciated. ID recommended no treatment if HIV negative. HIV 1 and 2 screening negative. AAA - incidental finding of 3.8cm abdominal aortic aneurysm - patient f/u with vascular surgeon as outpatient Dyslipidemia - continue home medication. Vitamin D deficiency - continue patient on po vitamin D supplementation Gastritis GERD - PPI DVT prophylaxis - Patient is ambulatory Patient can be discharged from medical standpoint. Fabiano Wilkerson DO Aug 15, 2017 12:24 pm
[2017-08-15] MEDS ORDERED: WARFARIN SOD 1 MG TAB PO ONE (16:00)
[2017-08-15] MEDS: WARFARIN SOD 5 MG TAB PO SCH (16:13)
--- NOTE | 2017-08-15 17:02 | PD.TTN ---
Patient Problems 1. Discharge planning 2. Medication compliance 3. Knowledge deficit 4. Lack of coping skills Progress Toward Goals Provider Present: Dr. Phi Cueva Provider Input: 08/15/2017; patient is bieng monitor and assess for medication needs and behavior change; Nurse(s) Present: RN Nurse(s) Input: 08/15/2017; Patient is eating meals and taking his medication Psychiatric Counselors Present: TYREL Manriquez Psych Therapist Input: 08/15/2017; counselor has provided patient with a substance package as well as offerred inpatient program Group Spec/RT/OT/SCOTT Present: Abdias Cross OT Group Spec/RT/OT/SCOTT Input: 08/15/2017; patient has refused to participate with inpatient groups Documentation Scribe: TYREL Manriquez Sandra LMHC Aug 15, 2017 17:02
[2017-08-15] MEDS: ALBUTEROL SULFATE 90 MCG/ACT HFA 8 GM INHALER INH PRN (17:21)
[2017-08-15 18:00] VITALS: BP 142/69; PULSE 99; RESP 18; TEMP 97.7; O2SAT 100
[2017-08-15] MEDS: ATORVASTATIN 20 MG TAB PO SCH (20:05)
[2017-08-15] MEDS: traZODone HCL 50 MG TAB PO PRN (20:05)
[2017-08-15] MEDS: REMOVE OLD LIDOCAINE PATCH T-DERMAL SCH (20:06)
[2017-08-16] MEDS: ACYCLOVIR 5% OINT 5 APPLIC/5 GM TUBE TOPICAL SCH ×2 (05:07→09:39)
[2017-08-16 06:28] VITALS: BP 100/70; PULSE 115; RESP 17; TEMP 97.9; O2SAT 99
[2017-08-16 07:36] LABS: INTERNATIONAL NORMALIZED RATIO 1.5 RATIO; PROTHROMBIN TIME - PATIENT 15.1 SEC (9.8-11.6)
[2017-08-16] MEDS ORDERED: REMOVE OLD PATCH T-DERMAL SCH (09:00)
[2017-08-16] MEDS ORDERED: NICOTINE 14 MG/24 HR PATCH T-DERMAL SCH (09:00)
[2017-08-16] MEDS: ASPIRIN 81 MG CHEW TAB CHEW SCH (09:36)
[2017-08-16] MEDS: AMOXICILLIN (TRIHYDRATE) 500 MG CAP PO SCH (09:36)
[2017-08-16] MEDS: LISINOPRIL 5 MG TAB PO SCH (09:36)
[2017-08-16] MEDS: HYDROCHLOROTHIAZIDE 12.5 MG CAP PO SCH (09:36)
[2017-08-16] MEDS: DILTIAZEM-CD 120 MG CAP ER PO SCH (09:37)
[2017-08-16] MEDS: FOLIC ACID 1 MG TAB PO SCH (09:37)
[2017-08-16] MEDS: BUDESONIDE-FORMOTEROL 160/4.5 MCG INHALER INH SCH (09:37)
[2017-08-16] MEDS: LIDOCAINE HCL 5% PATCH T-DERMAL SCH (09:38)
[2017-08-16] MEDS: REMOVE OLD LIDOCAINE PATCH T-DERMAL SCH (09:38)
[2017-08-16] MEDS: LURASIDONE 40 MG TAB PO SCH (09:39)
[2017-08-16] MEDS ORDERED: ATOR20TA15 PO (09:50)
[2017-08-16] MEDS ORDERED: LISI-519 PO (09:50)
[2017-08-16] MEDS ORDERED: LURA1TAB2 PO (09:50)
[2017-08-16] MEDS ORDERED: DILT120C7 PO (09:50)
[2017-08-16] MEDS ORDERED: HYDR12.57 PO (09:50)
[2017-08-16] MEDS ORDERED: ASPI-516 CHEW (09:50)
[2017-08-16] MEDS ORDERED: WARF-23 PO (09:50)
[2017-08-16] MEDS ORDERED: ACYCLOVIR 5% TOPICAL (09:58)
--- NOTE | 2017-08-16 10:01 | HHI.DS ---
Psychiatry Discharge Summary Inpatient Psychiatric care?: Yes Advance Directive: No Reason Not Provided: DOES NOT HAVE Mental Health AdvanceDirective: No Health Care Proxy: No Admission Admission Date Aug 12, 2017 at 11:00 Admission Diagnosis: (1) Severe major depression, single episode, without psychotic features ICD Code: F32.2 - Major depressive disorder, single episode, severe without psychotic features Brief History 56-year-old male with numerous medical issues, presents under a Miller act due to suicidal ideation with plan. Patient was transferred here from [facility] after he told their staff he would "lay down and ". The patient continues to have suicidal ideation with plan of lying down in the street, being run over by a car, etc. Apparently this was precipitated by the patient being kicked out of his residence his roommate. The patient describes multiple symptoms of depression including depressed mood, anhedonia, anxiety, feelings of hopelessness and helplessness, suicidal ideation with plan, diminished energy, diminished concentration, sleep disturbance, appetite loss, social withdrawal, etc. The patient has a number of medical issues including hypertension, cardiovascular disease, the amputation of one hand, COPD, and he takes blood thinners. He admits to being noncompliant with his medications recently, both psychotropic and nonpsychotropic medicines. He also admits to smoking one pack of cigarettes per day and drinking approximately a 12 pack of beer per day. Tobacco Use In Past 30 Days: 5 or More Cigarettes/Day Alcohol Use: 4 or More Times Per Week Hospital Course Patient is a 56-year-old man with a self-reported diagnosis of bipolar disorder and schizophrenia, with multiple prior psychiatric consultations, reports several suicide attempts in the past last time one year ago via cutting, no self-injurious behavior, with significant alcohol use disorder which she has been reporting tricking 12 beers per day, history of noncompliance, unemployed on SSI was brought in the Miller act for suicidal ideation with plan to lay down the road to get run over in the context of recently being kicked out of his roommates home and now being homeless which patient was admitted to the inpatient psychiatry for further evaluation and management. Patient was continued on lurasidone 60mg PO daily, remained on CIWA protocol for alcohol withdrawal which patient did not have clinical signs of. Patient was managed by medical team for ongoing medical issues while on the unit. Patient was noted to have felt depressed with SI initially but after having him restarted on treatment had improvement of mood, stable mood and no longer endorsing any suicidal ideation. Patient noted to have stable mood throughout admission, noted to have adequate self hygiene maintenance with no behavioral disturbances. Upon discharge patient stated feeling good, stated wanting to continue to improve and it is future oriented with plans on going to sober living facility when he receives funds from his SSI but in the interim will engage in outpatient rehab and stay with a friend. He reports planning on continuing treatment and attend outpatient follow up appointments for continuity of care. Patient will require follow up with his outpatient medical provider for chronic medical issues, vascular surgeon for AAA and anticoagulation therapy, infectious disease for management of reactive RPR. Patient will be discharged to [facility] residence to continue substance rehabilitation. Patient; denies SI, HI, AVH or delusions. Supportive psychotherapy provided. Patient advised to call 911 or return back to the ED in case of any emergency. Patient agrees with plan Results Blood Pressure 100 / 70 Vital Signs Date Time Temp Pulse Resp B/P (MAP) Pulse Ox O2 Delivery O2 Flow Rate FiO2 08/16/17 06:28 97.9 115 17 100/70 (80) 99 Laboratory Tests Test 08/14/17 05:34 08/15/17 06:33 08/16/17 06:59 Prothrombin Time 18.6 SEC (9.8-11.6) 16.2 SEC (9.8-11.6) 15.1 SEC (9.8-11.6) Laboratory Results Test 08/13/17 07:45 Cholesterol Level 177 MG/DL (120-200) HDL Cholesterol 39.5 MG/DL (40.0-60.0) Hemoglobin A1c 5.5 % (4.3-6.0) LDL Cholesterol 118 MG/DL (0-99) Triglycerides Level 98 MG/DL (42-150) Summary of Procedures None Imaging Last Impressions Chest X-Ray 08/12/17 0859 Signed Impressions: Service Date/Time: Saturday, August 12, 2017 09:06 - CONCLUSION: No acute cardiopulmonary disease. Christopher Butcher MD Pending results at discharge: No Medications # of Antipsychotic meds at D/C: 1 Approp Antipsych med options 1 - Minimum of three failed multiple trials of monotherapy. 2 - Documented plan to taper to monotherapy due to previous use of multiple meds OR cross-taper in progress at D/C. 3 - Documentation of augmentation of Clozapine. 4 - Justification other than those listed in allowable values 1-3, document here : Discharge Discharge Date: Aug 16, 2017 Discharge Diagnosis: (1) Severe major depression, single episode, without psychotic features ICD Code: F32.2 - Major depressive disorder, single episode, severe without psychotic features Pt Condition on Discharge: Stable Discharge Disposition: Discharge Home Discharge Instructions Diet Instructions: Heart Healthy Diet, Coumadin (Warfarin) Diet Discharge Time > 30 minutes Mental Status Examination Appearance: Appropriate Consciousness: Alert Orientation: x4 Motor Activity: Normal gait Speech: Unremarkable Language: Adequate Fund of Knowledge: Adequate Attention and Concentration: Easily Distracted Memory: Unremarkable Mood: Appropriate Affect: Appropriate, Anxious Thought Process & Associations: Intact Thought Content: Appropriate Hallucination Type: None Delusion Type: None Suicidal Ideation: No Suicidal Plan: No Suicidal Intention: No Homicidal Ideation: No Homicidal Plan: No Homicidal Intention: No Insight: Fair Judgment: Impulsive Discharge/Advance Care Plan Health Problems: (1) Severe major depression, single episode, without psychotic features Goals to promote your health * To prevent worsening of your condition and complications * To maintain your health at the optimal level Directions to meet your goals Take your medications as prescribed Follow your dietary instruction Follow activity as directed Keep your appointments as scheduled Take your immunizations and boosters as scheduled If your symptoms worsen call your PCP, if no PCP go to Urgent Care Center or Emergency Room For 24/ questions related to your inpatient stay or results of tests pending at discharge, please contact Dr. Lloyd Cueva at Smoking is Dangerous to Your Health. Avoid second hand smoking Lloyd Cueva MD Aug 16, 2017 10:01
--- NOTE | 2017-08-16 11:49 | HHI.PR ---
Subjective Remarks Patient is currently doing well. No acute concerns. He is being discharged today. Encouraged patient to discuss with his vascular surgeon regarding anti- coagulation. Objective Vitals Vital Signs Date Time Temp Pulse Resp B/P (MAP) Pulse Ox O2 Delivery O2 Flow Rate FiO2 08/16/17 06:28 97.9 115 17 100/70 (80) 99 08/15/17 18:00 97.7 99 18 142/69 (93) 100 I/O 08/15/17 08/15/17 08/15/17 08/16/17 08/16/17 08/16/17 06:59 14:59 22:59 06:59 14:59 22:59 Intake Total 1600 ml 720 ml 720 ml 960 ml 120 ml Balance 1600 ml 720 ml 720 ml 960 ml 120 ml Intake Oral 1600 ml 720 ml 720 ml 960 ml 120 ml # Voids 4 2 3 Result Diagram: 08/13/17 0745 08/13/17 0745 Objective Remarks GENERAL: Alert, oriented 3, NAD SKIN: Warm and dry. HEAD: Normocephalic. EYES: No scleral icterus. No injection or drainage. NECK: Supple, trachea midline. No JVD or lymphadenopathy. CARDIOVASCULAR: Regular rate and rhythm without murmurs, gallops, or rubs. RESPIRATORY: Breath sounds equal bilaterally. No accessory muscle use. GASTROINTESTINAL: Abdomen soft, non-tender, nondistended. MUSCULOSKELETAL: No cyanosis, or edema. Left hand amputation BACK: Nontender without obvious deformity. No CVA tenderness. Procedures None A/P Assessment and Plan 56yo male admitted to inpatient psychiatry for psychosis and asked to be seen in consultation by hospitalist for medical management. Bipolar disorder/COE ACT - Management per psychiatric team Hypertension - continue with Diltiazem 120mg daily, Lisinopril 5mg daily, HCTZ 12.5mg daily. chronic back pain -prior hospitalization patient was on Roxicodone, but he has not been on medication since discharge. will give tylenol and lidoderm patch COPD with ongoing tobaccoism - discussed with patient smoking cessation especially given his diagnosis of Buerger's disease - continue home medication. Buerger's disease on chronic anticoagulation with Coumadin with goal INR 2.5-3.0 - INR 1.6. continue with home regimen. Pharmacy consulted for dosage adjustment - Apparently he has had multiple thromboembolism which is why he is on Warfarin. Hepatitis C, treatment brad ppr Alcohol use on prior admission - Recommend patient follow up with drivers license examiner as outpatient.. - History of RPR reactive - RPR reactive with reflex to FTA ABS reactive. - ID consult appreciated. ID recommended no treatment if HIV negative. HIV 1 and 2 screening negative. AAA - incidental finding of 3.8cm abdominal aortic aneurysm - patient f/u with vascular surgeon as outpatient Dyslipidemia - continue home medication. Vitamin D deficiency - continue patient on po vitamin D supplementation Gastritis GERD - PPI DVT prophylaxis - Patient is ambulatory Patient can be discharged from medical standpoint. Fabiano Wilkerson DO Aug 16, 2017 11:49
[2017-08-16] MEDS ORDERED: WARFARIN SOD 1 MG TAB PO ONE (16:00)
== END 2017-08-16 11:30 | disposition home or self-care (01) | DRG 885 ==
LOC: NEPJ 06:25 → NEDA 11:00 → H4EA 12:25
PROVIDERS: ADMIT Student in an Organized Health Care Education/Training Program; ATTEND Student in an Organized Health Care Education/Training Program
DX: F32.2 Major depressive disorder, single episode, severe without psychotic features (principal); I73.1 Thromboangiitis obliterans [Buerger's disease]; R45.851 Suicidal ideations; A53.0 Latent syphilis, unspecified as early or late; I10 Essential (primary) hypertension; J44.9 Chronic obstructive pulmonary disease, unspecified; K21.9 Gastro-esophageal reflux disease without esophagitis; J32.9 Chronic sinusitis, unspecified; E78.00 Pure hypercholesterolemia, unspecified; I73.9 Peripheral vascular disease, unspecified; I71.4 Abdominal aortic aneurysm, without rupture; B19.20 Unspecified viral hepatitis C without hepatic coma; E78.5 Hyperlipidemia, unspecified; E55.9 Vitamin D deficiency, unspecified; K29.70 Gastritis, unspecified, without bleeding; G89.29 Other chronic pain; M54.5 Low back pain; H91.93 Unspecified hearing loss, bilateral; G47.10 Hypersomnia, unspecified; F10.10 Alcohol abuse, uncomplicated; F41.9 Anxiety disorder, unspecified; F17.210 Nicotine dependence, cigarettes, uncomplicated; Y90.8 Blood alcohol level of 240 mg/100 ml or more; Z59.0 Homelessness; Z79.01 Long term (current) use of anticoagulants; Z81.8 Family history of other mental and behavioral disorders; Z88.5 Allergy status to narcotic agent; Z89.112 Acquired absence of left hand; Z91.14 Patient's other noncompliance with medication regimen
CPT/HCPCS: 71045; 80053; 80061; 82306; 82607; 83036; 84443; 85025; 85610; 86703; 93005; 99285

== ENCOUNTER 2017-09-05 06:00 | Inpatient (IN) | payer MEDICAID ==
[~2017-09-05] VITALS: Ht 165.1 cm; Wt 56.7 kg
[~2017-09-05 06:00] MED LIST changes: +ACYCLOVIR 5% TOPICAL; -DILT-48 PO; +DILT120C7 PO; -OXYC1CAP PO
[2017-09-05 06:12] VITALS: BP 187/91; PULSE 101; RESP 18; TEMP 98.2; O2SAT 100
[2017-09-05 06:50] LABS: AUTOMATED NEUTROPHIL # 10.1 TH/MM3 (1.8-7.7); BASOPHIL # 0.1 TH/MM3 (0-0.2); BASOPHIL % 0.5 % (0.0-2.0); EOSINOPHIL % 0.2 % (0.0-4.0); HEMATOCRIT 42.4 % (39.0-51.0); HEMOGLOBIN 14.4 GM/DL (13.0-17.0); LYMPH % 18.8 % (9.0-44.0); LYMPHOCYTE # 2.5 TH/MM3 (1.0-4.8); MEAN CELL VOLUME 94.1 FL (80.0-100.0); MEAN CORPUSCULAR HEMOGLOBIN 32.1 PG (27.0-34.0); MEAN CORPUSCULAR HGB CONC 34.1 % (32.0-36.0); MEAN PLATELET VOLUME 6.9 FL (7.0-11.0); MONO % 4.9 % (0.0-8.0); MONOCYTE # 0.7 TH/MM3 (0-0.9); NEUT % 75.6 % (16.0-70.0); PLATELET COUNT 187 TH/MM3 (150-450); RED CELL DISTRIBUTION WIDTH 17.8 % (11.6-17.2); WHITE BLOOD COUNT 13.4 TH/MM3 (4.0-11.0)
[2017-09-05 07:02] LABS: INTERNATIONAL NORMALIZED RATIO 1.3 RATIO; PROTHROMBIN TIME - PATIENT 13.3 SEC (9.8-11.6)
--- NOTE | 2017-09-05 07:04 | PD ---
HPI Chief Complaint: Psychiatric Symptoms Time Seen by Provider: 06:56 Travel History International Travel<30 days: No Contact w/Intl Traveler<30days: No Traveled to known affect area: No History of Present Illness HPI 56-year-old white male presents to emergency department under Miller act by PD. The patient had notified police that he was feeling depressed and suicidal. He has a history of depression and Buerger's disease. He is on Coumadin long- term. He was referred from [facility] to [place] for his evaluation today due to his long-term anticoagulation therapy. The patient states that he had pain all whole month's rent to a friend to stay but he only stayed a few days before his friend kicked him out. He's been living in a tent for the last few weeks. Patient states it is cold out and has been raining. Patient has no current plan on self-harm. He also reports being treated in the last 4 days at [facility] for bronchitis and COPD. He is currently taken steroids, inhalers and has one more day left of Zithromax. Positive cough, congestion. No fever chills. Still smoking. He denies any homicidal ideation. No toxic ingestions. PFSH Past Medical History Arthritis: No Asthma: Yes Autoimmune Disease: No Blood Disorders: Yes (CLOTTING DISORDERS) Bipolar Disorder: Yes Anxiety: Yes Depression: Yes Heart Rhythm Problems: No Cancer: No Cardiovascular Problems: Yes High Cholesterol: Yes Chemotherapy: No Chest Pain: No Congestive Heart Failure: No COPD: Yes Cerebrovascular Accident: No Diabetes: No Diminished Hearing: Yes (PT STS BILATERAL) Endocrine: No Gastrointestinal Disorders: Yes (RECENT GASTRITIS) GERD: Yes Glaucoma: No Genitourinary: No Headaches: No Hepatitis: No Hiatal Hernia: No Heparin Induced Thrombocytopen: No Hypertension: Yes Immune Disorder: No Implanted Vascular Access Dvce: No Kidney Stones: No Musculoskeletal: Yes Neurologic: No Psychiatric: Yes (Schizoaffective Disorder, Depressive Type) Reproductive: No Respiratory: Yes (STS HAD A COLLAPSED LUNG REPAIRED.) Immunizations Current: Yes Migraines: No Myocardial Infarction: No Radiation Therapy: No Renal Failure: No Schizophrenia: Yes Seizures: No Sickle Cell Disease: No Sleep Apnea: No Thyroid Disease: No Triglycerides - High: Yes Ulcer: Yes Tetanus Vaccination: Unknown Influenza Vaccination: Yes Past Surgical History Abdominal Surgery: No AICD: No Appendectomy: No Arteriovenous Shunt: No Cholecystectomy: No Ear Surgery: No Endocrine Surgery: No Eye Surgery: No Genitourinary Surgery: No Gynecologic Surgery: No Insulin Pump: No Joint Replacement: No Neurologic Surgery: No Oral Surgery: No Pacemaker: No Thoracic Surgery: Yes (STS HAD A COLLAPSED LUNG) Other Surgery: Yes (AMPUTATION OF FINGERS OF LEFT HAND) Social History Alcohol Use: Yes (few times a week) Tobacco Use: Yes (quit 07/20/17) Substance Use: Yes (CRACK, METH) Allergies-Medications (Allergen,Severity, Reaction): Coded Allergies: morphine (Unverified Allergy, Unknown, STS MAKES HIM SICK, 09/05/17) Reported Meds & Prescriptions Reported Meds & Active Scripts Active [Acyclovir 5% Oint (5 Gm)] 5 APPLIC/5 GM Oint 1 Applic TOPICAL 5 TIMES A DAY 30 Days Latuda (Lurasidone) 60 Mg Tab 60 Mg PO DAILY 30 Days Atorvastatin (Atorvastatin Calcium) 20 Mg Tab 20 Mg PO HS 30 Days Hydrochlorothiazide 12.5 Mg Cap 12.5 Mg PO DAILY 30 Days Diltiazem ER 24 HR (Diltiazem HCl) 120 Mg Caper 120 Mg PO DAILY 30 Days Aspirin 81 Mg Chew 81 Mg CHEW DAILY 30 Days Warfarin 5 Mg Tab 5 Mg PO DAILY 30 Days Lisinopril 5 Mg Tab 5 Mg PO DAILY 30 Days Trazodone (Trazodone HCl) 50 Mg Tab 50 Mg PO HS PRN Atrovent HFA 12.9 GM Inh (Ipratropium [place]) 17 Mcg/Actuation Aer 2 Puff INH Q6HR PRN Symbicort Inh (Budesonide/Formoterol Fumarate) 160-4.5 Mcg/Act Aero 2 Puff INH Q12HR Folic Acid 1 Mg Tablet 1 Mg PO DAILY Nitroglycerin SL (Nitroglycerin) 0.4 Mg Subl 0.4 Mg SL DIRECTED PRN ONE TABLET UNDER THE TONGUE NEEDED FOR CHEST PAIN, MAY REPEAT EVERY FIVE MINUTES FOR A TOTAL OF 3 DOSES OR CALL 911 IF NO RELIEF Review of Systems General / Constitutional: No: Fever Eyes: No: Visual changes HENT: No: Headaches Cardiovascular: No: Chest Pain or Discomfort Respiratory: Positive: Cough, Shortness of Breath, Wheezing Gastrointestinal: No: Abdominal Pain Genitourinary: No: Dysuria Musculoskeletal: Positive: Arthralgias, Pain Skin: No Rash Neurologic: No: Weakness Psychiatric: No: Depression Endocrine: No: Polydipsia Hematologic/Lymphatic: No: Easy Bruising Physical Exam Narrative GENERAL: Well-nourished, well-developed patient. SKIN: Warm and dry. HEAD: Normocephalic and atraumatic. EYES: No scleral icterus. No injection or drainage. ENT: No nasal drainage noted. Mucous membranes pink. Airway patent. NECK: Supple, trachea midline. Moves head freely without obvious discomfort. CARDIOVASCULAR: Regular rate and rhythm without murmurs, gallops, or rubs. RESPIRATORY: Breath sounds equal bilaterally. No accessory muscle use. GASTROINTESTINAL: Abdomen soft, non-tender, nondistended. EXTREMITIES: No cyanosis or edema. Patient has amputations of the digits of the left hand and has a stump. The right hand has arthritic changes. BACK: Nontender without obvious deformity. No CVA tenderness. NEURO: Patient is alert and oriented. no sensorimotor deficits. Nonfocal. Normal speech. PSYCH: No delusions. No auditory or visual hallucinations. Data Data Last Documented VS Vital Signs Date Time Temp Pulse Resp B/P (MAP) Pulse Ox O2 Delivery O2 Flow Rate FiO2 09/05/17 06:12 98.2 101 18 187/91 (123) 100 Orders Orders Complete Blood Count With Diff (09/05/17 06:16) Comprehensive Metabolic Panel (09/05/17 06:16) Thyroid Stimulating Hormone (09/05/17 06:16) Psych Screen (09/05/17 06:16) Drug Screen, Random Urine (09/05/17 06:16) Alcohol (Ethanol) (09/05/17 06:16) Prothrombin Time / Inr (Pt) (09/05/17 06:16) Labs Laboratory Tests Test 09/05/17 06:25 White Blood Count 13.4 TH/MM3 Red Blood Count 4.50 MIL/MM3 Hemoglobin 14.4 GM/DL Hematocrit 42.4 % Mean Corpuscular Volume 94.1 FL Mean Corpuscular Hemoglobin 32.1 PG Mean Corpuscular Hemoglobin Concent 34.1 % Red Cell Distribution Width 17.8 % Platelet Count 187 TH/MM3 Mean Platelet Volume 6.9 FL Neutrophils (%) (Auto) 75.6 % Lymphocytes (%) (Auto) 18.8 % Monocytes (%) (Auto) 4.9 % Eosinophils (%) (Auto) 0.2 % Basophils (%) (Auto) 0.5 % Neutrophils # (Auto) 10.1 TH/MM3 Lymphocytes # (Auto) 2.5 TH/MM3 Monocytes # (Auto) 0.7 TH/MM3 Eosinophils # (Auto) 0.0 TH/MM3 Basophils # (Auto) 0.1 TH/MM3 CBC Comment DIFF FINAL Differential Comment Prothrombin Time 13.3 SEC Prothromb Time International Ratio 1.3 RATIO MDM Medical Decision Making Medical Screen Exam Complete: Yes Emergency Medical Condition: Yes Medical Record Reviewed: Yes Differential Diagnosis MDM: High Differential diagnoses: Schizophrenia, schizoaffective disorder, bipolar, anxiety, depression, adjustment reaction, mood disorder NOS, ODD, depressive disorder NOS, dementia, dementia with agitation, psychosis NOS, substance induced mood disorder, DMDD, Asperger syndrome, infection,electrolyte abnormality, malingering. Narrative Course Mental health screening discussed with the patient. Psychiatric screen ordered. The patient's been medically cleared. This medical clearance for psychiatric admission Diagnosis Primary Impression: Medical clearance for psychiatric admission Condition: Stable Jeremias Qureshi Sep 05, 2017 07:04
[2017-09-05 07:23] LABS: ALKALINE PHOSPHATASE 191 U/L (45-117); ALT (GPT) 446 U/L (12-78); AST (GOT) 334 U/L (15-37); BICARBONATE 23.6 MEQ/L (21.0-32.0); BLOOD UREA NITROGEN 5 MG/DL (7-18); CALCIUM 8.7 MG/DL (8.5-10.1); CHLORIDE 103 MEQ/L (98-107); CREATININE 0.78 MG/DL (0.60-1.30); GLOMERULAR FILTRATION RATE 103 ML/MIN (>89); GLUCOSE,RANDOM 107 MG/DL (74-106); SODIUM (NA) 138 MEQ/L (136-145); TOTAL BILIRUBIN ADULT 0.8 MG/DL (0.2-1.0); TOTAL PROTEIN 7.4 GM/DL (6.4-8.2)
[2017-09-05] MEDS ORDERED: POTASSIUM CHLORIDE 10 MEQ CONTROLLED RELEASE TAB PO ONE (07:45)
[2017-09-05] MEDS ORDERED: ZOLO50TA PO (08:24)
[2017-09-05] MEDS ORDERED: WARF-21 PO (08:24)
[2017-09-05] MEDS ORDERED: PRED10PA PO (08:24)
[2017-09-05] MEDS ORDERED: NAPR500T2 PO (08:24)
[2017-09-05] MEDS ORDERED: ZITHTAB2 PO (08:24)
[2017-09-05] MEDS ORDERED: IBUP-232 PO (08:24)
[2017-09-05] MEDS ORDERED: TRAZ100T10 PO (08:24)
[2017-09-05] MEDS ORDERED: SPIRCAP INH (08:26)
[2017-09-05] MEDS ORDERED: ALBUAER3 INH (08:26)
[2017-09-05 08:32] VITALS: BP 167/89; PULSE 100; RESP 18; TEMP 98.3; O2SAT 97
--- NOTE | 2017-09-05 14:28 | HHI.HP ---
Provisional Diagnosis Admission Date [place]. Adjustment disorder with depressed mood Certification of Person's Competence To Provide Express and Informed Consent I have personally examined Raheel Tamez , a person being served at [facility] on, Sep 05, 2017 14:24. Express and informed consent means consent voluntarily given in writing, by a competent person, after sufficient explanation and disclosure of the subject matter involved to enable the person to make a knowing and willful decision without any element of force, fraud, deceit, duress, or other form of constraint or coercion. This person is 18 years of age or older, is not now known to be incompetent to consent to treatment with a guardian advocate, and does not have a health care surrogate or proxy currently making medical treatment decisions. I have found this person to be one of the following: [x] Competent to provide express and informed consent, as defined above, for voluntary admission to this facility and is competent to provide express and informed consent for treatment. He/she has the consistent capacity to make well reasoned, willful, and knowing decisions concerning his or her medical or mental health treatment. The person fully and consistently understands the purpose of the admission for examination/placement and is fully capable of personally exercising all rights [place] Incompetent to provide express and informed consent to voluntary admission, and this is incompetent to provide express and informed consent to treatment. The person must be transferred to involuntary status and a petition for a guardian advocate filed with the Circuit Court. [] Refusing to provide express and informed consent to voluntary admission but is competent to provide express and informed consent for treatment. The person must be discharged or transferred to involuntary status. Form shall be completed within 24 hours of a person's arrival at the receiving facility and filed in the clinical record of each person: 1. Admitted on a voluntary basis 2. Permitted to provide express and informed consent to his/her own treatment 3. Allowed to transfer from involuntary to voluntary status 4. Prior to permitting a person to consent to his or her own treatment after having been previously found incompetent to consent to treatment. History of Present Illness Capacity: Has Capacity HPI 56-year-old male presents under a Miller act for depressive symptoms and suicidality. Patient has a history of Buerger's disease and he is on anticoagulation therapy chronically. He has been living in a tent, in the cold and raining over the last several days as he reportedly gave a friend one month' s rent and the friend kicked him out after a few days. The patient reports multiple symptoms of depression and suicidality, with plan to overdose. His depressive symptoms include depressed mood, anhedonia, anxiety, initial and middle insomnia, diminished energy, feelings of hopelessness and helplessness, decreased self-esteem, poor concentration and suicidal thoughts with plan to overdose on his multiple medicines. His toxicology screen is positive for alcohol but no drugs. He is unable to contract for safety at this time. In addition to his Buerger's disease, he also has COPD. Review of Systems Psychiatric: COMPLAINS OF: Depression, Suicidal Ideation Past Psych History Psychological trauma history Denied Violence risk - others (6 mos) Minimal to moderate Violence risk - self (6 mos) High Substance Abuse History Drugs/Alcohol past 12 months History of alcohol abuse. Past Family Social History Coded Allergies: morphine (Unverified Allergy, Unknown, STS MAKES HIM SICK, 09/05/17) Active Scripts [Acyclovir 5% Oint (5 Gm)] 5 APPLIC/5 GM OINT No Conflict Check, 1 APPLIC TOPICAL 5 TIMES A DAY for health for 30 Days, #1 TUBE Prov:Lloyd Cueva MD 08/16/17 Lurasidone (Latuda) 60 Mg Tab, 60 MG PO DAILY for health for 30 Days, #30 TAB 0 Refills Prov:Lloyd Cueva MD 08/16/17 Atorvastatin (Atorvastatin) 20 Mg Tab, 20 MG PO HS for Cholesterol Management for 30 Days, #30 TAB 0 Refills Prov:Lloyd Cueva MD 08/16/17 Hydrochlorothiazide (Hydrochlorothiazide) 12.5 Mg Cap, 12.5 MG PO DAILY for health for 30 Days, #30 CAP 0 Refills Prov:Lloyd Cueva MD 08/16/17 Diltiazem ER 24 HR (Diltiazem ER 24 HR) 120 Mg Caper, 120 MG PO DAILY for health for 30 Days, #30 CAP 0 Refills Prov:Lloyd Cueva MD 08/16/17 Aspirin (Aspirin) 81 Mg Chew, 81 MG CHEW DAILY for health for 30 Days, #30 TAB 0 Refills Prov:Lloyd Cueva MD 1/9/18 Warfarin (Warfarin) 5 Mg Tab, 5 MG PO DAILY for Blood Clot Prevention for 30 Days, #30 TAB 0 Refills Prov:Lloyd Cueva MD 08/16/17 Lisinopril (Lisinopril) 5 Mg Tab, 5 MG PO DAILY for Blood Pressure Management for 30 Days, #30 TAB 0 Refills Prov:Lloyd Cueva MD 08/16/17 Ipratropium HFA 12.9 GM Inh (Atrovent HFA 12.9 GM Inh) 17 Mcg/Actuation Aer, 2 PUFF INH Q6HR Y for SHORTNESS OF BREATH, #1 INHALER 0 Refills Prov:Sonny Carney MD 07/27/17 Budesonide-Formoterol Inh (Symbicort Inh) 160-4.5 Mcg/Act Aero, 2 PUFF INH Q12HR for health, #1 INHALER 0 Refills Prov:Sonny Carney MD 07/27/17 Folic Acid (Folic Acid) 1 Mg Tablet, 1 MG PO DAILY for health, #30 TAB 0 Refills Prov:Sonny Carney MD 07/27/17 Nitroglycerin SL (Nitroglycerin SL) 0.4 Mg Subl, 0.4 MG SL DIRECTED Y for CHEST PAIN, #100 TAB.SL 0 Refills ONE TABLET UNDER THE TONGUE NEEDED FOR CHEST PAIN, MAY REPEAT EVERY FIVE MINUTES FOR A TOTAL OF 3 DOSES OR CALL 911 IF NO RELIEF Prov:Sonny Carney MD 07/27/17 Reported Medications Tiotropium Inh (Spiriva Handihaler) 18 Mcg Cap, INH DAILY for COPD, #30 CAP 0 Refills 1 capsule = 18 mcg 09/05/17 Albuterol 8.5 GM Inh (Proair Hfa 8.5 GM Inh) 90 Mcg/Act Aer, 2 PUFF INH Q6H Y for SHORTNESS OF BREATH, #1 INHALER 0 Refills 108 mcg/actuation 09/05/17 Sertraline (Zoloft) 50 Mg Tab, 50 MG PO DAILY, #30 TAB 0 Refills 09/05/17 Ibuprofen (Ibuprofen) 600 Mg Tab, 600 MG PO Q8H Y for PAIN, TAB 0 Refills 09/05/17 Naproxen (Naproxen) 500 Mg Tab, 500 MG PO TID Y for prn, #60 TAB 0 Refills 09/05/17 Prednisone (21) 10 mg tab Dose Pack (Prednisone (21) 10 mg tab Dose Pack) 10 Mg Pack, 10 MG PO DIRECTED for Inflammation, #1 DSPK 0 Refills 09/05/17 Azithromycin (Zithromax Tri-Raymond) 500 Mg Dspk, 500 MG PO DAILY for Infection, #1 DSPK 0 Refills 09/05/17 Trazodone (Trazodone) 100 Mg Tablet, 200 MG PO HS for Control Depression, #30 TAB 0 Refills 09/05/17 Warfarin (Warfarin) 7.5 Mg Tab, 7.5 MG PO 2XWEEK for Blood Clot Prevention, #30 TAB 0 Refills 09/05/17 Discontinued Scripts Trazodone (Trazodone) 50 Mg Tab, 50 MG PO HS Y for INSOMNIA, #30 TAB 0 Refills Prov:Sonny Carney MD 07/27/17 Current Medications Medications (Trade) Dose Ordered Sig/Sara Route Start Time Stop Time Status Last Admin (Ativan) 1 mg Q6H PRN PO 09/05/17 14:30 UNV (Ativan Inj) 1 mg Q6H PRN IM 09/05/17 14:30 UNV (Tylenol) 650 mg Q4H PRN PO 09/05/17 14:30 UNV (Milk Of Magnesia Liq) 30 ml DAILY PRN PO 09/05/17 14:30 UNV (Mag-Al Plus Susp Liq) 30 ml Q6H PRN PO 09/05/17 14:30 UNV Family Psych History Positive for alcoholism and mood disorders Social History Patient unemployed and disabled from work. Has a multiyear history of alcoholism. Does not have any significant family support. Currently homeless and oftentimes homeless. He does receive a disability check. Patient's Strengths (min. 2) Verbal and has access to healthcare. Physical Exam GENERAL: SKIN: Warm and dry. HEAD: Normocephalic. EYES: No scleral icterus. No injection or drainage. NECK: Supple, trachea midline. No JVD or lymphadenopathy. CARDIOVASCULAR: Regular rate and rhythm without murmurs, gallops, or rubs. RESPIRATORY: Breath sounds equal bilaterally. No accessory muscle use. GASTROINTESTINAL: Abdomen soft, non-tender, nondistended. MUSCULOSKELETAL: No cyanosis, or edema. BACK: Nontender without obvious deformity. No CVA tenderness. Vital Signs Vital Signs Date Time Temp Pulse Resp B/P (MAP) Pulse Ox O2 Delivery O2 Flow Rate FiO2 09/05/17 08:32 98.3 100 18 167/89 (115) 97 Room Air Lab Results Test 09/05/17 06:25 White Blood Count 13.4 TH/MM3 Red Blood Count 4.50 MIL/MM3 Hemoglobin 14.4 GM/DL Hematocrit 42.4 % Mean Corpuscular Volume 94.1 FL Mean Corpuscular Hemoglobin 32.1 PG Mean Corpuscular Hemoglobin Concent 34.1 % Red Cell Distribution Width 17.8 % Platelet Count 187 TH/MM3 Mean Platelet Volume 6.9 FL Neutrophils (%) (Auto) 75.6 % Lymphocytes (%) (Auto) 18.8 % Monocytes (%) (Auto) 4.9 % Eosinophils (%) (Auto) 0.2 % Basophils (%) (Auto) 0.5 % Neutrophils # (Auto) 10.1 TH/MM3 Lymphocytes # (Auto) 2.5 TH/MM3 Monocytes # (Auto) 0.7 TH/MM3 Eosinophils # (Auto) 0.0 TH/MM3 Basophils # (Auto) 0.1 TH/MM3 CBC Comment DIFF FINAL Differential Comment Prothrombin Time 13.3 SEC Prothromb Time International Ratio 1.3 RATIO Blood Urea Nitrogen 5 MG/DL Creatinine 0.78 MG/DL Random Glucose 107 MG/DL Total Protein 7.4 GM/DL Albumin 4.0 GM/DL Calcium Level 8.7 MG/DL Alkaline Phosphatase 191 U/L Aspartate Amino Transf (AST/SGOT) 334 U/L Alanine Aminotransferase (ALT/SGPT) 446 U/L Total Bilirubin 0.8 MG/DL Sodium Level 138 MEQ/L Potassium Level 2.8 MEQ/L Chloride Level 103 MEQ/L Carbon Dioxide Level 23.6 MEQ/L Anion Gap 11 MEQ/L Estimat Glomerular Filtration Rate 103 ML/MIN Thyroid Stimulating Hormone 3rd Gen 0.679 uIU/ML Urine Opiates Screen NEG Urine Barbiturates Screen NEG Urine Amphetamines Screen NEG Urine Benzodiazepines Screen NEG Urine Cocaine Screen NEG Urine Cannabinoids Screen NEG Ethyl Alcohol Level 144 MG/DL Mental Status Examination Appearance: Dirty, Disheveled Consciousness: Alert Orientation: x4 Motor Activity: Normal gait Speech: Unremarkable Language: Adequate Fund of Knowledge: Adequate Attention and Concentration: Adequate Memory: Unremarkable Mood: Sad, Anxious Affect: Sad, Anxious Thought Process & Associations: Intact Thought Content: Appropriate Hallucination Type: None Delusion Type: None Suicidal Ideation: Yes Suicidal Plan: Yes Suicidal Intention: Yes Homicidal Ideation: No Homicidal Plan: No Homicidal Intention: No Insight: Fair Judgment: Impulsive Assessment & Plan Problem List: (1) Adjustment disorder with depressed mood ICD Codes: F43.21 - Adjustment disorder with depressed mood Assessment & Plan Estimated LOS: days. 56-year-old male presents under a Miller act for depression with suicidal ideation. Patient has Buerger's disease and is also on anticoagulation therapy. He has a history of COPD. He is homeless and unable to care for himself as well as suicidal with plan. Due to the likelihood of him harming himself, he is being admitted for further evaluation and treatment. This physician has ordered a CBC and comprehensive metabolic panel to determine if any infectious process or metabolic process is causing or contributing to the patient's depression and suicidality. This physician also ordered a hemoglobin A1c and lipid panel due to the patient's age, lack of care for self, poor nutritional status and multiple medical problems. Blood sugar abnormalities and cardiovascular disease are likely and may contribute to this patient's depression. Hospitalist consult was placed to help manage the patient 's anticoagulation therapy, COPD, etc. Thyroid-stimulating hormone, vitamin B- 12 and vitamin D levels were also ordered as deficiencies in these areas can also cause or contribute to the patient's depression. An EKG was ordered to assess the patient's cardiac conduction status prior to making substantial changes in psychotropic medicines which could adversely effect the electrical system of his heart. This case was discussed with nurse Haynes. Case management will also be involved to assist with information gathering and disposition planning. Ronan Aleman MD Sep 05, 2017 14:28
[2017-09-05] MEDS ORDERED: LORazepam 1 MG TAB PO PRN (14:30)
[2017-09-05] MEDS ORDERED: LORazepam 2 MG/ML VIAL IM PRN (14:30)
[2017-09-05] MEDS ORDERED: ALBUTEROL SULFATE 90 MCG/ACT HFA 8 GM INHALER INH PRN (14:30)
[2017-09-05] MEDS ORDERED: ACETAMINOPHEN 325 MG TAB PO PRN (14:30)
[2017-09-05] MEDS ORDERED: ALUMINUM/MAGNESIUM/SIMETH 30 ML CUP PO PRN (14:30)
[2017-09-05] MEDS ORDERED: MAGNESIUM HYDROXIDE SUSP 30 ML CUP PO PRN (14:30)
[2017-09-05] MEDS ORDERED: IPRATROPIUM BROMIDE 17 MCG/ACT 12.9 GM INHALER INH PRN (14:30)
[2017-09-05] MEDS ORDERED: PILL SPLITTER OTHER PRN (15:00)
--- NOTE | 2017-09-05 15:41 | PD.CONS ---
HPI Service [facility] Hospitalists Consult Requested By DR LUEVANO Reason for Consult COPD AND ANTICOAGULATION THERAPY Primary Care Physician Seth Vaughan MD Diagnoses: History of Present Illness PATIENT IS A 56-year-old white male WHO presents to emergency department under [place] act byTHE POLICE DEPARTMENT. The patient had notified police that he was feeling depressed and suicidal. He has a KNOWN history of depression and Buerger's disease. He is on Coumadin long-term BUT NOT VERY COMPLIANT. He was referred from [facility] to [place] for his evaluation today due to his long-term anticoagulation therapy. The patient states HE HAD PAID A whole month's rent to a friend to stay but he only stayed a few days before his friend kicked him out. SINCE THAT TIME HE HAS been living in a tent for the last few weeks. Patient states it is cold out and has been raining. Patient has no current plan on self-harm. He also reports being treated in the last 4 days at [facility] for bronchitis and COPD. He is currently taken steroids, inhalers and has one more day left of Zithromax. Positive cough, congestion. No fever chills. Still smoking. He denies any homicidal ideation. No toxic ingestions. HAS NOT BEEN VERY COMPLIANT WITH HIS MEDICATIONS RECENTLY AND INR WAS FOUND TO BE SUBTHERAPEUTIC We have been asked to consult regarding anticoagulation and COPD Review of Systems Constitutional: COMPLAINS OF: Fatigue, Chills, DENIES: Diaphoretic episodes, Fever, Weight gain, Weight loss, Dizziness, Change in appetite, Night Sweats Endocrine: DENIES: Heat/cold intolerance, Polydipsia, Polyuria, Polyphagia Eyes: DENIES: Blurred vision, Diplopia, Eye inflammation, Eye pain, Vision loss , Photosensitivity Ears, nose, mouth, throat: COMPLAINS OF: Nasal discharge, DENIES: Tinnitus, Hearing loss, Vertigo, Oral lesions, Throat pain, Running Nose, Epistaxis Respiratory: COMPLAINS OF: Cough, Sputum production, Shortness of breath, DENIES: Apneas, Snoring, Wheezing, Hemoptysis Cardiovascular: DENIES: Chest pain, Palpitations, Syncope, Dyspnea on Exertion , PND, Lower Extremity Edema Gastrointestinal: DENIES: Abdominal pain, Black stools, Bloody stools, Constipation Musculoskeletal: COMPLAINS OF: Joint pain, DENIES: Muscle aches, Stiffness, Joint Swelling, Back pain Integumentary: DENIES: Abnormal pigmentation, Nail changes, Pruritus Hematologic/lymphatic: DENIES: Bruising, Lymphadenopathy Immunologic/allergic: DENIES: Eczema, Urticaria Neurologic: DENIES: Abnormal gait, Headache, Localized weakness, Paresthesias, Seizures Psychiatric: COMPLAINS OF: Anxiety, Mood changes, Depression, Suicidal Ideation , DENIES: Confusion Except as stated in HPI: all other systems reviewed are Neg Past Family Social History Allergies: Coded Allergies: morphine (Unverified Allergy, Unknown, STS MAKES HIM SICK, 09/05/17) Past Medical History Hypertension Hypercholesterolemia Hearing loss Tobacco abuse Burger's disease with chronic anticoagulation Noncompliance COPD GERD Ulcers Schizophrenia Bipolar Past Surgical History Left hand surgery 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 Collapsed lung surgery Reported Medications Reported Meds & Active Scripts Active [Acyclovir 5% Oint (5 Gm)] 5 APPLIC/5 GM Oint 1 Applic TOPICAL 5 TIMES A DAY 30 Days Latuda (Lurasidone) 60 Mg Tab 60 Mg PO DAILY 30 Days Atorvastatin (Atorvastatin Calcium) 20 Mg Tab 20 Mg PO HS 30 Days Hydrochlorothiazide 12.5 Mg Cap 12.5 Mg PO DAILY 30 Days Diltiazem ER 24 HR (Diltiazem HCl) 120 Mg Caper 120 Mg PO DAILY 30 Days Aspirin 81 Mg Chew 81 Mg CHEW DAILY 30 Days Warfarin 5 Mg Tab 5 Mg PO DAILY 30 Days Lisinopril 5 Mg Tab 5 Mg PO DAILY 30 Days Atrovent HFA 12.9 GM Inh (Ipratropium [place]) 17 Mcg/Actuation Aer 2 Puff INH Q6HR PRN Symbicort Inh (Budesonide/Formoterol Fumarate) 160-4.5 Mcg/Act Aero 2 Puff INH Q12HR Folic Acid 1 Mg Tablet 1 Mg PO DAILY Nitroglycerin SL (Nitroglycerin) 0.4 Mg Subl 0.4 Mg SL DIRECTED PRN ONE TABLET UNDER THE TONGUE NEEDED FOR CHEST PAIN, MAY REPEAT EVERY FIVE MINUTES FOR A TOTAL OF 3 DOSES OR CALL 911 IF NO RELIEF Reported Spiriva Handihaler (Tiotropium Inh) 18 Mcg Cap Unknown Dose INH DAILY 1 capsule = 18 mcg Proair Hfa 8.5 GM Inh (Albuterol Sulfate) 90 Mcg/Act Aer 2 Puff INH Q6H PRN 108 mcg/actuation Zoloft (Sertraline HCl) 50 Mg Tab 50 Mg PO DAILY Ibuprofen 600 Mg Tab 600 Mg PO Q8H PRN Naproxen 500 Mg Tab 500 Mg PO TID PRN Prednisone (21) 10 mg tab Dose Pack (Prednisone) 10 Mg Pack 10 Mg PO DIRECTED Zithromax Tri-Raymond (Azithromycin) 500 Mg Dspk 500 Mg PO DAILY Trazodone (Trazodone HCl) 100 Mg Tablet 200 Mg PO HS Warfarin 7.5 Mg Tab 7.5 Mg PO 2XWEEK Active Ordered Medications Current Medications Potassium Chloride (KCl) 30 meq ONCE ONCE PO Last administered on 09/05/17at 07 :41; Start 09/05/17 at 07:45; Stop 09/05/17 at 07:46; Status DC Lorazepam (Ativan) 1 mg Q6H PRN PO MODERATE TO SEVERE ANXIETY; Start 09/05/17 at 14:30 Lorazepam (Ativan Inj) 1 mg Q6H PRN IM MODERATE TO SEVERE ANXIETY; Start at 14:30 Acetaminophen (Tylenol) 650 mg Q4H PRN PO Pain 1-5 or Temp >101F; Start at 14:30 Magnesium Hydroxide (Milk Of Magnesia Liq) 30 ml DAILY PRN PO CONSTIPATION; Start 09/05/17 at 14:30 Al Hydrox/Mg Hydrox/Simethicone (Mag-Al Plus Susp Liq) 30 ml Q6H PRN PO DYSPEPSIA; Start 09/05/17 at 14:30 Albuterol Sulfate (Proair Hfa Inh) 2 puff Q6H PRN INH SHORTNESS OF BREATH; Start 09/05/17 at 14:30 Aspirin (Aspirin Chew) 81 mg DAILY CHEW ; Start 09/06/17 at 09:00 Atorvastatin Calcium (Lipitor) 20 mg HS PO ; Start 09/05/17 at 21:00 Azithromycin (Zithromax) 500 mg DAILY PO ; Start 09/06/17 at 09:00 Budesonide/ Formoterol Fumarate (Symbicort 160-4.5 Mcg Inh) 2 puff Q12HR INH ; Start 09/05/17 at 21:00 Folic Acid (Folate) 1 mg DAILY PO ; Start 09/06/17 at 09:00 Hydrochlorothiazide (Microzide) 12.5 mg DAILY PO ; Start 09/06/17 at 09:00 Ibuprofen (Motrin) 600 mg Q8H PRN PO PAIN 1-5; Start 09/05/17 at 14:30 Ipratropium [place] (Atrovent Hfa Inh) 2 puff Q6HR PRN INH SHORTNESS OF BREATH ; Start 09/05/17 at 14:30; Stop 09/05/17 at 14:57; Status DC Lisinopril (Prinivil) 5 mg DAILY PO ; Start 09/06/17 at 09:00 Lurasidone HCl (Latuda) 60 mg DAILY PO ; Start 09/06/17 at 09:00 Warfarin Sodium (Coumadin) 5 mg DAILY@1600 PO ; Start 09/06/17 at 16:00; Stop at 16:00; Status DC Miscellaneous (Pill Splitter) 1 ea UNSCH PRN OTHER SEE LABEL COMMENTS; Start at 15:00 Patient Medication Teaching (Coumadin Booklet) 1 ONCE ONCE OTHER ; Start at 15:00; Stop 09/05/17 at 15:01; Status DC Ipratropium [place] (Atrovent Neb) 0.5 mg Q6HR NEB NEB ; Start 09/05/17 at 16: 00 Non-Formulary Medication 120 mg DAILY PO ; Start 09/05/17 at 15:15; Status UNV Non-Formulary Medication 1 applic 5 TIMES A DAY TOPICAL ; Start 09/05/17 at 18: 00; Status UNV Warfarin Sodium (Coumadin) 7.5 mg DAILY@1600 PO ; Start 09/05/17 at 15:15; Status UNV Enoxaparin Sodium (Lovenox Inj) 60 mg Q12H SQ ; Start 09/05/17 at 15:15; Status UNV Family History Tobacco abuse Mother with dementia father had a stroke Social History cRACK cocaine Methamphetamine use Tobacco abuse Alcohol abuse Currently homeless living in a tent Physical Exam Vital Signs Vital Signs Date Time Temp Pulse Resp B/P (MAP) Pulse Ox O2 Delivery O2 Flow Rate FiO2 09/05/17 08:32 98.3 100 18 167/89 (115) 97 Room Air 09/05/17 06:12 98.2 101 18 187/91 (123) 100 Physical Exam GENERAL: This is a well-nourished, well-developed patient, in no apparent distress. Thin in appearance SKIN: No rashes, ecchymoses or lesions. Cool and dry. HEAD: Atraumatic. Normocephalic. No temporal or scalp tenderness. EYES: Pupils equal round and reactive. Extraocular motions intact. No scleral icterus. No injection or drainage. ENT: Nose without bleeding, purulent drainage or septal hematoma. Throat without erythema, tonsillar hypertrophy or exudate. Uvula midline. Airway patent. NECK: Trachea midline. No JVD or lymphadenopathy. Supple, nontender, no meningeal signs. CARDIOVASCULAR: Regular rate and rhythm without murmurs, gallops, or rubs. S1 and S2 no S3-S4 RESPIRATORY: Breath sounds equal bilaterally. No wheezes, rales, or rhonchi. Coarse breath sounds bilaterally GASTROINTESTINAL: Abdomen soft, non-tender, nondistended. No hepato-splenomegaly , or palpable masses. No guarding. MUSCULOSKELETAL: Extremities without clubbing, cyanosis, or edema. No joint tenderness, effusion, or edema noted. No calf tenderness. Negative Homans sign bilaterally. Amputations most of left hand except for the pinky NEUROLOGICAL: Awake and alert. Cranial nerves II through XII intact. Motor and sensory grossly within normal limits. Five out of 5 muscle strength in all muscle groups. Normal speech. Insight and judgment is limited Mood and behavior is somewhat appropriate Laboratory Laboratory Tests Test 09/05/17 06:25 White Blood Count 13.4 Red Blood Count 4.50 Hemoglobin 14.4 Hematocrit 42.4 Mean Corpuscular Volume 94.1 Mean Corpuscular Hemoglobin 32.1 Mean Corpuscular Hemoglobin Concent 34.1 Red Cell Distribution Width 17.8 Platelet Count 187 Mean Platelet Volume 6.9 Neutrophils (%) (Auto) 75.6 Lymphocytes (%) (Auto) 18.8 Monocytes (%) (Auto) 4.9 Eosinophils (%) (Auto) 0.2 Basophils (%) (Auto) 0.5 Neutrophils # (Auto) 10.1 Lymphocytes # (Auto) 2.5 Monocytes # (Auto) 0.7 Eosinophils # (Auto) 0.0 Basophils # (Auto) 0.1 CBC Comment DIFF FINAL Differential Comment Prothrombin Time 13.3 Prothromb Time International Ratio 1.3 Blood Urea Nitrogen 5 Creatinine 0.78 Random Glucose 107 Total Protein 7.4 Albumin 4.0 Calcium Level 8.7 Alkaline Phosphatase 191 Aspartate Amino Transf (AST/SGOT) 334 Alanine Aminotransferase (ALT/SGPT) 446 Total Bilirubin 0.8 Sodium Level 138 Potassium Level 2.8 Chloride Level 103 Carbon Dioxide Level 23.6 Anion Gap 11 Estimat Glomerular Filtration Rate 103 Thyroid Stimulating Hormone 3rd Gen 0.679 Urine Opiates Screen NEG Urine Barbiturates Screen NEG Urine Amphetamines Screen NEG Urine Benzodiazepines Screen NEG Urine Cocaine Screen NEG Urine Cannabinoids Screen NEG Ethyl Alcohol Level 144 Result Diagram: 09/05/1762409/05/17624 Assessment and Plan Assessment and Plan COPD and tobacco abuse recommend smoking cessation continue on nebulized treatments as well as Mucinex and DuoNeb's incentive spirometry Symbicort Hypertension resume home medications Hyperlipidemia continue on statins Burger's disease. Smoking restart Coumadin 7.5 mg daily since he subtherapeutic and continue on Lovenox 60 mg subcutaneous twice a day Noncompliance recommend patient take his medications at home recommend smoking cessation Homeless Will need case management for help with this and follow-up Tobacco abuse recommend smoking cessation NicoDerm patch Psychiatric problems defer to psychiatry GERD and ulcers and gastritis continue on PPI Case management for help with discharge Code Status Full code Discussed Condition With Psychiatry and RN and patient Dayday Dudley DO Sep 05, 2017 15:41
[2017-09-05] MEDS ORDERED: RESP: ALBUTEROL 2.5 MG/IPRATROPIUM 0.5 MG NEB (PRN) NEB (15:45)
[2017-09-05] MEDS ORDERED: cloNIDine HCL 0.1 MG TAB PO PRN (15:45)
[2017-09-05] MEDS ORDERED: RESP: IPRATROPIUM 0.5 MG/2.5 ML NEB NEB SCH (16:00)
[2017-09-05] MEDS: ENOXAPARIN SODIUM 60 MG/0.6 ML SYRINGE SQ SCH (17:00)
[2017-09-05] MEDS ORDERED: NICOTINE 14 MG/24 HR PATCH T-DERMAL ONE (17:00)
[2017-09-05] MEDS: WARFARIN SOD 7.5 MG TAB PO SCH (17:13)
[2017-09-05 17:16] VITALS: O2SAT 94
[2017-09-05 18:00] VITALS: BP 167/84; PULSE 107; RESP 16; TEMP 98; O2SAT 99
[2017-09-05] MEDS ORDERED: ACYCLOVIR 5% OINT 5 APPLIC/5 GM TUBE TOPICAL SCH (18:00)
[2017-09-05] MEDS: guaiFENesin E.R. 600 MG TAB PO SCH (20:41)
[2017-09-05] MEDS: PANTOPRAZOLE SOD 40 MG DELAYED RELEASE TAB PO SCH (20:41)
[2017-09-05] MEDS ORDERED: ATORVASTATIN 20 MG TAB PO SCH (21:00)
[2017-09-05] MEDS: BUDESONIDE-FORMOTEROL 160/4.5 MCG INHALER INH SCH (21:00)
[2017-09-05] MEDS ORDERED: REMOVE OLD NICODERM (NICOTINE) PATCH T-DERMAL SCH (21:00)
[2017-09-05] MEDS ORDERED: RESP: IPRATROPIUM 0.5 MG/2.5 ML NEB NEB PRN (21:00)
[2017-09-05] MEDS: predniSONE 20 MG TAB PO SCH (21:00)
[2017-09-06 06:03] VITALS: BP 101/60; PULSE 104; RESP 18; TEMP 98.1; O2SAT 98
[2017-09-06] MEDS: IBUPROFEN 600 MG TAB PO PRN (06:24)
[2017-09-06 07:30] LABS: AUTOMATED NEUTROPHIL # 7.7 TH/MM3 (1.8-7.7); BASOPHIL % 0.4 % (0.0-2.0); EOSINOPHIL # 0.1 TH/MM3 (0-0.4); EOSINOPHIL % 0.7 % (0.0-4.0); HEMATOCRIT 46.9 % (39.0-51.0); HEMOGLOBIN 16.2 GM/DL (13.0-17.0); LYMPH % 19.5 % (9.0-44.0); LYMPHOCYTE # 2.1 TH/MM3 (1.0-4.8); MEAN CELL VOLUME 93.9 FL (80.0-100.0); MEAN CORPUSCULAR HEMOGLOBIN 32.4 PG (27.0-34.0); MEAN CORPUSCULAR HGB CONC 34.5 % (32.0-36.0); MEAN PLATELET VOLUME 7.4 FL (7.0-11.0); MONO % 6.5 % (0.0-8.0); MONOCYTE # 0.7 TH/MM3 (0-0.9); NEUT % 72.9 % (16.0-70.0); PLATELET COUNT 184 TH/MM3 (150-450); RED BLOOD COUNT 4.99 MIL/MM3 (4.50-5.90); RED CELL DISTRIBUTION WIDTH 17.8 % (11.6-17.2); WHITE BLOOD COUNT 10.5 TH/MM3 (4.0-11.0)
[2017-09-06 07:39] LABS: INTERNATIONAL NORMALIZED RATIO 1.4 RATIO; PROTHROMBIN TIME - PATIENT 14.1 SEC (9.8-11.6)
[2017-09-06 08:08] LABS: ALBUMIN 3.3 GM/DL (3.4-5.0); AST (GOT) 341 U/L (15-37); BICARBONATE 31.8 MEQ/L (21.0-32.0); BLOOD UREA NITROGEN 12 MG/DL (7-18); CALCIUM 8.7 MG/DL (8.5-10.1); CHLORIDE 97 MEQ/L (98-107); GLUCOSE,RANDOM 78 MG/DL (74-106); MAGNESIUM 1.7 MG/DL (1.5-2.5); SODIUM (NA) 137 MEQ/L (136-145)
[2017-09-06 08:30] LABS: ALKALINE PHOSPHATASE 228 U/L (45-117); ALT (GPT) 460 U/L (12-78); CHOLESTEROL 176 MG/DL (120-200); CHOLESTEROL/ HDL RATIO 1.98 RATIO; CREATININE 0.75 MG/DL (0.60-1.30); FREE T4 1.05 NG/DL (0.76-1.46); GLOMERULAR FILTRATION RATE 108 ML/MIN (>89); HDL CHOLESTEROL 88.6 MG/DL (40.0-60.0); LDL CHOLESTEROL 73 MG/DL (0-99); PHOSPHORUS 3.3 MG/DL (2.5-4.9); TOTAL BILIRUBIN ADULT 0.9 MG/DL (0.2-1.0); TOTAL PROTEIN 7.2 GM/DL (6.4-8.2); TRIGLYCERIDES 72 MG/DL (42-150)
[2017-09-06] MEDS ORDERED: REMOVE OLD PATCH T-DERMAL SCH (09:00)
[2017-09-06] MEDS ORDERED: NICOTINE 14 MG/24 HR PATCH T-DERMAL SCH (09:00)
[2017-09-06] MEDS: HYDROCHLOROTHIAZIDE 12.5 MG CAP PO SCH (09:45)
[2017-09-06] MEDS: ASPIRIN 81 MG CHEW TAB CHEW SCH (09:45)
[2017-09-06] MEDS: FOLIC ACID 1 MG TAB PO SCH (09:45)
[2017-09-06] MEDS: guaiFENesin E.R. 600 MG TAB PO SCH ×2 (09:45→21:18)
[2017-09-06] MEDS: AZITHROMYCIN 250 MG TAB PO SCH (09:46)
[2017-09-06] MEDS: PANTOPRAZOLE SOD 40 MG DELAYED RELEASE TAB PO SCH ×2 (09:46→21:18)
[2017-09-06] MEDS: LURASIDONE 40 MG TAB PO SCH (09:46)
[2017-09-06] MEDS: BUDESONIDE-FORMOTEROL 160/4.5 MCG INHALER INH SCH ×2 (09:48→21:16)
[2017-09-06] MEDS: LISINOPRIL 5 MG TAB PO SCH (09:49)
[2017-09-06] MEDS ORDERED: LORazepam 2 MG/ML VIAL IV PUSH PRN ×4 (12:45)
[2017-09-06] MEDS ORDERED: LORazepam 1 MG TAB PO PRN (12:45)
[2017-09-06] MEDS ORDERED: LORazepam 2 MG TAB PO PRN (12:45)
[2017-09-06] MEDS ORDERED: FLUMAZENIL 0.5 MG/5 ML VIAL IV PUSH PRN (12:45)
--- NOTE | 2017-09-06 12:53 | HHI.PYPN ---
Subjective Remarks Patient initially submitted Dr. Ronan Aleman who did the initial psychiatric history and physical. That that has reviewed and agreed with. I had done the initial psychiatric admission template orders. And on the med reconciliation review. Patient seen by me today with nurse Kina. Is alert oriented the acknowledges being homeless acknowledges heavy daily use of alcohol for the past 3-4 weeks with a.m. drinking and solar drinking and blacking out. Acknowledges prior detoxes but nontender the past year he acknowledges multiple legal contacts with her drinking including 45 DUIs. He states he has his depression with suicidality.. That continues that is being followed by [facility] act for that.. At this time patient continues to meet criteria for inpatient psychiatric care. Though I will discontinue the when necessary Ativan 's and order the ciwa enid We have hospitalist also consulting with us. Of interest patient states he has a place to stay as of September 08 with a friend of his. For now continue treatment also July feel patient does have capacity to sign for his medications and treatment thus I'll lift Miller act allow her to sign voluntary Review of Systems Except as stated in HPI: all other systems reviewed are Neg Mental Status Examination Appearance: Dirty, Disheveled Consciousness: Alert Orientation: x4 Motor Activity: Normal gait Speech: Unremarkable Language: Adequate Fund of Knowledge: Adequate Attention and Concentration: Adequate Memory: Unremarkable Mood: Sad, Anxious Affect: Sad, Anxious Thought Process & Associations: Intact Thought Content: Appropriate Hallucination Type: None Delusion Type: None Suicidal Ideation: Yes Suicidal Plan: Yes Suicidal Intention: Yes Homicidal Ideation: No Homicidal Plan: No Homicidal Intention: No Insight: Fair Judgment: Impulsive Results Labs Test 09/06/17 06:10 White Blood Count 10.5 TH/MM3 Red Blood Count 4.99 MIL/MM3 Hemoglobin 16.2 GM/DL Hematocrit 46.9 % Mean Corpuscular Volume 93.9 FL Mean Corpuscular Hemoglobin 32.4 PG Mean Corpuscular Hemoglobin Concent 34.5 % Red Cell Distribution Width 17.8 % Platelet Count 184 TH/MM3 Mean Platelet Volume 7.4 FL Neutrophils (%) (Auto) 72.9 % Lymphocytes (%) (Auto) 19.5 % Monocytes (%) (Auto) 6.5 % Eosinophils (%) (Auto) 0.7 % Basophils (%) (Auto) 0.4 % Neutrophils # (Auto) 7.7 TH/MM3 Lymphocytes # (Auto) 2.1 TH/MM3 Monocytes # (Auto) 0.7 TH/MM3 Eosinophils # (Auto) 0.1 TH/MM3 Basophils # (Auto) 0.0 TH/MM3 CBC Comment DIFF FINAL Differential Comment Prothrombin Time 14.1 SEC Prothromb Time International Ratio 1.4 RATIO Blood Urea Nitrogen 12 MG/DL Creatinine 0.75 MG/DL Random Glucose 78 MG/DL Total Protein 7.2 GM/DL Albumin 3.3 GM/DL Calcium Level 8.7 MG/DL Phosphorus Level 3.3 MG/DL Magnesium Level 1.7 MG/DL Alkaline Phosphatase 228 U/L Aspartate Amino Transf (AST/SGOT) 341 U/L Alanine Aminotransferase (ALT/SGPT) 460 U/L Total Bilirubin 0.9 MG/DL Sodium Level 137 MEQ/L Potassium Level 3.3 MEQ/L Chloride Level 97 MEQ/L Carbon Dioxide Level 31.8 MEQ/L Anion Gap 8 MEQ/L Estimat Glomerular Filtration Rate 108 ML/MIN Triglycerides Level 72 MG/DL Cholesterol Level 176 MG/DL LDL Cholesterol 73 MG/DL HDL Cholesterol 88.6 MG/DL Cholesterol/HDL Ratio 1.98 RATIO Vitamin B12 Level 614 PG/ML 25-Hydroxy Vitamin D Total 23.5 ng/ML Free Thyroxine 1.05 NG/DL Thyroid Stimulating Hormone 3rd Gen 2.060 uIU/ML Vitals/IOs Vital Signs Date Time Temp Pulse Resp B/P (MAP) Pulse Ox O2 Delivery O2 Flow Rate FiO2 09/06/17 06:03 98.1 104 18 101/60 (74) 98 09/05/17 17:16 21 09/05/17 08:32 Room Air Intake and Output 09/06/17 09/06/17 09/07/17 08:00 16:00 00:00 Intake Total 240 ml Balance 240 ml Assessment & Plan Problem List: (1) Adjustment disorder with depressed mood ICD Codes: F43.21 - Adjustment disorder with depressed mood (2) Alcohol abuse with intoxication ICD Codes: F10.129 - Alcohol abuse with intoxication, unspecified Assessment & Plan Estimated LOS: 3-5 days patient remains depressed though he is detoxing. Distally from this of capacity the subtle lift [place] act allow her to sign voluntary. We'll continue theciwa Justification for Cont. Inpt. At this time patient decompensated placed in a lower level of care Discharge Planning Patient states a some place to live as of 09/08/17 Sonny Carney MD Sep 06, 2017 12:53
[2017-09-06] MEDS: predniSONE 20 MG TAB PO SCH ×2 (13:08→21:18)
[2017-09-06] MEDS: DILTIAZEM-CD 120 MG CAP ER PO SCH (13:09)
[2017-09-06] MEDS: ACYCLOVIR 5% OINT 15 APPLIC/15 GM TUBE TOPICAL SCH ×3 (14:00→21:17)
[2017-09-06] MEDS ORDERED: POTASSIUM CHLORIDE 10 MEQ CONTROLLED RELEASE TAB PO ONE (14:30)
--- NOTE | 2017-09-06 14:51 | HHI.PR ---
Subjective Remarks Follow up on patient with COPD, bronchitis, Buerger's disease. Patient seen and examined. Patient complaining of chills. Reports cough with greenish sputum production. Reports shortness of breath, generalized body aches and runny nose. He denies any chest pain. He is requesting pain medication. He states he has been drinking 12 to 18 beers daily and his last alcoholic beverage was just before his admission. He continues to smoke. Objective Vitals Vital Signs Date Time Temp Pulse Resp B/P (MAP) Pulse Ox O2 Delivery O2 Flow Rate FiO2 09/06/17 06:03 98.1 104 18 101/60 (74) 98 09/05/17 18:00 98.0 107 16 167/84 (111) 99 09/05/17 17:40 09/05/17 17:16 94 21 I/O 09/05/17 09/05/17 09/05/17 09/06/17 09/06/17 09/06/17 07:00 15:00 23:00 07:00 15:00 23:00 Intake Total 240 ml Balance 240 ml Intake Oral 240 ml Result Diagram: 09/06/17 0610 09/06/17 0610 Objective Remarks GENERAL: This is a well-nourished, well-developed thin male patient, in no apparent distress. Awake and alert. SKIN: No rashes, ecchymoses or lesions. Warm to touch. HEAD: Atraumatic. Normocephalic. EYES: Pupils equal round and reactive. Extraocular motions intact. No scleral icterus. No injection or drainage. ENT: (+)Rhinorrhea. Throat without erythema, tonsillar hypertrophy or exudate. Uvula midline. Airway patent. NECK: Trachea midline. No JVD or lymphadenopathy. Supple, nontender, no meningeal signs. CARDIOVASCULAR: Regular rate and rhythm without murmurs, gallops, or rubs. S1 and S2 no S3-S4 RESPIRATORY: (+)Coarse BS. Poor air entry. GASTROINTESTINAL: Abdomen soft, non-tender, nondistended. No hepato-splenomegaly , or palpable masses. No guarding. MUSCULOSKELETAL: Extremities without clubbing, cyanosis, or edema. Amputations most of left hand except for the pinky. NEUROLOGICAL: Awake and alert. Cranial nerves II through XII grossly intact. Motor and sensory grossly within normal limits. Five out of 5 muscle strength in all muscle groups. Normal speech. Medications and IVs Current Medications Medications (Trade) Dose Ordered Sig/Sara Route Start Time Stop Time Status Last Admin (Tylenol) 650 mg Q4H PRN PO 09/05/17 14:30 09/05/17 20:40 (Milk Of Magnesia Liq) 30 ml DAILY PRN PO 09/05/17 14:30 (Mag-Al Plus Susp Liq) 30 ml Q6H PRN PO 09/05/17 14:30 (Proair Hfa Inh) 2 puff Q6H PRN INH 09/05/17 14:30 (Aspirin Chew) 81 mg DAILY CHEW 09/06/17 09:00 09/06/17 09:45 (Lipitor) 20 mg HS PO 09/05/17 21:00 Future Hold 09/05/17 20:41 (Zithromax) 500 mg DAILY PO 09/06/17 09:00 09/06/17 09:46 (Symbicort 160-4.5 Mcg Inh) 2 puff Q12HR INH 09/05/17 21:00 09/06/17 09:48 (Folate) 1 mg DAILY PO 09/06/17 09:00 09/06/17 09:45 (Microzide) 12.5 mg DAILY PO 09/06/17 09:00 09/06/17 09:45 (Motrin) 600 mg Q8H PRN PO 09/05/17 14:30 09/06/17 06:24 (Prinivil) 5 mg DAILY PO 09/06/17 09:00 09/06/17 09:49 (Latuda) 60 mg DAILY PO 09/06/17 09:00 09/06/17 09:46 (Pill Splitter) 1 ea UNSCH PRN OTHER 09/05/17 15:00 (Cardizem Cd) 120 mg DAILY PO 09/05/17 17:00 09/06/17 13:09 (Coumadin) 7.5 mg DAILY@1600 PO 09/05/17 16:00 09/05/17 17:13 (Lovenox Inj) 60 mg Q12H SQ 09/05/17 17:00 (Catapres) 0.1 mg Q4H PRN PO 09/05/17 15:45 (Mucinex Er) 600 mg BID PO 09/05/17 21:00 09/06/17 09:45 (Duoneb Neb) 1 ampule Q4HR NEB PRN NEB 09/05/17 15:45 (Deltasone) 20 mg BID PO 09/05/17 21:00 09/06/17 13:08 (Protonix) 40 mg Q12HR PO 09/05/17 21:00 09/06/17 09:46 (Habitrol 14 Mg Patch.24 Hr) 1 patch DAILY T-DERMAL 09/06/17 09:00 09/06/17 09:00 Miscellaneous Information 1 DAILY T-DERMAL 09/06/17 09:00 (Atrovent Neb) 0.5 mg Q6HR NEB PRN NEB 09/05/17 21:00 (Zovirax 5% Oint (15 Gm)) 1 applic 5 TIMES A DAY TOPICAL 09/06/17 14:00 09/06/17 14:00 Pharmacy Profile Note 0 ml @ 0 mls/hr UNSCH OTHER 09/06/17 11:45 (Romazicon Inj) 0.2 mg Q1M PRN IV PUSH 09/06/17 12:45 (Ativan) 1 mg Q4H PRN PO 09/06/17 12:45 (Ativan Inj) 1 mg Q4H PRN IV PUSH 09/06/17 12:45 (Ativan) 2 mg Q2H PRN PO 09/06/17 12:45 (Ativan Inj) 2 mg Q2H PRN IV PUSH 09/06/17 12:45 (Ativan Inj) 2 mg Q1H PRN IV PUSH 09/06/17 12:45 (Ativan Inj) 2 mg Q15M PRN IV PUSH 09/06/17 12:45 (Zoloft) 50 mg DAILY PO 09/07/17 09:00 (Desyrel) 200 mg HS PO 09/06/17 21:00 A/P Assessment and Plan Depression Suicidal ideation - admitted under [place] Act - management per psychiatric team COPD Acute on chronic bronchitis Ongoing tobaccoism - continue on Azithromycin and po steroids - still with cough with greenish sputum production, chills, dyspnea. Patient is afebrile. O2 sats 98% on RA. - obtain CXR - obtain influenza A/B - sputum cx ordered - discussed smoking cessation - continue on Mucinex, Symbicort and Duoneb's Hypokalemia - po repletion ordered - am labs to monitor response Hypertension HLD - continue patient on Cardizem Cd 120mg daily, Lisinopril 5mg, HCTZ 12.5mg Transaminitis Hep C, treatment naive Alcohol abuse - ethyl alcohol 144 on admit - [facility] protocol - thiamine/multivitamin/folic acid daily - monitor for signs of withdrawal - avoid hepatotoxic agents - hold statin therapy - discussed importance of complete alcohol cessation - Recommend patient follow up with physician's aide as outpatient. Buerger's Disease on chronic anticoagulation with Coumadin with goal INR 2.5-3.0 Medication noncompliance - INR subtherapeutic. Continue on Coumadin 7.5 mg daily. Pharmacy to dose. Continue on Lovenox 60mg sq BID until INR therapeutic. - Coumadin diet - ASA daily - discontinue Nicotine patch AAA - incidental finding of 3.8cm abdominal aortic aneurysm last admit - Discussed findings with patient, he is aware, already follows with vascular surgeon as outpatient History of RPR reactive, previous treatment per patient years ago - RPR reactive with reflex to FTA ABS reactive 07/22/17 - Seen in consultation by ID 08/14/17. No further treatment if HIV negative, HIV 08/15/17 negative GERD/ulcers - continue on PPI DVT prophylaxis - patient is ambulatory Selina Beasley Sep 06, 2017 14:51
[2017-09-06] MEDS ORDERED: WARFARIN SOD 5 MG TAB PO SCH (16:00)
[2017-09-06 16:32] LABS: HEMOGLOBIN A1C 5.6 % (4.3-6.0)
[2017-09-06] MEDS: WARFARIN SOD 7.5 MG TAB PO SCH (16:57)
[2017-09-06] MEDS: ENOXAPARIN SODIUM 60 MG/0.6 ML SYRINGE SQ SCH (17:00)
[2017-09-06 18:41] VITALS: BP 127/71; PULSE 97; RESP 17; TEMP 98.1; O2SAT 98
[2017-09-06] MEDS: traZODone HCL 100 MG TAB PO SCH (21:18)
[2017-09-07] MEDS: ENOXAPARIN SODIUM 60 MG/0.6 ML SYRINGE SQ SCH ×2 (05:34→16:56)
[2017-09-07] MEDS: ACYCLOVIR 5% OINT 15 APPLIC/15 GM TUBE TOPICAL SCH ×5 (05:34→21:05)
[2017-09-07] MEDS: IBUPROFEN 600 MG TAB PO PRN ×2 (05:38→14:15)
[2017-09-07 06:00] VITALS: BP 117/71; PULSE 95; RESP 16; TEMP 97.7; O2SAT 96
[2017-09-07] MEDS: MULTIVITAMIN TAB PO SCH (08:43)
[2017-09-07] MEDS: DILTIAZEM-CD 120 MG CAP ER PO SCH (08:43)
[2017-09-07] MEDS: HYDROCHLOROTHIAZIDE 12.5 MG CAP PO SCH (08:43)
[2017-09-07] MEDS: THIAMINE HCL 100 MG TAB PO SCH (08:43)
[2017-09-07] MEDS: guaiFENesin E.R. 600 MG TAB PO SCH ×2 (08:44→21:05)
[2017-09-07] MEDS: FOLIC ACID 1 MG TAB PO SCH (08:44)
[2017-09-07] MEDS: SERTRALINE HCL 50 MG TAB PO SCH (08:44)
[2017-09-07] MEDS: LURASIDONE 40 MG TAB PO SCH (08:44)
[2017-09-07] MEDS: ASPIRIN 81 MG CHEW TAB CHEW SCH (08:44)
[2017-09-07] MEDS: PANTOPRAZOLE SOD 40 MG DELAYED RELEASE TAB PO SCH ×2 (08:44→21:05)
[2017-09-07] MEDS: AZITHROMYCIN 250 MG TAB PO SCH (08:44)
[2017-09-07] MEDS: predniSONE 20 MG TAB PO SCH ×2 (08:44→21:05)
[2017-09-07] MEDS: LISINOPRIL 5 MG TAB PO SCH (08:45)
[2017-09-07] MEDS: BUDESONIDE-FORMOTEROL 160/4.5 MCG INHALER INH SCH ×2 (08:45→21:06)
[2017-09-07] MEDS ORDERED: SERTRALINE HCL 50 MG TAB PO SCH (09:00)
--- NOTE | 2017-09-07 09:48 | EKG ---
Date Performed: 09/06/2017 Time Performed: 14:03:50 PTAGE: 56 years EKG: SINUS TACHYCARDIA WITH SHORT [place] INTERVAL POSSIBLE RIGHT ATRIAL ENLARGEMENT ABNORMAL RHYTHM ECG Since the prior tracing, there has been no significant change PREVIOUS TRACING : 08/13/2017 12.21 DOCTOR: Vignesh Delarosa Interpretating Date/Time 09/07/2017 09:46:16
--- NOTE | 2017-09-07 09:52 | RADRPT ---
EXAM DATE/TIME: 09/07/2017 09:05 [facility] COMPARISON: CHEST SINGLE AP, August 12, 2017, 9:06. INDICATIONS : Cough. MEDICAL HISTORY : Hypercholesterolemia. Hypertension. Chronic obstructive pulmonary disease. Gastritis. Ulcer. GERD. Sc hizophrenia. Bipolar disorder. Buerger's disease. SURGICAL HISTORY : Left hand surgery. ENCOUNTER: Initial ACUITY: 2 days PAIN SCORE: 0/10 LOCATION: Bilateral chest FINDINGS: PA and lateral views of the chest were obtained and demonstrate underlying emphysema and bullous wood ge. There are no new confluent infiltrates or effusions. The heart and mediastinal structures remain within normal limits. Old left rib fractures again noted. The bony thorax is otherwise unremarkable. CONCLUSION: 1. No evidence of pneumonia. 2. Underlying emphysema and bullous change. Pino Horne MD on September 07, 2017 at 9:45 Board Certified Radiologist. This report was verified electronically.
[2017-09-07 12:31] LABS: INTERNATIONAL NORMALIZED RATIO 1.7 RATIO; PROTHROMBIN TIME - PATIENT 16.9 SEC (9.8-11.6)
[2017-09-07 12:45] LABS: BICARBONATE 21.9 MEQ/L (21.0-32.0); CALCIUM 8.8 MG/DL (8.5-10.1)
--- NOTE | 2017-09-07 14:59 | HHI.PYPN ---
Subjective Remarks Patient seen today with nurse Corinne, patient showing improved mood and affect. Denies suicidality or voices. Says medications working. He now states willingness to attempt sobriety. He states he may have a place to stay as of tomorrow. Thus we'll plan on discharging this patient tomorrow follow-up Jani dyson Review of Systems Except as stated in HPI: all other systems reviewed are Neg Mental Status Examination Appearance: Dirty, Disheveled Consciousness: Alert Orientation: x4 Motor Activity: Normal gait Speech: Unremarkable Language: Adequate Fund of Knowledge: Adequate Attention and Concentration: Adequate Memory: Unremarkable Mood: Sad, Anxious Affect: Sad, Anxious Thought Process & Associations: Intact Thought Content: Appropriate Hallucination Type: None Delusion Type: None Suicidal Ideation: Yes Suicidal Plan: Yes Suicidal Intention: Yes Homicidal Ideation: No Homicidal Plan: No Homicidal Intention: No Insight: Fair Judgment: Impulsive Results Labs Test 09/07/17 10:51 Prothrombin Time 16.9 SEC Prothromb Time International Ratio 1.7 RATIO Blood Urea Nitrogen 16 MG/DL Creatinine 1.00 MG/DL Random Glucose 182 MG/DL Calcium Level 8.8 MG/DL Sodium Level 132 MEQ/L Potassium Level 3.9 MEQ/L Chloride Level 100 MEQ/L Carbon Dioxide Level 21.9 MEQ/L Anion Gap 10 MEQ/L Estimat Glomerular Filtration Rate 78 ML/MIN Vitals/IOs Vital Signs Date Time Temp Pulse Resp B/P (MAP) Pulse Ox O2 Delivery O2 Flow Rate FiO2 09/07/17 06:00 97.7 95 16 117/71 (86) 96 09/05/17 17:16 21 09/05/17 08:32 Room Air Assessment & Plan Problem List: (1) Adjustment disorder with depressed mood ICD Codes: F43.21 - Adjustment disorder with depressed mood (2) Alcohol abuse with intoxication ICD Codes: F10.129 - Alcohol abuse with intoxication, unspecified Assessment & Plan Estimated LOS: days patient's mood and affect are improving. She showing some processing of his need for sobriety. Consider discharge tomorrow Justification for Cont. Inpt. At this time patient decompensated placed a lower level of care Discharge Planning To be discharged tomorrow to self appears she may have a place to stay with a friend. Follow-up Sonny Torres MD Sep 07, 2017 14:59
[2017-09-07] MEDS ORDERED: DEXTROSE 50% IN WATER 50 ML VIAL(D50) IV PUSH PRN (15:30)
[2017-09-07] MEDS ORDERED: GLUCAGON 1 MG/ML VIAL OTHER PRN (15:30)
[2017-09-07] MEDS: WARFARIN SOD 7.5 MG TAB PO SCH (16:55)
[2017-09-07] MEDS: INSULIN ASPART SUPPLEMENTAL SCALE SQ SCH ×2 (17:00→20:58)
[2017-09-07 19:23] VITALS: BP 118/76; PULSE 96; RESP 18; TEMP 98.7; O2SAT 99
[2017-09-07] MEDS: RESP: ALBUTEROL 2.5 MG/IPRATROPIUM 0.5 MG NEB (SCH) NEB (20:00)
[2017-09-07] MEDS: traZODone HCL 100 MG TAB PO SCH (21:05)
[2017-09-08] MEDS: ENOXAPARIN SODIUM 60 MG/0.6 ML SYRINGE SQ SCH (05:00)
[2017-09-08] MEDS: IBUPROFEN 600 MG TAB PO PRN ×2 (05:13→13:41)
[2017-09-08] MEDS: ACYCLOVIR 5% OINT 15 APPLIC/15 GM TUBE TOPICAL SCH ×3 (05:17→13:42)
[2017-09-08 05:30] VITALS: BP 124/68; PULSE 89; RESP 18; TEMP 98.3; O2SAT 98
[2017-09-08] MEDS: INSULIN ASPART SUPPLEMENTAL SCALE SQ SCH ×2 (08:00→12:00)
[2017-09-08 08:13] LABS: INTERNATIONAL NORMALIZED RATIO 2.9 RATIO; PROTHROMBIN TIME - PATIENT 29.3 SEC (9.8-11.6)
[2017-09-08] MEDS: RESP: ALBUTEROL 2.5 MG/IPRATROPIUM 0.5 MG NEB (SCH) NEB (08:48)
[2017-09-08] MEDS: SERTRALINE HCL 50 MG TAB PO SCH (09:00)
[2017-09-08] MEDS: BUDESONIDE-FORMOTEROL 160/4.5 MCG INHALER INH SCH (09:00)
[2017-09-08] MEDS: FOLIC ACID 1 MG TAB PO SCH (09:25)
[2017-09-08] MEDS: ASPIRIN 81 MG CHEW TAB CHEW SCH (09:25)
[2017-09-08] MEDS: HYDROCHLOROTHIAZIDE 12.5 MG CAP PO SCH (09:26)
[2017-09-08] MEDS: THIAMINE HCL 100 MG TAB PO SCH (09:26)
[2017-09-08] MEDS: guaiFENesin E.R. 600 MG TAB PO SCH (09:26)
[2017-09-08] MEDS: LURASIDONE 40 MG TAB PO SCH (09:27)
[2017-09-08] MEDS: LISINOPRIL 5 MG TAB PO SCH (09:27)
[2017-09-08] MEDS: MULTIVITAMIN TAB PO SCH (09:27)
[2017-09-08] MEDS: PANTOPRAZOLE SOD 40 MG DELAYED RELEASE TAB PO SCH (09:27)
[2017-09-08] MEDS: predniSONE 20 MG TAB PO SCH (09:28)
[2017-09-08] MEDS: AZITHROMYCIN 250 MG TAB PO SCH (09:28)
[2017-09-08] MEDS: DILTIAZEM-CD 120 MG CAP ER PO SCH (09:28)
--- NOTE | 2017-09-08 13:29 | HHI.PR ---
Subjective Remarks Follow up on patient with COPD, bronchitis, Buerger's disease. Patient seen and examined. Patient reports he feels much better. He denies any complaints. He is looking forward to being discharged soon. He is requesting a prescription of Naproxen at discharge. Objective Vitals Vital Signs Date Time Temp Pulse Resp B/P (MAP) Pulse Ox O2 Delivery O2 Flow Rate FiO2 09/08/17 05:30 98.3 89 18 124/68 (86) 98 09/07/17 19:23 98.7 96 18 118/76 (90) 99 I/O 09/07/17 09/07/17 09/07/17 09/08/17 09/08/17 09/08/17 07:00 15:00 23:00 07:00 15:00 23:00 Intake Total 480 ml Balance 480 ml Intake Oral 480 ml Result Diagram: 09/06/17 0610 09/07/17 1051 Imaging Last Impressions Chest X-Ray 09/07/17 0000 Signed Impressions: Service Date/Time: Thursday, September 07, 2017 09:05 - CONCLUSION: 1. No evidence of pneumonia. 2. Underlying emphysema and bullous change. Pino Horne MD Objective Remarks GENERAL: This is a well-nourished, well-developed thin male patient, in no apparent distress. Awake and alert. Appears well. SKIN: No rashes, ecchymoses or lesions. Cool and dry. HEAD: Atraumatic. Normocephalic. EYES: Extraocular motions intact. No scleral icterus. No injection or drainage. ENT: Nose without any drainage. Airway patent. MMM. NECK: Trachea midline. CARDIOVASCULAR: Regular rate and rhythm without murmurs, gallops, or rubs. S1 and S2 no S3-S4 RESPIRATORY: Fair air entry. No wheezing or rhonchi appreciated. GASTROINTESTINAL: Abdomen soft, non-tender, nondistended. No hepato-splenomegaly , or palpable masses. No guarding. MUSCULOSKELETAL: Extremities without clubbing, cyanosis, or edema. Amputations most of left hand except for the pinky. NEUROLOGICAL: Awake and alert. Cranial nerves II through XII grossly intact. Motor and sensory grossly within normal limits. Five out of 5 muscle strength in all muscle groups. Normal speech. Medications and IVs Current Medications Medications (Trade) Dose Ordered Sig/Sara Route Start Time Stop Time Status Last Admin (Tylenol) 650 mg Q4H PRN PO 09/05/17 14:30 Future Hold 09/05/17 20:40 (Milk Of Magnesia Liq) 30 ml DAILY PRN PO 09/05/17 14:30 (Mag-Al Plus Susp Liq) 30 ml Q6H PRN PO 09/05/17 14:30 (Proair Hfa Inh) 2 puff Q6H PRN INH 09/05/17 14:30 (Aspirin Chew) 81 mg DAILY CHEW 09/06/17 09:00 09/08/17 09:25 (Lipitor) 20 mg HS PO 09/05/17 21:00 Future Hold 09/05/17 20:41 (Zithromax) 500 mg DAILY PO 09/06/17 09:00 09/08/17 09:28 (Symbicort 160-4.5 Mcg Inh) 2 puff Q12HR INH 09/05/17 21:00 09/08/17 09:00 (Folate) 1 mg DAILY PO 09/06/17 09:00 09/08/17 09:25 (Microzide) 12.5 mg DAILY PO 09/06/17 09:00 09/08/17 09:26 (Motrin) 600 mg Q8H PRN PO 09/05/17 14:30 09/08/17 05:13 (Prinivil) 5 mg DAILY PO 09/06/17 09:00 09/08/17 09:27 (Latuda) 60 mg DAILY PO 09/06/17 09:00 09/08/17 09:27 (Pill Splitter) 1 ea UNSCH PRN OTHER 09/05/17 15:00 (Cardizem Cd) 120 mg DAILY PO 09/05/17 17:00 09/08/17 09:28 (Coumadin) 7.5 mg DAILY@1600 PO 09/05/17 16:00 Future Hold 09/07/17 16:55 (Catapres) 0.1 mg Q4H PRN PO 09/05/17 15:45 (Mucinex Er) 600 mg BID PO 09/05/17 21:00 09/08/17 09:26 (Duoneb Neb) 1 ampule Q4HR NEB PRN NEB 09/05/17 15:45 (Deltasone) 20 mg BID PO 09/05/17 21:00 09/08/17 09:28 (Protonix) 40 mg Q12HR PO 09/05/17 21:00 09/08/17 09:27 (Zovirax 5% Oint (15 Gm)) 1 applic 5 TIMES A DAY TOPICAL 09/06/17 14:00 09/08/17 05:17 Pharmacy Profile Note 0 ml @ 0 mls/hr UNSCH OTHER 09/06/17 11:45 (Romazicon Inj) 0.2 mg Q1M PRN IV PUSH 09/06/17 12:45 (Ativan) 1 mg Q4H PRN PO 09/06/17 12:45 (Ativan Inj) 1 mg Q4H PRN IV PUSH 09/06/17 12:45 (Ativan) 2 mg Q2H PRN PO 09/06/17 12:45 (Ativan Inj) 2 mg Q2H PRN IV PUSH 09/06/17 12:45 (Ativan Inj) 2 mg Q1H PRN IV PUSH 09/06/17 12:45 (Ativan Inj) 2 mg Q15M PRN IV PUSH 09/06/17 12:45 (Zoloft) 50 mg DAILY PO 09/07/17 09:00 09/08/17 09:00 (Desyrel) 200 mg HS PO 09/06/17 21:00 09/07/17 21:05 (Vitamin B1) 100 mg DAILY PO 09/07/17 09:00 09/08/17 09:26 (Theragran) 1 tab DAILY PO 09/07/17 09:00 09/08/17 09:27 (Duoneb Neb) 1 ampule Q6HR WHILE AWAKE NEB NEB 09/07/17 20:00 09/08/17 08:48 A/P Assessment and Plan Depression Suicidal ideation - admitted under Miller Act - management per psychiatric team COPD Acute on chronic bronchitis Ongoing tobaccoism - patient much improved - completed course of Azithromycin - tapering dose of po steroids - CXR shows no evidence of acute cardiopulmonary process, images reviewed by me - obtain influenza A/B - not done - sputum cx ordered - not done - discussed smoking cessation - continue on Mucinex, Symbicort and Duoneb's Hypokalemia - resolved s/p repletion Hypertension HLD - continue patient on Cardizem Cd 120mg daily, Lisinopril 5mg, HCTZ 12.5mg Transaminitis Hep C, treatment naive Alcohol abuse - ethyl alcohol 144 on admit - [facility] protocol - thiamine/multivitamin/folic acid daily - monitor for signs of withdrawal - avoid hepatotoxic agents - hold statin therapy - discussed importance of complete alcohol cessation - Recommend patient follow up with utility tech as outpatient. Buerger's Disease on chronic anticoagulation with Coumadin with goal INR 2.5-3.0 Medication noncompliance - INR therapeutic at 2.9. Lovenox discontinued. Resume home dose of Warfarin 5mg [id number] and 7.5mg WedFri - Coumadin diet - ASA daily AAA - incidental finding of 3.8cm abdominal aortic aneurysm last admit - Discussed findings with patient, he is aware, already follows with vascular surgeon as outpatient History of RPR reactive, previous treatment per patient years ago - RPR reactive with reflex to FTA ABS reactive 07/22/17 - Seen in consultation by ID 08/14/17. No further treatment if HIV negative, HIV 08/15/17 negative GERD/ulcers - continue on PPI DVT prophylaxis - patient is ambulatory Patient is cleared for discharge from hospitalist standpoint. Selina Beasley Sep 08, 2017 13:29
[2017-09-08] MEDS ORDERED: THIA100 PO (13:47)
[2017-09-08] MEDS ORDERED: PANT40TA3 PO (13:47)
[2017-09-08] MEDS ORDERED: PRED10PA PO (13:47)
[2017-09-08] MEDS ORDERED: FOLI1TAB6 PO (13:47)
[2017-09-08] MEDS ORDERED: NAPR500T2 PO (13:47)
[2017-09-08] MEDS ORDERED: LISI-519 PO (13:47)
[2017-09-08] MEDS ORDERED: ALBUAER3 INH (13:47)
[2017-09-08] MEDS ORDERED: THERTAB15 PO (13:47)
[2017-09-08] MEDS ORDERED: IPRA17I INH (13:47)
[2017-09-08] MEDS ORDERED: WARF-23 PO (13:47)
[2017-09-08] MEDS ORDERED: ASPI-516 CHEW (13:47)
[2017-09-08] MEDS ORDERED: DILT120C7 PO (13:47)
[2017-09-08] MEDS ORDERED: SYMB160A INH (13:47)
[2017-09-08] MEDS ORDERED: WARF-21 PO (13:47)
[2017-09-08] MEDS ORDERED: HYDR12.57 PO (13:47)
[2017-09-08] MEDS ORDERED: ZOLO50TA PO (14:11)
[2017-09-08] MEDS ORDERED: LURA40 PO (14:11)
[2017-09-08] MEDS ORDERED: TRAZ100T10 PO (14:11)
--- NOTE | 2017-09-08 14:15 | HHI.DS ---
Psychiatry Discharge Summary Inpatient Psychiatric care?: Yes Advance Directive: No Reason Not Provided: DOES NOT HAVE ONE Mental Health AdvanceDirective: No Health Care Proxy: No Admission Admission Date Sep 05, 2017 at 14:21 Admission Diagnosis: (1) Adjustment disorder with depressed mood ICD Code: F43.21 - Adjustment disorder with depressed mood (2) Alcohol abuse with intoxication ICD Code: F10.129 - Alcohol abuse with intoxication, unspecified Brief History 56-year-old male presents under a Miller act for depressive symptoms and suicidality. Patient has a history of Buerger's disease and he is on anticoagulation therapy chronically. He has been living in a tent, in the cold and raining over the last several days as he reportedly gave a friend one month' s rent and the friend kicked him out after a few days. The patient reports multiple symptoms of depression and suicidality, with plan to overdose. His depressive symptoms include depressed mood, anhedonia, anxiety, initial and middle insomnia, diminished energy, feelings of hopelessness and helplessness, decreased self-esteem, poor concentration and suicidal thoughts with plan to overdose on his multiple medicines. His toxicology screen is positive for alcohol but no drugs. He is unable to contract for safety at this time. In addition to his Buerger's disease, he also has COPD. Tobacco Use In Past 30 Days: 5 or More Cigarettes/Day Alcohol Use: 4 or More Times Per Week Hospital Course Patient's hospital course was uneventful, initial cooperation from day 1, though was isolation, was no behavioral issues. He whether detoxification without any difficulty. Patient now denies suicidality homicidality voices or visions. This time feel patient received maximum benefit of this hospitalization. Medicine service has adjusted his anticoagulation and appropriate medical medications. Thus patient will be discharged today to himself Rx 1 month follow-up [facility] outpatient psychiatric services follow-up with his PCP Results Blood Pressure 124 / 68 Vital Signs Date Time Temp Pulse Resp B/P (MAP) Pulse Ox O2 Delivery O2 Flow Rate FiO2 09/08/17 05:30 98.3 89 18 124/68 (86) 98 09/05/17 17:16 21 09/05/17 08:32 Room Air Laboratory Tests Test 09/06/17 06:10 09/07/17 10:51 09/08/17 05:55 Red Cell Distribution Width 17.8 % (11.6-17.2) Neutrophils (%) (Auto) 72.9 % (16.0-70.0) Prothrombin Time 14.1 SEC (9.8-11.6) 16.9 SEC (9.8-11.6) 29.3 SEC (9.8-11.6) Albumin 3.3 GM/DL (3.4-5.0) Alkaline Phosphatase 228 U/L (45-117) Aspartate Amino Transf (AST/SGOT) 341 U/L (15-37) Alanine Aminotransferase (ALT/SGPT) 460 U/L (12-78) Potassium Level 3.3 MEQ/L (3.5-5.1) Chloride Level 97 MEQ/L (98-107) HDL Cholesterol 88.6 MG/DL (40.0-60.0) 25-Hydroxy Vitamin D Total 23.5 ng/ML (30-100) Random Glucose 182 MG/DL (74-106) Sodium Level 132 MEQ/L (136-145) Estimat Glomerular Filtration Rate 78 ML/MIN (>89) Laboratory Results Test 09/06/17 06:10 Cholesterol Level 176 MG/DL (120-200) HDL Cholesterol 88.6 MG/DL (40.0-60.0) Hemoglobin A1c 5.6 % (4.3-6.0) LDL Cholesterol 73 MG/DL (0-99) Triglycerides Level 72 MG/DL (42-150) Summary of Procedures None done Imaging Last Impressions Chest X-Ray 09/07/17 0000 Signed Impressions: Service Date/Time: Thursday, September 07, 2017 09:05 - CONCLUSION: 1. No evidence of pneumonia. 2. Underlying emphysema and bullous change. Pino Horne MD Pending results at discharge: No Medications # of Antipsychotic meds at D/C: 1 Approp Antipsych med options 1 - Minimum of three failed multiple trials of monotherapy. 2 - Documented plan to taper to monotherapy due to previous use of multiple meds OR cross-taper in progress at D/C. 3 - Documentation of augmentation of Clozapine. 4 - Justification other than those listed in allowable values 1-3, document here : Discharge Discharge Date: Sep 08, 2017 Discharge Diagnosis: (1) Alcohol abuse with intoxication Diagnosis: Secondary ICD Code: F10.129 - Alcohol abuse with intoxication, unspecified (2) Adjustment disorder with depressed mood Diagnosis: Principal ICD Code: F43.21 - Adjustment disorder with depressed mood Pt Condition on Discharge: Stable Discharge Disposition: Discharge Home Discharge Instructions Diet Instructions: As Tolerated, No Restrictions Activities you can perform: Regular-No Restrictions Scheduled Appointment: Jani Santizo Act Discharge Time > 30 minutes Mental Status Examination Appearance: Dirty, Disheveled Consciousness: Alert Orientation: x4 Motor Activity: Normal gait Speech: Unremarkable Language: Adequate Fund of Knowledge: Adequate Attention and Concentration: Adequate Memory: Unremarkable Mood: Sad, Anxious Affect: Sad, Anxious Thought Process & Associations: Intact Thought Content: Appropriate Hallucination Type: None Delusion Type: None Suicidal Ideation: Yes Suicidal Plan: Yes Suicidal Intention: Yes Homicidal Ideation: No Homicidal Plan: No Homicidal Intention: No Insight: Fair Judgment: Impulsive Discharge/Advance Care Plan Health Problems: (1) Adjustment disorder with depressed mood (2) Alcohol abuse with intoxication Goals to promote your health * To prevent worsening of your condition and complications * To maintain your health at the optimal level Directions to meet your goals Take your medications as prescribed Follow your dietary instruction Follow activity as directed Keep your appointments as scheduled Take your immunizations and boosters as scheduled If your symptoms worsen call your PCP, if no PCP go to Urgent Care Center or Emergency Room For 28/02 questions related to your inpatient stay or results of tests pending at discharge, please contact Dr. Sonny Carney at Smoking is Dangerous to Your Health. Avoid second hand smoking Sonny Carney MD Sep 08, 2017 14:15
== END 2017-09-08 15:39 | disposition home or self-care (01) | DRG 881 ==
LOC: NEPD 06:00 → NEDA 14:21 → H260 17:50
PROVIDERS: ADMIT Psychiatry & Neurology Psychiatry; ATTEND Psychiatry & Neurology Psychiatry
DX: F43.21 Adjustment disorder with depressed mood (principal); I73.1 Thromboangiitis obliterans [Buerger's disease]; R45.851 Suicidal ideations; J44.0 Chronic obstructive pulmonary disease with (acute) lower respiratory infection; F10.229 Alcohol dependence with intoxication, unspecified; K21.9 Gastro-esophageal reflux disease without esophagitis; I10 Essential (primary) hypertension; E78.5 Hyperlipidemia, unspecified; K29.70 Gastritis, unspecified, without bleeding; J20.9 Acute bronchitis, unspecified; E87.6 Hypokalemia; B19.20 Unspecified viral hepatitis C without hepatic coma; I71.4 Abdominal aortic aneurysm, without rupture; H91.93 Unspecified hearing loss, bilateral; F17.200 Nicotine dependence, unspecified, uncomplicated; Y90.6 Blood alcohol level of 120-199 mg/100 ml; Z59.0 Homelessness; Z79.01 Long term (current) use of anticoagulants; Z81.1 Family history of alcohol abuse and dependence; Z81.8 Family history of other mental and behavioral disorders; Z88.5 Allergy status to narcotic agent; Z89.012 Acquired absence of left thumb; Z89.022 Acquired absence of left finger(s); Z91.14 Patient's other noncompliance with medication regimen
CPT/HCPCS: 71046; 80048; 80053; 80061; 80307; 82306; 82607; 82948; 83036; 83735; 84100; 84439; 84443; 85025; 85610; 93005; 94640; 94664; 99285; J1650; J7512; J7644

== ENCOUNTER 2018-01-09 20:54 | Observation (INO) | payer MEDICAID ==
[~2018-01-09] VITALS: Ht 175.3 cm; Wt 75.0 kg
[~2018-01-09 20:54] MED LIST changes: -ACYCLOVIR 5% TOPICAL; +ALBUAER3 INH; +AMOX500C PO; -ATOR20TA15 PO; +LURA40 PO; +NAPR500T2 PO; +PANT40TA3 PO; +PRED10PA PO; +SPIRCAP INH; +THERTAB15 PO; +THIA100 PO; +TRAM50TA PO; +TRAZ100T10 PO; -TRAZ50TA12 PO; +WARF-21 PO; +ZOLO50TA PO
[2018-01-09] MEDS ORDERED: methylPREDNISolone SOD SUCC 125 MG/2 ML VIAL IV PUSH ONE (21:45)
[2018-01-09] MEDS: RESP: ALBUTEROL 2.5 MG/IPRATROPIUM 0.5 MG NEB (SCH) INH ×3 (21:45→22:15)
[2018-01-09] MEDS ORDERED: SODIUM CHLORIDE 0.9% FLUSH 10 ML FLUSH IVF PRN (21:45)
--- NOTE | 2018-01-09 22:16 | RADRPT ---
EXAM DATE: 01/09/2018 10:11 PM EDT AGE/SEX: 57 years / Male INDICATIONS: Short of breath. CLINICAL DATA: This is the patient's initial encounter. Patient reports that signs and symptoms have been present for 1 day and indicates a pain score of 0/10. MEDICAL/SURGICAL HISTORY: None. None. COMPARISON: [facility] [place]ST PA & LAT, 09/07/2017. . FINDINGS: PA and lateral views of the chest demonstrate the lungs to be symmetrically aerated without evidence of mass, infiltrate or effusion. The cardiomediastinal contours are unremarkable. Osseous structures are intact. Remote left rib fracture. CONCLUSION: No acute findings. Remote left rib fracture. Dizziness. Electronically signed by: Jeremias Wright MD 01/09/2018 10:15 PM EDT
--- NOTE | 2018-01-09 22:36 | PD ---
HPI Chief Complaint: Shortness of breath Time Seen by Provider: 21:38 Travel History International Travel<30 days: No Contact w/Intl Traveler<30days: No Traveled to known affect area: No History of Present Illness HPI 57-year-old male with history of COPD, tobacco dependency, CAD with stent placement, alcohol dependency, presents to the emergency department for evaluation of difficulty breathing. Patient states he has COPD and he does smoke tobacco cigarettes, and he does have some mild shortness of breath on a regular occasion, however today he states it is worse. He has a coarse cough. He denies any significant pain. He denies nausea, or vomiting. Patient denies any lightheaded sensation or diaphoresis. Patient has no other symptoms to report at this time. PFSH Past Medical History Arthritis: Yes (RIGHT HAND) Asthma: Yes Autoimmune Disease: No Blood Disorders: Yes (CLOTTING DISORDERS) Bipolar Disorder: Yes Anxiety: No Depression: Yes Heart Rhythm Problems: No Cancer: No Cardiovascular Problems: No High Cholesterol: Yes Chemotherapy: No Chest Pain: Yes Congestive Heart Failure: No COPD: Yes Cerebrovascular Accident: No Diabetes: No Diminished Hearing: Yes (PT STS BILATERAL) Endocrine: No Gastrointestinal Disorders: Yes (RECENT GASTRITIS) GERD: Yes Glaucoma: No Genitourinary: No Headaches: No Hepatitis: No Hiatal Hernia: No Heparin Induced Thrombocytopen: No Hypertension: Yes Immune Disorder: No Implanted Vascular Access Dvce: No Kidney Stones: No Musculoskeletal: Yes Neurologic: No Psychiatric: Yes (Depression, Schizoaffective Disorder, Anxiety) Reproductive: No Respiratory: Yes Immunizations Current: Yes Migraines: No Myocardial Infarction: No Radiation Therapy: No Renal Failure: No Schizophrenia: Yes Seizures: No Sickle Cell Disease: No Sleep Apnea: No Thyroid Disease: No Triglycerides - High: Yes Ulcer: Yes Past Surgical History Abdominal Surgery: Yes (ABD CLOTS) AICD: No Appendectomy: No Arteriovenous Shunt: No Cholecystectomy: No Ear Surgery: No Endocrine Surgery: No Eye Surgery: No Genitourinary Surgery: No Gynecologic Surgery: No Insulin Pump: No Joint Replacement: No Neurologic Surgery: No Oral Surgery: No Pacemaker: No Thoracic Surgery: Yes (LUNGS COLLAPSED) Other Surgery: Yes (AMPUTATION OF FINGERS OF LEFT HAND) Social History Alcohol Use: Yes (few times a week) Tobacco Use: Yes (quit 07/20/17) Substance Use: Yes (PAST) Allergies-Medications (Allergen,Severity, Reaction): Coded Allergies: cephalexin (Verified Adverse Reaction, Intermediate, Nausea/Vomiting, ) morphine (Unverified Adverse Reaction, Mild, Nausea/Vomiting, 01/10/18) Reported Meds & Prescriptions Reported Meds & Active Scripts Active Thera Tablet (Multivitamin with Folic Acid) 400 Mcg Tablet 1 Tab PO DAILY Gnp Vitamin B-1 (Thiamine HCl) 100 Mg Tab 100 Mg PO DAILY Proair Hfa 8.5 GM Inh (Albuterol Sulfate) 90 Mcg/Act Aer 2 Puff INH Q6H PRN 108 mcg/actuation Naproxen 500 Mg Tab 500 Mg PO BID PRN Warfarin 7.5 Mg Tab 7.5 Mg PO Take 7.5mg tablet two times a week on Tuesday and Tuesday Hydrochlorothiazide 12.5 Mg Cap 12.5 Mg PO DAILY 30 Days Diltiazem ER 24 HR (Diltiazem HCl) 120 Mg Caper 120 Mg PO DAILY 30 Days Aspirin 81 Mg Chew 81 Mg CHEW DAILY 30 Days Warfarin 5 Mg Tab 5 Mg PO MOTUTHSASUN 30 Days Take 5mg tablet Tuesday, Tuesday, , Tuesday and Tuesday Lisinopril 5 Mg Tab 5 Mg PO DAILY 30 Days Atrovent HFA 12.9 GM Inh (Ipratropium [place]) 17 Mcg/Actuation Aer 2 Puff INH Q6HR PRN Symbicort Inh (Budesonide/Formoterol Fumarate) 160-4.5 Mcg/Act Aero 2 Puff INH Q12HR Folic Acid 1 Mg Tablet 1 Mg PO DAILY Latuda (Lurasidone) 60 Mg Tab 60 Mg PO DAILY 30 Days Nitroglycerin SL (Nitroglycerin) 0.4 Mg Subl 0.4 Mg SL DIRECTED PRN ONE TABLET UNDER THE TONGUE NEEDED FOR CHEST PAIN, MAY REPEAT EVERY FIVE MINUTES FOR A TOTAL OF 3 DOSES OR CALL 911 IF NO RELIEF Reported Amoxicillin 500 Mg Cap 500 Mg PO Q8HR 10 Days Tramadol (Tramadol HCl) 50 Mg Tab 50 Mg PO Q4-6H PRN Omeprazole 40 Mg Cap 40 Mg PO DAILY Zoloft (Sertraline HCl) 50 Mg Tab 50 Mg PO DAILY Trazodone (Trazodone HCl) 100 Mg Tablet 200 Mg PO HS Review of Systems Except as stated in HPI: all other systems reviewed are Neg Physical Exam Narrative GENERAL: Well-nourished male patient, appears in no acute distress. SKIN: Focused skin assessment warm/dry. HEAD: Atraumatic. Normocephalic. EYES: Pupils equal and round. No scleral icterus. No injection or drainage. ENT: No nasal bleeding or discharge. Mucous membranes pink and moist. NECK: Trachea midline. No JVD. CARDIOVASCULAR: No murmur appreciated. RESPIRATORY: No accessory muscle use. Coarse throughout with an intermittent expiratory wheeze. Breath sounds equal bilaterally. GASTROINTESTINAL: Abdomen soft, non-tender, nondistended. Hepatic and splenic margins not palpable. MUSCULOSKELETAL: No obvious deformities. No clubbing. No cyanosis. No edema. NEUROLOGICAL: Awake and alert. No obvious cranial nerve deficits. Motor grossly within normal limits. Normal speech. Data Data Last Documented VS Vital Signs Date Time Temp Pulse Resp B/P (MAP) Pulse Ox O2 Delivery O2 Flow Rate FiO2 01/10/18 01:54 108 18 176/84 (114) 96 Room Air 01/10/18 00:39 21 01/09/18 22:51 2.00 01/09/18 22:48 97.6 Orders Orders Complete Blood Count With Diff (01/09/18 21:40) Basic Metabolic Panel (Bmp) (01/09/18 21:40) Act Partial Throm Time (Ptt) (01/09/18 21:40) Prothrombin Time / Inr (Pt) (01/09/18 21:40) Ckmb (Isoenzyme) Profile (01/09/18 21:40) Troponin I (01/09/18 21:40) Iv Access Insert/Monitor (01/09/18 21:40) Electrocardiogram (01/09/18 21:40) Ecg Monitoring (01/09/18 21:40) Oximetry (01/09/18 21:40) Oxygen Administration (01/09/18 21:40) Chest, Pa & Lat (01/09/18 21:40) Sodium Chloride 0.9% Flush (Ns Flush) (01/09/18 21:45) Methylprednisolone So Succ Inj (Solumedr (01/09/18 21:45) Albuterol-Ipratropium Neb (Duoneb Neb) (01/09/18 21:45) CKMB (01/09/18 21:56) CKMB% (01/09/18 21:56) Potassium Chloride (Kcl) (01/10/18 00:15) Albuterol-Ipratropium Neb (Duoneb Neb) (01/10/18 00:30) Admit Order (Ed Use Only) (01/10/18 01:55) Labs Laboratory Tests Test 01/09/18 21:56 White Blood Count 5.9 TH/MM3 Red Blood Count 4.20 MIL/MM3 Hemoglobin 13.1 GM/DL Hematocrit 39.0 % Mean Corpuscular Volume 92.7 FL Mean Corpuscular Hemoglobin 31.1 PG Mean Corpuscular Hemoglobin Concent 33.5 % Red Cell Distribution Width 18.7 % Platelet Count 155 TH/MM3 Mean Platelet Volume 7.9 FL Neutrophils (%) (Auto) 73.5 % Lymphocytes (%) (Auto) 18.0 % Monocytes (%) (Auto) 7.0 % Eosinophils (%) (Auto) 0.3 % Basophils (%) (Auto) 1.2 % Neutrophils # (Auto) 4.3 TH/MM3 Lymphocytes # (Auto) 1.1 TH/MM3 Monocytes # (Auto) 0.4 TH/MM3 Eosinophils # (Auto) 0.0 TH/MM3 Basophils # (Auto) 0.1 TH/MM3 CBC Comment DIFF FINAL Differential Comment Prothrombin Time 24.1 SEC Prothromb Time International Ratio 2.4 RATIO Activated Partial Thromboplast Time 31.7 SEC Blood Urea Nitrogen 3 MG/DL Creatinine 0.78 MG/DL Random Glucose 92 MG/DL Calcium Level 8.4 MG/DL Sodium Level 140 MEQ/L Potassium Level 2.7 MEQ/L Chloride Level 106 MEQ/L Carbon Dioxide Level 21.2 MEQ/L Anion Gap 13 MEQ/L Estimat Glomerular Filtration Rate 103 ML/MIN Total Creatine Kinase 291 U/L Creatine Kinase MB 5.6 NG/ML Troponin I 0.02 NG/ML [facility] Medical Decision Making Medical Screen Exam Complete: Yes Emergency Medical Condition: Yes Medical Record Reviewed: Yes Differential Diagnosis COPD exacerbation versus CHF versus pneumonia versus ACS Narrative Course 57-year-old male presents emergency department for evaluation of shortness of breath. Patient appears nontoxic. Workup is initiated in the ambulance hallway. Once a bed becomes available, patient will be transferred and care assumed by that provider. Condition: Stable Evelia Rodriguez Jan 09, 2018 22:36
[2018-01-09 22:40] VITALS: BP 197/95; PULSE 109; RESP 24; TEMP 98; O2SAT 100
[2018-01-09 22:40] LABS: AUTOMATED NEUTROPHIL # 4.3 TH/MM3 (1.8-7.7); BASOPHIL # 0.1 TH/MM3 (0-0.2); BASOPHIL % 1.2 % (0.0-2.0); EOSINOPHIL % 0.3 % (0.0-4.0); HEMOGLOBIN 13.1 GM/DL (13.0-17.0); LYMPHOCYTE # 1.1 TH/MM3 (1.0-4.8); MEAN CELL VOLUME 92.7 FL (80.0-100.0); MEAN CORPUSCULAR HEMOGLOBIN 31.1 PG (27.0-34.0); MEAN CORPUSCULAR HGB CONC 33.5 % (32.0-36.0); MEAN PLATELET VOLUME 7.9 FL (7.0-11.0); MONOCYTE # 0.4 TH/MM3 (0-0.9); NEUT % 73.5 % (16.0-70.0); PLATELET COUNT 155 TH/MM3 (150-450); RED CELL DISTRIBUTION WIDTH 18.7 % (11.6-17.2); WHITE BLOOD COUNT 5.9 TH/MM3 (4.0-11.0)
[2018-01-09 22:48] VITALS: BP 177/94; PULSE 120; RESP 20; TEMP 97.6; O2SAT 98
[2018-01-09 22:50] VITALS: O2SAT 98
[2018-01-09 23:03] LABS: INTERNATIONAL NORMALIZED RATIO 2.4 RATIO; PROTHROMBIN TIME - PATIENT 24.1 SEC (9.8-11.6)
[2018-01-09 23:22] LABS: BICARBONATE 21.2 MEQ/L (21.0-32.0); BLOOD UREA NITROGEN 3 MG/DL (7-18); CALCIUM 8.4 MG/DL (8.5-10.1); CHLORIDE 106 MEQ/L (98-107); CREATININE 0.78 MG/DL (0.60-1.30); GLOMERULAR FILTRATION RATE 103 ML/MIN (>89); GLUCOSE,RANDOM 92 MG/DL (74-106); SODIUM (NA) 140 MEQ/L (136-145); TROPONIN I 0.02 NG/ML (0.02-0.05)
--- NOTE | 2018-01-09 23:24 | PD ---
Physical Exam Date Seen by Provider: Jan 09, 2018 Time Seen by Provider: 23:20 Narrative The patient is a 57-year-old male was initially evaluated by the mid-level provider. Please refer to the initial history, physical, diagnostic evaluation , and treatment modality plan. Data Data Last Documented VS Vital Signs Date Time Temp Pulse Resp B/P (MAP) Pulse Ox O2 Delivery O2 Flow Rate FiO2 01/10/18 01:54 108 18 176/84 (114) 96 Room Air 01/10/18 00:39 21 01/09/18 22:51 2.00 01/09/18 22:48 97.6 Orders Orders Complete Blood Count With Diff (01/09/18 21:40) Basic Metabolic Panel (Bmp) (01/09/18 21:40) Act Partial Throm Time (Ptt) (01/09/18 21:40) Prothrombin Time / Inr (Pt) (01/09/18 21:40) Ckmb (Isoenzyme) Profile (01/09/18 21:40) Troponin I (01/09/18 21:40) Iv Access Insert/Monitor (01/09/18 21:40) Electrocardiogram (01/09/18 21:40) Ecg Monitoring (01/09/18 21:40) Oximetry (01/09/18 21:40) Oxygen Administration (01/09/18 21:40) Chest, Pa & Lat (01/09/18 21:40) Sodium Chloride 0.9% Flush (Ns Flush) (01/09/18 21:45) Methylprednisolone So Succ Inj (Solumedr (01/09/18 21:45) Albuterol-Ipratropium Neb (Duoneb Neb) (01/09/18 21:45) CKMB (01/09/18 21:56) CKMB% (01/09/18 21:56) Potassium Chloride (Kcl) (01/10/18 00:15) Albuterol-Ipratropium Neb (Duoneb Neb) (01/10/18 00:30) Admit Order (Ed Use Only) (01/10/18 01:55) Labs Laboratory Tests Test 01/09/18 21:56 White Blood Count 5.9 TH/MM3 Red Blood Count 4.20 MIL/MM3 Hemoglobin 13.1 GM/DL Hematocrit 39.0 % Mean Corpuscular Volume 92.7 FL Mean Corpuscular Hemoglobin 31.1 PG Mean Corpuscular Hemoglobin Concent 33.5 % Red Cell Distribution Width 18.7 % Platelet Count 155 TH/MM3 Mean Platelet Volume 7.9 FL Neutrophils (%) (Auto) 73.5 % Lymphocytes (%) (Auto) 18.0 % Monocytes (%) (Auto) 7.0 % Eosinophils (%) (Auto) 0.3 % Basophils (%) (Auto) 1.2 % Neutrophils # (Auto) 4.3 TH/MM3 Lymphocytes # (Auto) 1.1 TH/MM3 Monocytes # (Auto) 0.4 TH/MM3 Eosinophils # (Auto) 0.0 TH/MM3 Basophils # (Auto) 0.1 TH/MM3 CBC Comment DIFF FINAL Differential Comment Prothrombin Time 24.1 SEC Prothromb Time International Ratio 2.4 RATIO Activated Partial Thromboplast Time 31.7 SEC Blood Urea Nitrogen 3 MG/DL Creatinine 0.78 MG/DL Random Glucose 92 MG/DL Calcium Level 8.4 MG/DL Sodium Level 140 MEQ/L Potassium Level 2.7 MEQ/L Chloride Level 106 MEQ/L Carbon Dioxide Level 21.2 MEQ/L Anion Gap 13 MEQ/L Estimat Glomerular Filtration Rate 103 ML/MIN Total Creatine Kinase 291 U/L Creatine Kinase MB 5.6 NG/ML Troponin I 0.02 NG/ML [facility] Medical Record Reviewed: Yes Supervised Visit with MADHU: Yes Interpretation(s) Last Impressions Chest X-Ray 01/09/182139 Signed Impressions: CONCLUSION: No acute findings. Remote left rib fracture. Dizziness. EKG reveals sinus tachycardia with occasional supraventricular premature complex. Nonspecific ST changes. Differential Diagnosis Differential diagnosis includes COPD exacerbation, bronchitis, pneumonia, pulmonary embolism, pleural effusion, pericardial effusion. Narrative Course The patient was initially evaluated by the mid-level provider. Please refer to the initial history, physical, diagnostic evaluation, and treatment modality plan. The patient was signed out 11 PM. The patient was reevaluated at 11:10 PM, he had diminished breath sounds in the bases bilateral with some prolonged expiratory phase. The patient was also noted to be tachycardic in the 120s. 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 The patient states he was living in [place], his last hospitalization for COPD was 2 months ago. His last cigarette was 1 hour prior to arrival. The patient states that shortness of breath started 15 minutes prior to arrival. He does state this is similar to previous COPD exacerbations. He states his nebulizer at home was not working, he denies taking oxygen via nasal cannula at home. The patient was administered a walking O2 sat at 11:45 PM. The patient's INR was noted to be therapeutic at 2.4. The patient was ambulated, O2 sat was in the mid 90s, however, heart rate came up into the 130s and the patient was symptomatic. Therefore, the patient will be admitted for IV steroids and duo nebs. Sepsis Criteria SIRS Criteria (2 or more): Heart rate over 90, RR > 20 or PaCO2 < 32 Physician Communication Physician Communication The on-call medical service was paged for admission. I discussed the patient with Dr. Munoz who agrees with 23 hour observation. Diagnosis Primary Impression: COPD exacerbation Additional Impression: Dyspnea Qualified Codes: R06.09 - Other forms of dyspnea Admitting Information Admitting Physician Requests: Observation Condition: Stable Supa Phan MD Jan 09, 2018 23:24
[2018-01-10] VITALS (13 sets, daily range): BP systolic 112–183; BP diastolic 59–89; PULSE 97–124; RESP 16–20; TEMP 97.5–98.7; O2SAT 94–98
[2018-01-10] MEDS ORDERED: POTASSIUM CHLORIDE 20 MEQ CONTROLLED RELEASE TAB PO ONE ×2 (00:15→04:45)
[2018-01-10] MEDS ORDERED: RESP: ALBUTEROL 2.5 MG/IPRATROPIUM 0.5 MG NEB (SCH) NEB ONE (00:30)
[2018-01-10] MEDS ORDERED: IOHEXOL 350 MG/ML 10 ML VIAL (for RAD DIAG) IVCONTRAST ONE (01:58)
[2018-01-10] MEDS ORDERED: OMEP40CA2 PO (02:12)
[2018-01-10] MEDS ORDERED: SPIRCAP INH (02:12)
[2018-01-10] MEDS ORDERED: LACTULOSE SYRUP 20 GM/30 ML CUP PO PRN (04:00)
[2018-01-10] MEDS ORDERED: BISACODYL 10 MG SUPP RECTAL PRN (04:00)
[2018-01-10] MEDS ORDERED: ACETAMINOPHEN 325 MG TAB PO PRN (04:00)
[2018-01-10] MEDS ORDERED: NALOXONE HCL 0.4 MG/ML AMP IV PUSH PRN (04:00)
[2018-01-10] MEDS ORDERED: MAGNESIUM HYDROXIDE SUSP 30 ML CUP PO PRN (04:00)
[2018-01-10] MEDS ORDERED: SODIUM CHLORIDE 0.9% FLUSH 10 ML FLUSH IV FLUSH PRN (04:00)
[2018-01-10] MEDS ORDERED: SENNOSIDES 8.6 MG TAB PO PRN (04:00)
[2018-01-10] MEDS ORDERED: LORazepam 1 MG TAB PO PRN (04:15)
[2018-01-10] MEDS ORDERED: FLUMAZENIL 0.5 MG/5 ML VIAL IV PUSH PRN (04:15)
[2018-01-10] MEDS ORDERED: LORazepam 2 MG TAB PO PRN (04:15)
[2018-01-10] MEDS ORDERED: LORazepam 2 MG/ML VIAL IV PUSH PRN ×4 (04:15)
--- NOTE | 2018-01-10 04:38 | HHI.HP ---
HPI Service [facility] Hospitalists Primary Care Physician Seth Vaughan MD Admission Diagnosis COPD exacerbation with tachycardia, dyspnea Diagnoses: Travel History International Travel<30 Days: No Contact w/Intl Traveler <30 Da: No Traveled to Known Affected Are: No History of Present Illness 57-year-old male with a past medical history significant for COPD, history of DVT anticoagulated on Coumadin, CAD, hypertension and GERD presents to the emergency department for evaluation of shortness of breath. The patient reports his shortness of breath started earlier yesterday. He states it is worse with exertion. He has had similar instances like this in the past which were diagnosed as COPD exacerbation. He has had multiple hospitalizations for psychiatric reasons here at [place] and states he goes to the hospital in [place] for his COPD. He denies any chest pain. No abdominal pain. No nausea/ vomiting/diarrhea. No lateralizing signs/symptoms. No fevers/chills. No increased cough or purulent sputum. Review of Systems Except as stated in HPI: all other systems reviewed are Neg Past Family Social History Past Medical History COPD History of DVT anticoagulated on Coumadin GERD Hypertension Coronary artery disease Hyperlipidemia Past Surgical History Partial amputation of left hand secondary to DVT Cardiac catheterization with stent placement 5 Reported Medications Reported Meds & Active Scripts Active Thera Tablet (Multivitamin with Folic Acid) 400 Mcg Tablet 1 Tab PO DAILY Gnp Vitamin B-1 (Thiamine HCl) 100 Mg Tab 100 Mg PO DAILY Proair Hfa 8.5 GM Inh (Albuterol Sulfate) 90 Mcg/Act Aer 2 Puff INH Q6H PRN 108 mcg/actuation Naproxen 500 Mg Tab 500 Mg PO BID PRN Warfarin 7.5 Mg Tab 7.5 Mg PO Take 7.5mg tablet two times a week on Tuesday and Tuesday Hydrochlorothiazide 12.5 Mg Cap 12.5 Mg PO DAILY 30 Days Diltiazem ER 24 HR (Diltiazem HCl) 120 Mg Caper 120 Mg PO DAILY 30 Days Aspirin 81 Mg Chew 81 Mg CHEW DAILY 30 Days Warfarin 5 Mg Tab 5 Mg PO MOTUTHSASUN 30 Days Take 5mg tablet Tuesday, Tuesday, , Tuesday and Tuesday Lisinopril 5 Mg Tab 5 Mg PO DAILY 30 Days Atrovent HFA 12.9 GM Inh (Ipratropium [place]) 17 Mcg/Actuation Aer 2 Puff INH Q6HR PRN Symbicort Inh (Budesonide/Formoterol Fumarate) 160-4.5 Mcg/Act Aero 2 Puff INH Q12HR Folic Acid 1 Mg Tablet 1 Mg PO DAILY Latuda (Lurasidone) 60 Mg Tab 60 Mg PO DAILY 30 Days Nitroglycerin SL (Nitroglycerin) 0.4 Mg Subl 0.4 Mg SL DIRECTED PRN ONE TABLET UNDER THE TONGUE NEEDED FOR CHEST PAIN, MAY REPEAT EVERY FIVE MINUTES FOR A TOTAL OF 3 DOSES OR CALL 911 IF NO RELIEF Reported Spiriva Handihaler (Tiotropium Inh) 18 Mcg Cap 18 Mcg INH DAILY 1 capsule = 18 mcg Amoxicillin 500 Mg Cap 500 Mg PO Q8HR 10 Days Tramadol (Tramadol HCl) 50 Mg Tab 50 Mg PO Q4-6H PRN Omeprazole 40 Mg Cap 40 Mg PO DAILY Zoloft (Sertraline HCl) 50 Mg Tab 50 Mg PO DAILY Trazodone (Trazodone HCl) 100 Mg Tablet 200 Mg PO HS Allergies: Coded Allergies: cephalexin (Verified Adverse Reaction, Intermediate, Nausea/Vomiting, ) morphine (Unverified Adverse Reaction, Mild, Nausea/Vomiting, 01/10/18) Family History Negative for CAD/DM Social History Smokes approximately half a pack per day. Drinks approximately a 12 pack of alcohol daily. Denies illicit drugs. Physical Exam Vital Signs Vital Signs Date Time Temp Pulse Resp B/P (MAP) Pulse Ox O2 Delivery O2 Flow Rate FiO2 01/10/18 02:00 105 17 168/82 (110) 97 Room Air 01/10/18 01:54 108 18 176/84 (114) 96 Room Air 01/10/18 00:39 96 21 01/10/18 00:20 120 19 180/84 (116) 97 Room Air 01/10/18 00:05 124 20 183/89 (120) 96 Room Air 01/09/18 22:51 98 Nasal Cannula 2.00 01/09/18 22:50 98 Room Air 01/09/18 22:48 97.6 120 20 177/94 (121) 98 Room Air 01/09/18 22:40 98.0 109 24 197/95 (268) 100 Physical Exam GENERAL: Thin, male lying in bed SKIN: No rashes, ecchymoses or lesions. Cool and dry. HEAD: Atraumatic. Normocephalic. No temporal or scalp tenderness. EYES: Pupils equal round and reactive. Extraocular motions intact. No scleral icterus. No injection or drainage. ENT: Nose without bleeding, purulent drainage or septal hematoma. Throat without erythema, tonsillar hypertrophy or exudate. Uvula midline. Airway patent. NECK: Trachea midline. No JVD or lymphadenopathy. Supple, nontender, no meningeal signs. CARDIOVASCULAR: Regular rate and rhythm without murmurs, gallops, or rubs. RESPIRATORY: Poor air movement. No wheezes, rales, or rhonchi. GASTROINTESTINAL: Abdomen soft, non-tender, nondistended. No hepato-splenomegaly , or palpable masses. No guarding. MUSCULOSKELETAL: Extremities without clubbing, cyanosis, or edema. No joint tenderness, effusion, or edema noted. No calf tenderness. NEUROLOGICAL: Awake and alert. Cranial nerves II through XII intact. Motor and sensory grossly within normal limits. Normal speech. Laboratory Laboratory Tests Test 01/09/18 21:56 White Blood Count 5.9 Red Blood Count 4.20 Hemoglobin 13.1 Hematocrit 39.0 Mean Corpuscular Volume 92.7 Mean Corpuscular Hemoglobin 31.1 Mean Corpuscular Hemoglobin Concent 33.5 Red Cell Distribution Width 18.7 Platelet Count 155 Mean Platelet Volume 7.9 Neutrophils (%) (Auto) 73.5 Lymphocytes (%) (Auto) 18.0 Monocytes (%) (Auto) 7.0 Eosinophils (%) (Auto) 0.3 Basophils (%) (Auto) 1.2 Neutrophils # (Auto) 4.3 Lymphocytes # (Auto) 1.1 Monocytes # (Auto) 0.4 Eosinophils # (Auto) 0.0 Basophils # (Auto) 0.1 CBC Comment DIFF FINAL Differential Comment Prothrombin Time 24.1 Prothromb Time International Ratio 2.4 Activated Partial Thromboplast Time 31.7 Blood Urea Nitrogen 3 Creatinine 0.78 Random Glucose 92 Calcium Level 8.4 Sodium Level 140 Potassium Level 2.7 Chloride Level 106 Carbon Dioxide Level 21.2 Anion Gap 13 Estimat Glomerular Filtration Rate 103 Total Creatine Kinase 291 Creatine Kinase MB 5.6 Troponin I 0.02 Result Diagram: 01/09/18215501/09/182155 Caprini VTE Risk Assessment Caprini VTE Risk Assessment: Mod/High Risk (score >= 2) Caprini Risk Assessment Model Point Value = 1 Point Value = 2 Point Value = 3 Point Value = 5 Age 41-60 Minor surgery BMI > 25 kg/m2 Swollen legs Varicose veins or History of unexplained or recurrent spontaneous Oral contraceptives or hormone replacement Sepsis (< 1 month) Serious lung disease, including pneumonia (< 1 month) Abnormal pulmonary function Acute myocardial infarction Congestive heart failure (< 1 month) History of inflammatory bowel disease Medical patient at bed rest Age 61-74 Arthroscopic surgery Major open surgery (> 45 min) Laparoscopic surgery (> 45 min) Malignancy Confined to bed (> 72 hours) Immobilizing plaster cast Central venous access Age >= 75 History of VTE Family history of VTE Factor V Leiden Prothrombin 12821H Lupus anticoagulant Anticardiolipin antibodies Elevated serum homocysteine Heparin-induced thrombocytopenia Other congenital or acquired thrombophilia Stroke (< 1 month) Elective arthroplasty Hip, pelvis, or leg fracture Acute spinal cord injury (< 1 month) Prophylaxis Regimen Total Risk Factor Score Risk Level Prophylaxis Regimen 0-1 Low Early ambulation 2 Moderate Order ONE of the following: *Sequential Compression Device (SCD) *Heparin 5000 units SQ BID 3-4 Higher Order ONE of the following medications: *Heparin 5000 units SQ TID *Enoxaparin/Lovenox 40 mg SQ daily (WT < 150 kg, CrCl > 30 mL/min) *Enoxaparin/Lovenox 30 mg SQ daily (WT < 150 kg, CrCl > 10-29 mL/min) *Enoxaparin/Lovenox 30 mg SQ BID (WT < 150 kg, CrCl > 30 mL/min) AND/OR *Sequential Compression Device (SCD) 5 or more Highest Order ONE of the following medications: *Heparin 5000 units SQ TID (Preferred with Epidurals) *Enoxaparin/Lovenox 40 mg SQ daily (WT < 150 kg, CrCl > 30 mL/min) *Enoxaparin/Lovenox 30 mg SQ daily (WT < 150 kg, CrCl > 10-29 mL/min) *Enoxaparin/Lovenox 30 mg SQ BID (WT < 150 kg, CrCl > 30 mL/min) AND *Sequential Compression Device (SCD) Assessment and Plan Assessment and Plan Assessment/plan: 1. COPD exacerbation Chest x-ray negative for acute findings, personally reviewed Duo nebs Supplemental oxygen as needed IV steroids No indication for antibiotics at this time as patient does not have a leukocytosis, does not have an increase in cough and no increased sputum production Continue home Spiriva, Symbicort 2. History of DVT Continue home Coumadin INR therapeutic at 2.4 3. Hypertension/hyperlipidemia/coronary artery disease/GERD Continue home medications 4. Alcohol abuse CIWA protocol Thiamine/folate/multivitamins Monitor for signs of withdrawal 5. Hypokalemia Status post 80 mEq p.o. Monitor BMP FEN Heart healthy diet Electrolytes: As above Warfarin Maria Elena Munoz MD Jan 10, 2018 04:38
[2018-01-10] MEDS: RESP: ALBUTEROL 2.5 MG/IPRATROPIUM 0.5 MG NEB (SCH) INH ×4 (04:45→20:14)
[2018-01-10] MEDS: methylPREDNISolone SOD SUCC 40 MG/1 ML VIAL IV PUSH SCH ×3 (05:24→21:41)
[2018-01-10 07:37] LABS: BICARBONATE 17.1 MEQ/L (21.0-32.0); CALCIUM 8.2 MG/DL (8.5-10.1); CREATININE 1.17 MG/DL (0.60-1.30)
[2018-01-10] MEDS ORDERED: DEXTROSE 50% IN WATER 50 ML VIAL(D50) IV PUSH PRN (08:15)
[2018-01-10] MEDS ORDERED: GLUCAGON 1 MG/ML VIAL OTHER PRN (08:15)
[2018-01-10] MEDS: SERTRALINE HCL 50 MG TAB PO SCH (08:31)
[2018-01-10] MEDS: MULTIVITAMINS/MINERALS THERAPEUTIC TAB PO SCH (08:31)
[2018-01-10] MEDS: THIAMINE HCL 100 MG TAB PO SCH (08:32)
[2018-01-10] MEDS: LISINOPRIL 5 MG TAB PO SCH (08:32)
[2018-01-10] MEDS: HYDROCHLOROTHIAZIDE 12.5 MG CAP PO SCH (08:33)
[2018-01-10] MEDS: PANTOPRAZOLE SOD 40 MG DELAYED RELEASE TAB PO SCH (08:33)
[2018-01-10] MEDS: DILTIAZEM-CD 120 MG CAP ER PO SCH (08:33)
[2018-01-10] MEDS: ASPIRIN 81 MG CHEW TAB CHEW SCH (08:34)
[2018-01-10] MEDS: FOLIC ACID 1 MG TAB PO SCH (08:34)
[2018-01-10] MEDS: LURASIDONE 40 MG TAB PO SCH (08:50)
[2018-01-10] MEDS ORDERED: THIAMINE HCL 100 MG TAB PO SCH (09:00)
[2018-01-10] MEDS ORDERED: FOLIC ACID 1 MG TAB PO SCH (09:00)
[2018-01-10] MEDS ORDERED: ENOXAPARIN SODIUM 40 MG/0.4 ML SYRINGE SQ SCH (09:00)
[2018-01-10 10:41] LABS: INTERNATIONAL NORMALIZED RATIO 2.2 RATIO; PROTHROMBIN TIME - PATIENT 22.3 SEC (9.8-11.6)
[2018-01-10] MEDS: TIOTROPIUM BROMIDE 18 MCG INH INH SCH (11:35)
[2018-01-10] MEDS: BUDESONIDE-FORMOTEROL 160/4.5 MCG INHALER INH SCH ×2 (11:35→21:39)
[2018-01-10] MEDS ORDERED: MAGNESIUM OXIDE 400 MG TAB PO ONE (12:15)
[2018-01-10] MEDS: INSULIN ASPART SUPPLEMENTAL SCALE SQ SCH ×3 (12:50→21:42)
[2018-01-10] MEDS: SODIUM CHLORIDE 0.9% FLUSH 10 ML FLUSH IV FLUSH SCH ×2 (12:53→21:40)
--- NOTE | 2018-01-10 13:41 | HHI.PR ---
Subjective Remarks Follow up on patient with shortness of breath. Patient seen and examined. He states he is still sob but has improved some since admission. He denies any cough or sputum production. He denies any fever or chills. He denies any chest pain or abdominal pain. He denies any nausea or vomiting. He complains of sores in his mouth and is requesting pain medication. States he was hospitalized at [facility] last week. Objective Vitals Vital Signs Date Time Temp Pulse Resp B/P (MAP) Pulse Ox O2 Delivery O2 Flow Rate FiO2 01/10/18 12:15 97.6 102 18 130/66 (87) 94 01/10/18 08:44 98.0 118 18 175/83 (113) 98 01/10/18 07:59 21 01/10/18 05:14 98.6 104 16 163/82 (109) 95 01/10/18 04:00 105 17 158/74 (102) 96 Room Air 01/10/18 02:00 105 17 168/82 (110) 97 Room Air 01/10/18 01:54 108 18 176/84 (114) 96 Room Air 01/10/18 00:39 96 21 01/10/18 00:20 120 19 180/84 (116) 97 Room Air 01/10/18 00:05 124 20 183/89 (120) 96 Room Air 01/09/18 23:35 96 Room Air 01/09/18 22:51 98 Nasal Cannula 2.00 01/09/18 22:50 98 Room Air 01/09/18 22:48 97.6 120 20 177/94 (121) 98 Room Air 01/09/18 22:40 98.0 109 24 197/95 (129) 100 I/O 01/09/18 01/09/18 01/09/18 01/10/18 01/10/18 01/10/18 07:00 15:00 23:00 07:00 15:00 23:00 Intake Total 480 ml Balance 480 ml Intake Oral 480 ml # Voids 1 Result Diagram: 01/09/18215501/10/18 0600 Imaging Last Impressions Chest X-Ray 01/09/182139 Signed Impressions: CONCLUSION: No acute findings. Remote left rib fracture. Dizziness. Objective Remarks GENERAL: Thin, male lying in bed, INAD. Awake and alert. SKIN: No rashes, ecchymoses or lesions. Cool and dry. HEAD: Atraumatic. Normocephalic. No temporal or scalp tenderness. EYES: Pupils equal round and reactive. Extraocular motions intact. No scleral icterus. No injection or drainage. ENT: Nose without bleeding or purulent drainage. Throat without erythema, tonsillar hypertrophy or exudate. Uvula midline. +Shallow ulceration noted on left side of posterior tongue. +Angular cheilitis. Airway patent. MMM. NECK: Trachea midline. No JVD or lymphadenopathy. Supple, nontender, no meningeal signs. CARDIOVASCULAR: Regular rate and rhythm without murmurs, gallops, or rubs. RESPIRATORY: Poor air movement. No wheezes, rales, or rhonchi. GASTROINTESTINAL: Abdomen soft, non-tender, nondistended. No hepato-splenomegaly , or palpable masses. No guarding. MUSCULOSKELETAL: Extremities without clubbing, cyanosis, or edema. No joint tenderness, effusion, or edema noted. No calf tenderness. +Left hand amputation NEUROLOGICAL: Awake and alert. Cranial nerves II through XII grossly intact. Motor and sensory grossly within normal limits. Normal speech. PSYCHIATRIC: Calm and cooperative with examination Procedures None A/P Assessment and Plan 57 yo male with PMHX of COPD, DVT on Coumadin, Buerger's disease, HTN, HLD, CAD , GERD and chronic bronchitis admitted with COPD exacerbation. COPD exacerbation Chest x-ray negative for acute findings No indication for antibiotics at this time as patient does not have a leukocytosis, does not have an increase in cough and no increased sputum production -continue Duo nebs -continue supplemental oxygen as needed -continue on IV steroids -continue home Spiriva, Symbicort Hyperglycemia while on IV steroids -begin accucheks and ISS while on IV steroids Buerger's Disease History of DVT On chronic anticoagulation with Coumadin with goal INR 2.5-3.0 INR therapeutic at 2.2 -continue on Coumadin. Pharmacy to dose. Hypertension/hyperlipidemia/coronary artery disease/GERD -Continue home medications Alcohol abuse -[facility] protocol -continue on Thiamine/folate/multivitamins -Monitor for signs of withdrawal Hypokalemia Status post 80 mEq p.o. 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 No further treatment if HIV negative, HIV 08/15/17 negative FEN Heart healthy diet Electrolytes: As above Warfarin Selina Beasley Jan 10, 2018 13:41
[2018-01-10] MEDS: WARFARIN SOD 5 MG TAB PO SCH (16:20)
--- NOTE | 2018-01-10 16:37 | EKG ---
Date Performed: 01/09/2018 Time Performed: 22:40:57 PTAGE: 57 years EKG: SINUS TACHYCARDIA WITH OCCASIONAL SUPRAVENTRICULAR PREMATURE COMPLEXES ABNORMAL RHYTHM ECG NO PREVIOUS TRACING Tracing remains consistent with right atrial strain and possible pulm onary disease including pulmonary embolist. EKG remains unchanged from the prior tracing. Clinical co rrelation remains important. DOCTOR: Neeru Rose Interpretating Date/Time 01/10/2018 16:36:17
[2018-01-10] MEDS: NYSTAT/DIPHENHY/LIDO MOUTHWASH (Adult) 120ML SWISH-SWAL SCH ×2 (18:09→21:41)
[2018-01-10] MEDS: traZODone HCL 100 MG TAB PO SCH (21:40)
[2018-01-11] VITALS (7 sets, daily range): BP systolic 107–126; BP diastolic 56–64; PULSE 81–115; RESP 16–20; TEMP 97–98.7; O2SAT 93–99
[2018-01-11] MEDS: RESP: ALBUTEROL 2.5 MG/IPRATROPIUM 0.5 MG NEB (SCH) INH ×3 (03:44→16:00)
[2018-01-11] MEDS: methylPREDNISolone SOD SUCC 40 MG/1 ML VIAL IV PUSH SCH (05:20)
[2018-01-11 07:16] LABS: AUTOMATED NEUTROPHIL # 22.5 TH/MM3 (1.8-7.7); BASOPHIL % 0.1 % (0.0-2.0); HEMATOCRIT 42.6 % (39.0-51.0); HEMOGLOBIN 14.2 GM/DL (13.0-17.0); LYMPH % 1.5 % (9.0-44.0); LYMPHOCYTE # 0.3 TH/MM3 (1.0-4.8); MEAN CELL VOLUME 93.6 FL (80.0-100.0); MEAN CORPUSCULAR HEMOGLOBIN 31.2 PG (27.0-34.0); MEAN CORPUSCULAR HGB CONC 33.3 % (32.0-36.0); MEAN PLATELET VOLUME 8.5 FL (7.0-11.0); MONO % 1.4 % (0.0-8.0); MONOCYTE # 0.3 TH/MM3 (0-0.9); PLATELET COUNT 178 TH/MM3 (150-450); RED BLOOD COUNT 4.55 MIL/MM3 (4.50-5.90); WHITE BLOOD COUNT 23.2 TH/MM3 (4.0-11.0)
[2018-01-11 07:30] LABS: INTERNATIONAL NORMALIZED RATIO 1.6 RATIO; PROTHROMBIN TIME - PATIENT 15.9 SEC (9.8-11.6)
[2018-01-11 07:48] LABS: BICARBONATE 24.3 MEQ/L (21.0-32.0); CALCIUM 9.1 MG/DL (8.5-10.1); CREATININE 0.89 MG/DL (0.60-1.30); MAGNESIUM 1.7 MG/DL (1.5-2.5)
[2018-01-11] MEDS: DILTIAZEM-CD 120 MG CAP ER PO SCH (09:49)
[2018-01-11] MEDS: SERTRALINE HCL 50 MG TAB PO SCH (09:49)
[2018-01-11] MEDS: LISINOPRIL 5 MG TAB PO SCH (09:49)
[2018-01-11] MEDS: FOLIC ACID 1 MG TAB PO SCH (09:50)
[2018-01-11] MEDS: HYDROCHLOROTHIAZIDE 12.5 MG CAP PO SCH (09:50)
[2018-01-11] MEDS: ASPIRIN 81 MG CHEW TAB CHEW SCH (09:50)
[2018-01-11] MEDS: THIAMINE HCL 100 MG TAB PO SCH (09:50)
[2018-01-11] MEDS: PANTOPRAZOLE SOD 40 MG DELAYED RELEASE TAB PO SCH (09:50)
[2018-01-11] MEDS: MULTIVITAMINS/MINERALS THERAPEUTIC TAB PO SCH (09:50)
[2018-01-11] MEDS: LURASIDONE 40 MG TAB PO SCH (09:51)
[2018-01-11] MEDS: SODIUM CHLORIDE 0.9% FLUSH 10 ML FLUSH IV FLUSH SCH ×2 (09:52→22:04)
[2018-01-11] MEDS: INSULIN ASPART SUPPLEMENTAL SCALE SQ SCH ×4 (09:52→22:03)
[2018-01-11] MEDS: NYSTAT/DIPHENHY/LIDO MOUTHWASH (Adult) 120ML SWISH-SWAL SCH ×4 (09:53→22:03)
[2018-01-11] MEDS: BUDESONIDE-FORMOTEROL 160/4.5 MCG INHALER INH SCH ×2 (09:54→21:59)
[2018-01-11] MEDS: TIOTROPIUM BROMIDE 18 MCG INH INH SCH (09:54)
--- NOTE | 2018-01-11 12:48 | HHI.PR ---
Subjective Remarks Follow up on patient with shortness of breath. Patient seen and examined. Patient states his breathing was better yesterday but seems to have worsened today. He denies any fever or chills. He denies any cough or sputum production. He reports some right sided chest pain with inspiration. He denies any nausea, vomiting or abdominal pain. Objective Vitals Vital Signs Date Time Temp Pulse Resp B/P (MAP) Pulse Ox O2 Delivery O2 Flow Rate FiO2 01/11/18 07:57 98.2 115 18 122/57 (78) 95 01/11/18 07:24 99 21 01/11/18 04:21 97.8 95 16 114/57 (76) 93 01/10/18 23:48 98.7 97 17 116/61 (79) 96 01/10/18 20:42 97.5 99 17 112/59 (76) 95 01/10/18 20:14 96 21 01/10/18 17:48 98.7 102 18 131/62 (85) 95 I/O 01/10/18 01/10/18 01/10/18 01/11/18 01/11/18 01/11/18 07:00 15:00 23:00 07:00 15:00 23:00 Intake Total 480 ml 720 ml Output Total 1000 ml 400 ml Balance -520 ml 320 ml Intake Oral 480 ml 720 ml Output Urine Total 1000 ml 400 ml # Voids 1 Result Diagram: 01/11/1813 01/11/18 0613 Imaging Last Impressions Chest X-Ray 01/09/182139 Signed Impressions: CONCLUSION: No acute findings. Remote left rib fracture. Dizziness. Objective Remarks GENERAL: Thin, male patient, INAD. Awake and alert. Sitting up in bedside chair. SKIN: No rashes, ecchymoses or lesions. Cool and dry. HEAD: Atraumatic. Normocephalic. No temporal or scalp tenderness. EYES: Pupils equal round and reactive. Extraocular motions intact. No scleral icterus. No injection or drainage. ENT: Nose without bleeding or purulent drainage. Throat without erythema, tonsillar hypertrophy or exudate. Uvula midline. +Shallow ulceration noted on left side of posterior tongue. +Angular cheilitis. Airway patent. MMM. NECK: Trachea midline. No lymphadenopathy. Supple, nontender, no meningeal signs. CARDIOVASCULAR: Tachycardic without murmurs, gallops, or rubs. RESPIRATORY: Poor air movement. No wheezes, rales, or rhonchi. GASTROINTESTINAL: Abdomen soft, non-tender, nondistended. No hepato-splenomegaly , or palpable masses. No guarding. MUSCULOSKELETAL: Extremities without clubbing, cyanosis, or edema. No joint tenderness, effusion, or edema noted. No calf tenderness. +Left hand amputation NEUROLOGICAL: Awake and alert. Cranial nerves II through XII grossly intact. Motor and sensory grossly within normal limits. Normal speech. PSYCHIATRIC: Calm and cooperative with examination Procedures None A/P Assessment and Plan 57 yo male with PMHX of COPD, DVT on Coumadin, Buerger's disease, HTN, HLD, CAD , GERD and chronic bronchitis admitted with COPD exacerbation. COPD exacerbation Chest x-ray negative for acute findings No indication for antibiotics at this time as patient does not have a leukocytosis, does not have an increase in cough and no increased sputum production O2 sats 95% on RA ABG reviewed -continue Duo nebs -continue supplemental oxygen as needed -no wheezing on exam, taper to po steroids -continue home Spiriva, Symbicort Tachycardic EKG shows right atrial strain and possible pulmonary disease including pulmonary embolis -obtain CTA to r/o PE Leukocytosis, suspect secondary to IV steroids Patient is afebrile, does not appear septic -monitor Hyperglycemia while on IV steroids -accucheks and ISS while on IV steroids Buerger's Disease History of DVT On chronic anticoagulation with Coumadin with goal INR 2.5-3.0 INR subtherapeutic today at 1.6 -continue on Coumadin. Pharmacy to dose. Hypertension/hyperlipidemia/coronary artery disease/GERD -Continue home medications Alcohol abuse -[facility] protocol -continue on Thiamine/folate/multivitamins -Monitor for signs of withdrawal Hypokalemia Status post 80 mEq p.o. Mag level 1.7 -resolved s/p repletion -Give mag ox 800mg x 1 dose now AAA -patient is aware and follows with vascular surgeon as outpatient History of RPR reactive, previous treatment per patient years ago RPR reactive with reflex to FTA ABS reactive 07/22/17 Seen in consultation by ID 08/14/17. No further treatment if HIV negative, HIV 08/15/17 negative FEN Heart healthy diet Electrolytes: As above Warfarin Discharge Planning Not ready for discharge. Discharge pending PT evaluation/recommendations and results of CTA. Selina Beasley Jan 11, 2018 12:48
[2018-01-11] MEDS ORDERED: MAGNESIUM OXIDE 400 MG TAB PO ONE (13:00)
[2018-01-11] MEDS ORDERED: IOHEXOL 350 MG/ML 10 ML VIAL (for RAD DIAG) IVCONTRAST ONE (13:54)
--- NOTE | 2018-01-11 14:09 | RADRPT ---
EXAM DATE: 01/11/2018 1:55 PM EDT AGE/SEX: 57 years / Male INDICATIONS: Shortness of breath; evaluate for embolism. CLINICAL DATA: This is the patient's initial encounter. Patient reports that signs and symptoms have been present for 2 days and indicates a pain score of 2/10. MEDICAL/SURGICAL HISTORY: Chronic obstructive pulmonary disease. Deep venous thrombosis. Hyperten billy. Asthma. None. RADIATION DOSE: 7.50 CTDI (mGy) COMPARISON: No prior [facility] exams available for comparison. TECHNIQUE: Volumetric scanning was performed using a multi-row detector CT scanner during bolus infu billy of 50 ml Omnipaque 350 (iohexol) nonionic water-soluble contrast as a single exam dose. The britany a was post processed with a variety of visualization algorithms including full volume maximum intensi ty projection and sliding thin slab reformation. Using automated exposure control and adjustment of the mA and/or kV according to patient size, radiation dose was kept as low as reasonably achievable t o obtain optimal diagnostic quality images. FINDINGS: Study is degraded by breathing motion artifact. Pulmonary Arteries: No filling defects are seen in the pulmonary arteries out to the subsegmental ve ssels. The left and right pulmonary arteries are normal in diameter. Lung: Pronounced diffuse emphysematous changes bilaterally. No mass or infiltrate. No bronchiectasis .. Effusion: None. Mediastinum: The heart is normal in size and shape. A tiny pericardial effusion is noted. No mass or adenopathy. Aorta and pulmonary arteries are normal in caliber.. Other: The axilla is unremarkable. CONCLUSION: 1. No pulmonary embolus. 2. Pronounced emphysematous changes. Electronically signed by: Manish Christie MD 01/11/2018 2:08 PM EDT
[2018-01-11] MEDS ORDERED: WARFARIN SOD 7.5 MG TAB PO SCH (16:00)
[2018-01-11] MEDS ORDERED: LURASIDONE 40 MG TAB PO SCH (21:00)
[2018-01-11] MEDS: traZODone HCL 100 MG TAB PO SCH (22:01)
[2018-01-12] MEDS: RESP: ALBUTEROL 2.5 MG/IPRATROPIUM 0.5 MG NEB (SCH) INH ×3 (03:15→15:26)
[2018-01-12 04:17] VITALS: BP 128/61; PULSE 57; RESP 16; TEMP 98.2; O2SAT 93
[2018-01-12 05:34] LABS: INTERNATIONAL NORMALIZED RATIO 1.6 RATIO; PROTHROMBIN TIME - PATIENT 16.3 SEC (9.8-11.6)
[2018-01-12] MEDS: INSULIN ASPART SUPPLEMENTAL SCALE SQ SCH ×2 (08:00→13:43)
[2018-01-12 08:34] VITALS: BP 142/75; PULSE 95; RESP 20; TEMP 98.9; O2SAT 96
[2018-01-12] MEDS ORDERED: predniSONE 20 MG TAB PO SCH (09:00)
[2018-01-12] MEDS ORDERED: MIDAZOLAM HCL 2 MG/2 ML VIAL ONE (09:33)
[2018-01-12] MEDS: SERTRALINE HCL 50 MG TAB PO SCH (10:16)
[2018-01-12] MEDS: MULTIVITAMINS/MINERALS THERAPEUTIC TAB PO SCH (10:16)
[2018-01-12] MEDS: HYDROCHLOROTHIAZIDE 12.5 MG CAP PO SCH (10:16)
[2018-01-12] MEDS: LISINOPRIL 5 MG TAB PO SCH (10:16)
[2018-01-12] MEDS: PANTOPRAZOLE SOD 40 MG DELAYED RELEASE TAB PO SCH (10:16)
[2018-01-12] MEDS: THIAMINE HCL 100 MG TAB PO SCH (10:16)
[2018-01-12] MEDS: DILTIAZEM-CD 120 MG CAP ER PO SCH (10:17)
[2018-01-12] MEDS: ASPIRIN 81 MG CHEW TAB CHEW SCH (10:17)
[2018-01-12] MEDS: FOLIC ACID 1 MG TAB PO SCH (10:17)
[2018-01-12] MEDS: TIOTROPIUM BROMIDE 18 MCG INH INH SCH (10:19)
[2018-01-12] MEDS: NYSTAT/DIPHENHY/LIDO MOUTHWASH (Adult) 120ML SWISH-SWAL SCH ×2 (10:20→13:44)
[2018-01-12] MEDS: BUDESONIDE-FORMOTEROL 160/4.5 MCG INHALER INH SCH (10:20)
[2018-01-12] MEDS: SODIUM CHLORIDE 0.9% FLUSH 10 ML FLUSH IV FLUSH SCH (10:20)
[2018-01-12] MEDS ORDERED: SPIRCAP INH (11:48)
[2018-01-12] MEDS ORDERED: SYMB160A INH (11:48)
[2018-01-12] MEDS ORDERED: IPRA17I INH (11:48)
[2018-01-12] MEDS ORDERED: PRED20 PO (11:48)
[2018-01-12] MEDS ORDERED: ALBUAER3 INH (11:48)
[2018-01-12 13:11] VITALS: BP 134/71; PULSE 95; RESP 18; TEMP 98.7; O2SAT 97
[2018-01-12] MEDS ORDERED: WARFARIN SOD 2.5 MG TAB PO ONE (16:00)
[2018-01-12] MEDS: WARFARIN SOD 5 MG TAB PO SCH (16:11)
--- NOTE | 2018-01-12 17:59 | HHI.DCPOC ---
Discharge Care Plan Diagnosis: (1) COPD exacerbation (2) Hypokalemia (3) Subtherapeutic anticoagulation (4) Anticoagulated on Coumadin Goals to Promote Your Health * To prevent worsening of your condition and complications * To maintain your health at the optimal level Directions to Meet Your Goals Take your medications as prescribed Follow your dietary instruction Follow activity as directed Keep your appointments as scheduled Take your immunizations and boosters as scheduled If your symptoms worsen call your PCP, if no PCP go to Urgent Care Center or Emergency Room Smoking is Dangerous to Your Health. Avoid second hand smoke Call the 24-hour hour crisis hotline for domestic abuse at Selina Beasley Jan 12, 2018 17:59
--- NOTE | 2018-01-12 17:59 | HHI.DS ---
Discharge Summary Admission Date Jan 10, 2018 at 01:57 Discharge Date: Jan 12, 2018 Admitting Diagnosis COPD exacerbation with tachycardia, dyspnea (1) COPD exacerbation ICD Code: J44.1 - Chronic obstructive pulmonary disease with (acute) exacerbation (2) Hypokalemia ICD Code: E87.6 - Hypokalemia (3) Subtherapeutic anticoagulation ICD Code: Z51.81 - Encounter for therapeutic drug level monitoring; Z79.01 - [facility] (current) use of anticoagulants Procedures None Brief History - From Admission 57-year-old male with a past medical history significant for COPD, history of DVT anticoagulated on Coumadin, CAD, hypertension and GERD presents to the emergency department for evaluation of shortness of breath. The patient reports his shortness of breath started earlier yesterday. He states it is worse with exertion. He has had similar instances like this in the past which were diagnosed as COPD exacerbation. He has had multiple hospitalizations for psychiatric reasons here at [facility] and states he goes to the hospital in [place] for his COPD. He denies any chest pain. No abdominal pain. No nausea/ vomiting/diarrhea. No lateralizing signs/symptoms. No fevers/chills. No increased cough or purulent sputum. CBC/BMP: 01/11/18 0613 01/11/18 0613 Significant Findings Laboratory Tests Test 01/09/18 21:56 01/10/18 06:00 01/10/18 10:16 01/10/18 14:48 Red Blood Count 4.20 MIL/MM3 (4.50-5.90) Red Cell Distribution Width 18.7 % (11.6-17.2) Neutrophils (%) (Auto) 73.5 % (16.0-70.0) Prothrombin Time 24.1 SEC (9.8-11.6) 22.3 SEC (9.8-11.6) Activated Partial Thromboplast Time 31.7 SEC (24.3-30.1) Blood Urea Nitrogen 3 MG/DL (7-18) 5 MG/DL (7-18) Calcium Level 8.4 MG/DL (8.5-10.1) 8.2 MG/DL (8.5-10.1) Potassium Level 2.7 MEQ/L (3.5-5.1) 3.4 MEQ/L (3.5-5.1) Creatine Kinase MB 5.6 NG/ML (0.5-3.6) Random Glucose 239 MG/DL (74-106) Carbon Dioxide Level 17.1 MEQ/L (21.0-32.0) Anion Gap 20 MEQ/L (5-15) Estimat Glomerular Filtration Rate 64 ML/MIN (>89) Arterial Blood pH 7.48 (7.380-7.420) Arterial Blood Partial Pressure CO2 34 mmHg (38-42) Test 01/11/18 06:13 01/12/18 04:46 White Blood Count 23.2 TH/MM3 (4.0-11.0) Red Cell Distribution Width 19.0 % (11.6-17.2) Neutrophils (%) (Auto) 97.0 % (16.0-70.0) Lymphocytes (%) (Auto) 1.5 % (9.0-44.0) Neutrophils # (Auto) 22.5 TH/MM3 (1.8-7.7) Lymphocytes # (Auto) 0.3 TH/MM3 (1.0-4.8) Prothrombin Time 15.9 SEC (9.8-11.6) 16.3 SEC (9.8-11.6) Random Glucose 157 MG/DL (74-106) Estimat Glomerular Filtration Rate 88 ML/MIN (>89) Imaging Last Impressions CT Angiography 01/11/18 0000 Signed Impressions: CONCLUSION: 1. No pulmonary embolus. 2. Pronounced emphysematous changes. Chest X-Ray 01/09/18 2140 Signed Impressions: CONCLUSION: No acute findings. Remote left rib fracture. Dizziness. PE at Discharge GENERAL: Thin, male patient, INAD. Awake and alert. Sitting up in bedside chair. SKIN: No rashes, ecchymoses or lesions. Cool and dry. HEAD: Atraumatic. Normocephalic. No temporal or scalp tenderness. EYES: Pupils equal round and reactive. Extraocular motions intact. No scleral icterus. No injection or drainage. ENT: Nose without bleeding or purulent drainage. Throat without erythema, tonsillar hypertrophy or exudate. Uvula midline. +Shallow ulceration noted on left side of posterior tongue. +Angular cheilitis. Airway patent. MMM. NECK: Trachea midline. No lymphadenopathy. Supple, nontender, no meningeal signs. CARDIOVASCULAR: Tachycardic without murmurs, gallops, or rubs. RESPIRATORY: Poor air movement. No wheezes, rales, or rhonchi. GASTROINTESTINAL: Abdomen soft, non-tender, nondistended. No hepato-splenomegaly , or palpable masses. No guarding. MUSCULOSKELETAL: Extremities without clubbing, cyanosis, or edema. No joint tenderness, effusion, or edema noted. No calf tenderness. +Left hand amputation NEUROLOGICAL: Awake and alert. Cranial nerves II through XII grossly intact. Motor and sensory grossly within normal limits. Normal speech. PSYCHIATRIC: Calm and cooperative with examination Pt update on day of discharge Seen and examined. Patient reports breathing has improved. Denies any new medical complaints. Denies any fever or chills. Denies any chest pain. Denies any nausea, vomiting or abdominal pain. Discussed with nursing staff, no acute issues noted. Hospital Course Patient admitted with COPD exacerbation. Chest x-ray did not show any acute findings. Patient started on scheduled duo nebs and supplemental oxygen as needed. Also started on IV steroids. EKG showed right atrial strain and possible pulmonary disease including pulmonary embolus. Follow-up CTA was negative for PE. Patient improved clinically. IV steroids were tapered down to oral steroids. Patient underwent home oxygen walk test but did not qualify. Patient had hypokalemia with potassium of 2.7 which was treated with po repletion with good response. Patient was seen in consultation by PT and no needs were identified at discharge. Patient was discharged from hospital in stable condition Pt Condition on Discharge: Stable Discharge Disposition: Discharge Home Discharge Time: > 30 minutes Discharge Instructions DIET: Follow Instructions for: Heart Healthy Diet Activities you can perform: Regular-No Restrictions Follow up Referrals: PCP Follow-up - 1 Week with Diana Dahiana New Medications: Prednisone (Prednisone) 20 Mg Tab 40 MG PO DAILY for COPD exacerbation, #3 TAB Continued Medications: Albuterol 8.5 GM Inh (Proair Hfa 8.5 GM Inh) 90 Mcg/Act Aer 2 PUFF INH Q6H PRN for SHORTNESS OF BREATH, #1 INHALER 0 Refills (This prescription has been renewed) 108 mcg/actuation Aspirin (Aspirin) 81 Mg Chew 81 MG CHEW DAILY for Blood Clot Prevention for 30 Days, #30 TAB 0 Refills Budesonide-Formoterol Inh (Symbicort Inh) 160-4.5 Mcg/Act Aero 2 PUFF INH Q12HR for COPD, #1 INHALER 0 Refills (This prescription has been renewed) Diltiazem ER 24 HR (Diltiazem ER 24 HR) 120 Mg Caper 120 MG PO DAILY for Blood Pressure Management for 30 Days, #30 CAP 0 Refills Folic Acid (Folic Acid) 1 Mg Tablet 1 MG PO DAILY for health, #30 TAB 0 Refills Hydrochlorothiazide (Hydrochlorothiazide) 12.5 Mg Cap 12.5 MG PO DAILY for Blood Pressure Management for 30 Days, #30 CAP 0 Refills Ipratropium HFA 12.9 GM Inh (Atrovent HFA 12.9 GM Inh) 17 Mcg/Actuation Aer 2 PUFF INH Q6HR PRN for SHORTNESS OF BREATH, #1 INHALER 0 Refills (This prescription has been renewed) Lisinopril (Lisinopril) 5 Mg Tab 5 MG PO DAILY for Blood Pressure Management for 30 Days, #30 TAB 0 Refills Lurasidone (Latuda) 60 Mg Tab 60 MG PO DAILY for health for 30 Days, #30 TAB 0 Refills Multivitamin with Folic Acid (Thera Tablet) 400 Mcg Tablet 1 TAB PO DAILY for Nutritional Supplement, #30 TAB Nitroglycerin SL (Nitroglycerin SL) 0.4 Mg Subl 0.4 MG SL DIRECTED PRN for CHEST PAIN, #100 TAB.SL 0 Refills ONE TABLET UNDER THE TONGUE NEEDED FOR CHEST PAIN, MAY REPEAT EVERY FIVE MINUTES FOR A TOTAL OF 3 DOSES OR CALL 911 IF NO RELIEF Omeprazole (Omeprazole) 40 Mg Cap 40 MG PO DAILY Sertraline (Zoloft) 50 Mg Tab 50 MG PO DAILY, #30 TAB 0 Refills Thiamine HCl (Gnp Vitamin B-1) 100 Mg Tab 100 MG PO DAILY for Nutritional Supplement, #30 TAB Tiotropium Inh (Spiriva Handihaler) 18 Mcg Cap 18 MCG INH DAILY for COPD, #30 CAP 0 Refills (This prescription has been renewed ) 1 capsule = 18 mcg Trazodone (Trazodone) 100 Mg Tablet 200 MG PO HS for Control Depression, #30 TAB 0 Refills Warfarin (Warfarin) 5 Mg Tab [facility] for 30 Days, #60 TAB 0 Refills Take 5mg tablet Tuesday, Tuesday, , Tuesday and Tuesday Warfarin (Warfarin) 7.5 Mg Tab 7.5 MG PO for Blood Clot Prevention, #30 TAB 0 Refills Take 7.5mg tablet two times a week on Tuesday and Tuesday Discontinued Medications: Amoxicillin (Amoxicillin) 500 Mg Cap 500 MG PO Q8HR for 10 Days, #30 Naproxen (Naproxen) 500 Mg Tab 500 MG PO BID PRN for prn, #10 TAB 0 Refills Tramadol (Tramadol) 50 Mg Tab 50 MG PO Q4-6H PRN for PAIN 1 TO 10 AND/OR AGITATION Selina Beasley Jan 12, 2018 17:59
== END 2018-01-12 16:28 | disposition home or self-care (01) ==
LOC: NEPE 20:54 → NEDA 01-10 01:57 → NEPGCP 01-10 05:08
PROVIDERS: ADMIT Family Medicine; ATTEND Family Medicine
DX: J44.1 Chronic obstructive pulmonary disease with (acute) exacerbation (principal); R00.0 Tachycardia, unspecified; E87.6 Hypokalemia; K21.9 Gastro-esophageal reflux disease without esophagitis; I25.10 Atherosclerotic heart disease of native coronary artery without angina pectoris; I10 Essential (primary) hypertension; Z86.718 Personal history of other venous thrombosis and embolism; Z79.01 Long term (current) use of anticoagulants
CPT/HCPCS: 36600; 71046; 71275; 80048; 82550; 82552; 82805; 82948; 83735; 84484; 85025; 85610; 85730; 93005; 94618; 94640; 94664; 96372; 96374; 96376; 97110; 97116; 97162; 99285; G0378; G8987; G8988; J1650; J1815; J2250; J2920; J2930; J7512; Q9967